=== PATIENT | male | born 1950 | race Caucasian/White ===

== ENCOUNTER → 2016-11-30 | Outpatient (CLI) | payer BC ==
[2016-11-30 07:19] LABS: Anion Gap 10 mmol/L; Blood Urea Nitrogen 32 mg/dL (9-20); Calcium 9.8 mg/dL (8.4-10.2); Carbon Dioxide 27 mmol/L (22-30); Chloride 104 mmol/L (98-107); Glucose 154 mg/dL (74-99); Non-African American GFR(MDRD) >60 (>60 ml/min/1.73 sqM); Potassium 4.6 mmol/L (3.5-5.1); Sodium 141 mmol/L (137-145)
--- NOTE | 2016-11-30 09:44 | MR ---
EXAMINATION TYPE: MR foot LT wo/w con DATE OF EXAM: 11/30/2016 COMPARISON: None available HISTORY: 66-year-old male with pain, redness, and swelling for 5 months, evaluate for left great toe osteomyelitis Technique: Multiplanar, multisequence images of the left foot were obtained before and after administ ration of 19 mL intravenous MultiHance gadolinium contrast. FINDINGS: There appears to be prior partial amputation of the first distal phalanx. The distal phalangeal base remains. Within this residual bone, there are 2 discrete circumscribed lesions measuring 11 x 8 x 11 mm and 8 x 7 x 11 mm. These are situated adjacent to each other oriented horizontally with the more m edial lesion projecting dorsally beyond the expected cortical margin. These show T2 bright signal and T1 hypointensity without any appreciable postcontrast enhancement. The surrounding bone shows preser douglas fatty marrow signal. There is no suspicious bone marrow replacement or bone marrow edema identified. Hallux valgus deformity with bunion and mild degenerative change at the first MTP joint. There is a moderate first MTP joint effusion. There is some corresponding enhancement suggesting some associated synovitis. The overlying extensor hallucis longus appear satisfactory. Mild edematous change within the plantar musculature nonspecific. Some mild dorsal mid foot degenerat freddy change especially at the talonavicular joint. IMPRESSION: 1. Prior partial great toe amputation. There are 2 cystic-appearing, nonenhancing lesions measuring u p to 1.1 cm within the residual distal phalanx. The exact etiology is uncertain. Some possibilities i nclude chronic granulomas or epidermal inclusion cysts. Surgical exploration can be considered if the patient remains symptomatic. 2. The signal changes within these lesions and in the surrounding bone do not suggest osteomyelitis. 3. 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 There is associated first MTP joint effusion and synovitis.
== END | disposition home or self-care (01) ==
LOC: RADMRIMAIN 06:35
PROVIDERS: ATTEND Internal Medicine Infectious Disease
DX: M19.072 Primary osteoarthritis, left ankle and foot (principal); M20.12 Hallux valgus (acquired), left foot; M65.872 Other synovitis and tenosynovitis, left ankle and foot
CPT/HCPCS: 80048; 73720; A9577

== ENCOUNTER → 2018-04-14 | Outpatient (CLI) | payer MEDICARE | END | disposition home or self-care (01) | LOC: LABWHC1 10:49 | PROVIDERS: ATTEND Internal Medicine | DX: E11.21 Type 2 diabetes mellitus with diabetic nephropathy (principal) | CPT/HCPCS: 36415; 83970 ==

== ENCOUNTER 2019-02-26 11:52 | Emergency (ER) | payer MEDICARE ==
[2019-02-26 12:05] VITALS: RESP 18
[2019-02-26] MEDS ORDERED: ACETAMINOPHEN TAB 500 MG TAB PO STA (13:24)
[2019-02-26] MEDS ORDERED: DIPH,PERTUS(ACELL)TETVAC-LF 0.5 ML VIAL IM ONE (13:24)
[2019-02-26] MEDS ORDERED: LIDOCAINE 1% INJ 10MG/ML (20 ML MDV) SQ ONE (13:24)
--- NOTE | 2019-02-26 13:32 | ED ---
General Adult HPI - General Chief complaint: Fall Stated complaint: fall 8' from ladder, head injury Time Seen by Provider: 02/26/19 13:07 Source: patient, RN notes reviewed Mode of arrival: ambulatory Limitations: no limitations - History of Present Illness Initial comments: 68-year-old male with a past medical history of prostate cancer, diabetes pam itus, hypertension presents to the emergency department for fall. Patient states he was getting off the roof of his motorhome. States he was climbing down a ladder when he fell onto his left side the back of his left head and his elbow. He did not lose consciousness. He does not take blood thinners. Patient states his feet were at about 3 or 4 feet when this happened. Denies any back pain or chest pain. Denies falling on his feet.Patient has no other complaints at this time including shortness of breath, chest pain, abdominal pain, nausea or vomiting, headache, or visual changes. - Related Data Allergies Allergy/AdvReac Type Severity Reaction Status Date / Time No Known Allergies Allergy Verified 02/26/19 12:05 Review of Systems ROS Statement: Those systems with pertinent positive or pertinent negative responses have been documented in the HPI. ROS Other: All systems not noted in ROS Statement are negative. Past Medical History Past Medical History: Cancer, Diabetes Mellitus, Hypertension Additional Past Medical History / Comment(s): prostate cancer History of Any Multi-Drug Resistant Organisms: None Reported Past Surgical History: Orthopedic Surgery Past Psychological History: Anxiety, Depression Smoking Status: Never smoker Past Alcohol Use History: None Reported Past Drug Use History: None Reported General Exam Limitations: no limitations General appearance: alert, in no apparent distress Head exam: Absent: atraumatic (patient has large hematoma to the posterior left scalp, parietal region) Eye exam: Present: normal appearance, PERRL, EOMI. Absent: scleral icterus, conjunctival injection, periorbital swelling ENT exam: Present: normal exam, mucous membranes moist Neck exam: Present: normal inspection, other (C-collar in place). Absent: tenderness, meningismus, full ROM, lymphadenopathy Respiratory exam: Present: normal lung sounds bilaterally. Absent: respiratory distress, wheezes, rales, rhonchi, stridor, chest wall tenderness (No ecchymosis or bruising of the chest back or abdomen) Cardiovascular Exam: Present: regular rate, normal rhythm, normal heart sounds. Absent: systolic murmur, diastolic murmur, rubs, gallop, clicks GI/Abdominal exam: Present: soft, normal bowel sounds. Absent: distended, tenderness, guarding, rebound, rigid Back exam: Absent: CVA tenderness (R), CVA tenderness (L), vertebral tenderness (No tenderness of the thoracic or lumbar spines) Neurological exam: Present: alert, oriented X3, CN II-XII intact Course Vital Signs 02/26/19 02/26/19 12:01 15:55 Temperature 98.4 F 98.0 F Pulse Rate 58 L 74 Respiratory 18 18 Rate Blood Pressure 132/71 137/82 O2 Sat by Pulse 98 98 Oximetry Procedures - Laceration Laceration #1 Consent Obtained: verbal consent Indication: laceration Site: upper extremity Size (cm): 3 Description: linear Depth: simple, single layer Anesthetic Used: lidocaine 1% Anesthesia Technique: local infiltration Amount (mls): 10 Pre-repair: wound explored, irrigated extensively (with saline pressure irrig ation), deep structures intact Type of Sutures: other (ethilon) Size of Sutures: 4-0 Number of Sutures: 4 Technique: simple, interrupted Patient Tolerated Procedure: well, no complications Medical Decision Making - Medical Decision Making 68-year-old male with a past medical history of prostate cancer, diabetes mellitus, hypertension presents to the emergency department for fall. Patient states she was getting off the roof of his motorhome and climbing down a ladder. States his feet were about 3 feet off the ground when he fell and hit his head. He also landed on his left elbow. No loss of consciousness. No blood thinners on board. On exam patient has a large hematoma noted of the posterior parietal left scalp. No focal neurologic deficits. Normal gait. Patient also appears to have a 2 cm laceration over the olecranon of the left elbow. No pain with movement of the left elbow. Patient does not have any evidence of trauma, tenderness, ecchymosis, or contusions on the chest abdomen or back. CT of the head and neck was obtained which showed no acute fracture or dislocation evident in the cervical spine and no acute intracranial hemorrhage mass effect or midline shift. X-ray of the left elbow showed a soft tissue laceration over the olecranon with no acute fracture or dislocation. This was cleaned thoroughly with saline pressure irrigation. 4 sutures were applied. Tetanus was updated. This is well approximated and has enough give to bend the elbow. Patient will follow up with primary care for recheck on head injury as well as laceration repair. He will return in 7-10 days for suture removal. Disposition Clinical Impression: Laceration, Fall, Head injury Disposition: HOME SELF-CARE Condition: Good Instructions (If sedation given, give patient instructions): Care For Your Stitches (ED), Laceration (ED), Head Injury (ED) Additional Instructions: Please monitor for signs infection such as spreading or streaking redness, drainage, fever. Follow-up with primary care in 1-2 days for recheck of your head as well as the sutures. Return in 7-10 days to have sutures removed. Is patient prescribed a controlled substance at d/c from ED?: No Referrals: Brandt De Jesus MD [Primary Care Provider] - 1-2 days Time of Disposition: 15:49
--- NOTE | 2019-02-26 14:56 | CT ---
EXAMINATION TYPE: CT brain clemente claire DATE OF EXAM: 02/26/2019 COMPARISON: NONE HISTORY: Fall from ladder, approximately 7 feet. Left superior head injury. CT DLP: 1498 mGycm. Automated Exposure Control for Dose Reduction was Utilized. TECHNIQUE: CT scan of the head and cervical spine are performed without contrast. FINDINGS: There is a left parieto-occipital scalp hematoma near the skull vertex measuring 1.4 cm in greatest thickness. There is no acute intracranial hemorrhage, mass effect, or midline shift identi fied. The ventricles and sulci are symmetrically prominent compatible with age-related volume loss. The globes are intact and the visualized sinuses are clear. Cervical spine is visualized in its entirety from C1 through upper thoracic levels and demonstrates s atisfactory alignment without evidence of acute fracture. Moderate multilevel degenerative disc dise ase is seen of the cervical spine with multilevel uncovertebral hypertrophy, intervertebral disc spac e narrowing, vacuum disc disease, as small anterior osteophytes, and facet arthropathy. There is mini mal retrolisthesis of C3 on C4, C4 and C5 and C5 on C6 and is likely on a degenerative basis. Prevert ebral soft tissue appears within normal limits. The C1-C2 articulation is unremarkable. Mild emphyse matous changes are seen of the lung apices as well as scattered areas of subsegmental atelectasis. IMPRESSION: 1. There is no acute fracture or dislocation evident in the cervical spine. 2. No acute intracranial hemorrhage, mass effect, or midline shift is seen. 3. Left posterior parietal-occipital scalp hematoma near the skull vertex measures 1.4 cm in greatest thickness. 4. Moderate multilevel degenerative disc disease of the cervical spine with multilevel malalignment l ikely on the basis of degenerative disc disease.
--- NOTE | 2019-02-26 14:58 | XR ---
EXAMINATION TYPE: XR elbow complete LT DATE OF EXAM: 02/26/2019 CLINICAL HISTORY: Left elbow laceration and pain after fall TECHNIQUE: Frontal, lateral and oblique images of the left elbow are obtained. COMPARISON: None FINDINGS: There is no acute fracture/dislocation evident in the left elbow. No abnormal fat pad sig ns are seen. Soft tissue laceration is seen overlying the olecranon. No radiopaque foreign body is se en. IMPRESSION: Soft tissue laceration over the olecranon with no acute fracture or dislocation in the le ft elbow.
[2019-02-26 15:59] VITALS: BP 137/82; PULSE 74; TEMP 98
== END 2019-02-26 15:55 | disposition home or self-care (01) ==
LOC: EC 11:52
DX: S51.012A Laceration without foreign body of left elbow, initial encounter (principal); S00.03XA Contusion of scalp, initial encounter; Z85.46 Personal history of malignant neoplasm of prostate; Z23 Encounter for immunization; W11.XXXA Fall on and from ladder, initial encounter; Y93.39 Activity, other involving climbing, rappelling and jumping off; Y92.009 Unspecified place in unspecified non-institutional (private) residence as the place of occurrence of the external cause
CPT/HCPCS: 12002; 70450; 72125; 90471; 90715; 99284

== ENCOUNTER 2020-04-27 23:24 | Inpatient (IN) | payer MEDICARE ==
[2020-04-28] MEDS: HYDROmorphone 1 MG/ML 1 ML SYRINGE IVP PRN ×7 (04:12→23:56)
[2020-04-28] MEDS: SODIUM CHLORIDE 0.9% 1,000 ML IV SCH ×2 (04:13→10:23)
[2020-04-28] MEDS: ONDANSETRON 4 MG/2 ML VIAL IVP PRN ×3 (04:23→23:56)
[2020-04-28 07:07] LABS: Glucose,Whole Blood 240 mg/dL (75-99)
[2020-04-28] MEDS: ATORVASTATIN 20 MG TAB PO SCH (07:16)
[2020-04-28] MEDS: SERTRALINE 100 MG TAB PO SCH ×2 (07:16→19:42)
[2020-04-28] MEDS: lisinopriL 20 MG TAB PO SCH (07:16)
[2020-04-28] MEDS: atenoloL 25 MG TAB PO SCH (07:16)
[2020-04-28] MEDS: ASPIRIN 81 MG PO SCH (07:16)
[2020-04-28] MEDS: glipiZIDE 5 MG TAB PO SCH (07:16)
[2020-04-28 07:29] LABS: Basophils # (A) 0.1 k/uL (0-0.2); Basophils % (A) 0 %; Eosinophils # (A) 0.1 k/uL (0-0.7); Eosinophils % (A) 0 %; HCT 47.3 % (39.0-53.0); HGB 15.4 gm/dL (13.0-17.5); Lymphocytes # (A) 1.1 k/uL (1.0-4.8); Lymphocytes % (A) 6 %; MCHC 32.6 g/dL (31.0-37.0); MCV 92.2 fL (80.0-100.0); Mean Platelet Volume 7.1; Monocytes % (A) 6 %; Neutrophils # (A) 15.3 k/uL (1.3-7.7); Neutrophils % (A) 86 %; Platelet Count 259 k/uL (150-450); RBC 5.13 m/uL (4.30-5.90); RDW 12.8 % (11.5-15.5); WBC 17.9 k/uL (3.8-10.6)
[2020-04-28 11:27] LABS: African American GFR (CKD) 54.7 (60.0-200.0); Anion Gap 9.5 mmol/L (4.00-12.00); BUN/Creat Ratio 25.33 Ratio (12.00-20.00); Calcium 9.3 mg/dL (8.7-10.3); Carbon Dioxide 22.5 mmol/L (21.6-31.8); Non-African American GFR(CKD) 47.2 (60.0-200.0); Potassium 4.6 mmol/L (3.5-5.5)
[2020-04-28 11:39] LABS: Glucose,Whole Blood 175 mg/dL (75-99)
[2020-04-28 16:30] LABS: Glucose,Whole Blood 162 mg/dL (75-99)
--- NOTE | 2020-04-28 16:53 | P.HPIM ---
History of Present Illness H&P Date: 04/28/20 Chief Complaint: Transfer from [facility] for Acute pancreatitis Mr. Perez is a 70 y/o male with the PMH of hypertension, diabetes, prostate cancer, anxiety with depression sent in from [facility] for Acute Pancreatitis. Patient presented to [facility] with a chief complaint of epigastric pain that started 30 minutes ago. Initially in the EMS he was considered STEMI alert, given 325 mg of aspirin along with Dilaudid and Zofran for nausea and vomiting. EKG done at [facility] showed no acute ST elevation MT he was given 1 L of normal saline bolus and started on IV fluids. Patient's troponins and cardiac CPK level along with CK-MB levels were within normal limits. And his labs were consistent with pancreatitis which showed elevated amylase and lipase. And he caught an abdominal CAT scan with contrast showing acute pancreatitis. Patient had his lactic acid levels checked which were 3.8 and a repeat with fluids was 1. Patient also had elevated white count at 29 and blood cultures were drawn at that time. CT scan did not show evidence of abscess and clinically he did not have fevers so he was not started on antibiotics. So the patient is transferred to [facility] for GI consultation as the patient also had significant history of previous pancreatitis 5 years ago. Patient mentions that he had an acute episode of pancreatitis 5 years ago, he was not sure what the etiology was at that time. On reviewing his medications patient was started on glipizide 4 days ago. Patient states that he has been h aving epigastric pain which is 8 out of 10 in intensity. It radiates to the entire abdomen. Associated with nausea. He states that Zofran is helping with the vomiting. Patient had a bowel movement this morning which was large. He denies having any blood in his stool. Patient denies having any fevers chills or rigors. No chest pain or palpitations. His pain is mostly in the epigastric area below his rib cage. Patient denies having any chest pain or palpitations. No orthopnea PND or lower extremity swelling. Patient denies having any change in his weight recently. Patient denies alcohol abuse. Records from [facility] have been reviewed. Patient had an EKG in the ED which was showing sinus rhythm. No ST or T-wave elevation. Patient had troponin less than 0.012. Amylase of 3919, white count of 29, hemoglobin 16.7, platelets 406. Sodium 140, potassium 4.1, para 98, bicarbonate 30, B and 31, creatinine 1.2. Calcium 10.1, AST 33, ALT 21, gram-positive 78, bilirubin 0.7 lipase more than 20,000S$0.14 is consistent with acute pancreatitis and nonobstructing left renal calculi and large bowel fluid levels suggestive of mildly a day. Numerous bilateral renal cortical cysts. PT of 10.9, INR of 1.03. Chest x-ray showing no acute cardiopulmonary process. Review of Systems REVIEW OF SYSTEMS: PSYCH: No active anxiety or depression NEURO:No c/o weakness of the extremties, No facial droop, No speech abnormalities. VASCULAR: Peripheral nervous system within the normal limits no edema HEMATOLOGIC: No history of easy bleeding and bruising . No recent infections . RESPIRATORY: No cough, No SOB, No chest discomfort. IMMUNE: No infections INTEGUMENT: no rashes OPHTHALMOLOGIC: No blurry vision and no eye discharge : No dysuria or hematuria CARDIAC: No chest pain , shortness of breath , paroxysmal nocturnal dyspnea MUSCULOSKELETAL : No Aches or pains in the joints or muscles. GI: As per HPI Past Medical History Past Medical History: Cancer, Diabetes Mellitus, Hypertension Additional Past Medical History / Comment(s): prostate cancer History of Any Multi-Drug Resistant Organisms: None Reported Past Surgical History: Heart Catheterization, Orthopedic Surgery Additional Past Surgical History / Comment(s): shoulders, knee surgeries and then amputation of left great toe (6years) infection Past Anesthesia/Blood Transfusion Reactions: No Reported Reaction Past Psychological History: Anxiety, Depression Smoking Status: Never smoker Past Alcohol Use History: None Reported Past Drug Use History: None Reported - Past Family History Mother Family Medical History: Cancer Additional Family Medical History / Comment(s): ovarian and lung cancer Father Family Medical History: Cancer Medications and Allergies Home Medications Medication Instructions Recorded Confirmed Type ALPRAZolam [Xanax] 0.25 mg PO HS 04/28/20 04/28/20 History Aspirin [Adult Low Dose Aspirin EC] 81 mg PO DAILY 04/28/20 04/28/20 History Enalapril Maleate [Vasotec] 5 mg PO BID 04/28/20 04/28/20 History Latanoprost/Pf [Latanoprost 0.005% 1 drop BOTH EYES HS 04/28/20 04/28/20 History Eye Drop] Sertraline HCl [Zoloft] 100 mg BID 04/28/20 04/28/20 History Simvastatin 40 mg DAILY 04/28/20 04/28/20 History atenoloL [Atenolol] 25 mg PO DAILY 04/28/20 04/28/20 History glipiZIDE XL [Glucotrol Xl] 5 mg PO DAILY 04/28/20 04/28/20 History metFORMIN HCL ER [Glucophage Xr] 500 mg PO AC-BID 04/28/20 04/28/20 History Allergies Allergy/AdvReac Type Severity Reaction Status Date / Time No Known Allergies Allergy Verified 04/28/20 07:13 Physical Exam Vitals: Vital Signs Temp Pulse Resp BP Pulse Ox 04/28/20 14:31 97.8 F 67 15 127/67 94 L 04/28/20 07:00 97.9 F 62 17 187/80 96 04/28/20 01:40 98.1 F 94 20 151/73 94 L Intake and Output 04/28/20 04/28/20 04/28/20 06:59 14:59 22:59 Intake Total 0 Balance 0 Intake: Oral 0 Other: Voiding Method Toilet # Voids 1 5 Weight 88 kg PHYSICAL EXAM GEN. APPEARANCE: alert, appears to be in pain pointing towards his epigastric area HEAD EXAM: atraumatic, normocephalic, normal inspection EYE EXAM: No pallor. No icterus. ENT EXAM: Mucous membranes are dry. NECK EXAM: No JVD. No thyromegaly. RESPIRATORY EXAM: Bilateral breath sounds are positive. No wheeze or crackles. CARDIOVASCULAR EXAM: S1-S2 heard. No additional sounds. GI/ABDOMINAL EXAM: Epigastric tenderness. Nondistended. Bowel sounds are normal. EXTREMITIES EXAM: No pedal edema. BACK EXAM: normal inspection NEUROLOGICAL EXAM: alert, oriented X3, no focal neurological deficits PSYCHIATRIC EXAM: normal affect, normal mood SKIN EXAM: no rash Results CBC & Chem 7: 04/28/20 06:49 04/28/20 06:49 Labs: Abnormal Lab Results - Last 24 Hours (Table) 04/28/20 04/28/20 04/28/20 Range/Units 06:49 06:49 07:05 WBC 17.9 H (3.8-10.6) k/uL Neutrophils # 15.3 H (1.3-7.7) k/uL BUN 38.0 H (9.0-27.0) mg/dL Est GFR (CKD-EPI)AfAm 54.7 L (60.0-200.0) Est GFR (CKD-EPI)NonAf 47.2 L (60.0-200.0) BUN/Creatinine Ratio 25.33 H (12.00-20.00) Ratio Glucose 247 H (70-110) mg/dL POC Glucose (mg/dL) 240 H (75-99) mg/dL Lipase 900 H (14-60) U/L 04/28/20 Range/Units 11:37 WBC (3.8-10.6) k/uL Neutrophils # (1.3-7.7) k/uL BUN (9.0-27.0) mg/dL Est GFR (CKD-EPI)AfAm (60.0-200.0) Est GFR (CKD-EPI)NonAf (60.0-200.0) BUN/Creatinine Ratio (12.00-20.00) Ratio Glucose (70-110) mg/dL POC Glucose (mg/dL) 175 H (75-99) mg/dL Lipase (14-60) U/L Thrombosis Risk Factor Assmnt - Choose All That Apply Any of the Below Risk Factors Present?: No Other Risk Factors: Yes Each Risk Factor Represents 2 Points: Age 61-74 years Thrombosis Risk Factor Assessment Total Risk Factor Score: 2 Thrombosis Risk Factor Assessment Level: Low Risk Assessment and Plan Assessment: ASSESSMENT Acute pancreatitis Leukocytosis Acute kidney injury Hypertension Type 2 diabetes mellitus Dyslipidemia Anxiety with depression PLAN: Continue with nothing by mouth except for meds, IV fluids at 100 mL/h. Pain management with Dilaudid. We will consult GI and surgery services. Will repeat the labs. Further recommendations depending on the progress of the patient.
[2020-04-28 17:16] LABS: ALT 17 U/L (4-49); AST 19 U/L (17-59); African American GFR (CKD) 72 (>60 ml/min/1.73 sqM); Albumin 3.8 g/dL (3.5-5.0); Albumin/Globulin Ratio 1.4; Alkaline Phosphatase 61 U/L (38-126); Anion Gap 9 mmol/L; Blood Urea Nitrogen 34 mg/dL (9-20); Calcium 8.9 mg/dL (8.4-10.2); Carbon Dioxide 22 mmol/L (22-30); Chloride 109 mmol/L (98-107); Globulin 2.7 g/dL; Glucose 178 mg/dL (74-99); Non-African American GFR(CKD) 63 (>60 ml/min/1.73 sqM); Potassium 4.9 mmol/L (3.5-5.1); Sodium 140 mmol/L (137-145); Total Bilirubin 0.5 mg/dL (0.2-1.3); Total Protein 6.5 g/dL (6.3-8.2); Triglycerides 93 mg/dL (<150)
[2020-04-28 17:22] LABS: Lipase 2563 U/L (23-300)
[2020-04-28 17:54] LABS: Amylase 515 U/L (30-110)
[2020-04-28] MEDS: HEPARIN SODIUM,PORCINE 5,000 UNIT/ML 1 ML VIAL SQ SCH (19:42)
[2020-04-28] MEDS: ALPRAZolam 0.25 MG TAB PO SCH (19:42)
[2020-04-28] MEDS: FAMOTIDINE 20 MG/2 ML VIAL IV SCH (19:42)
[2020-04-28] MEDS: LATANOPROST 0.005% OPHTH DROPS 2.5 ML BTL BOTH EYES SCH (20:38)
[2020-04-28 21:07] LABS: Glucose,Whole Blood 151 mg/dL (75-99)
[2020-04-29] MEDS: HYDROmorphone 1 MG/ML 1 ML SYRINGE IVP PRN ×5 (04:15→21:41)
[2020-04-29] MEDS: SODIUM CHLORIDE 0.9% 1,000 ML IV SCH ×2 (04:16→12:56)
[2020-04-29 06:38] LABS: Basophils # (A) 0.1 k/uL (0-0.2); Basophils % (A) 0 %; Eosinophils % (A) 0 %; HCT 42.8 % (39.0-53.0); HGB 13.3 gm/dL (13.0-17.5); Hypochromasia Slight; Lymphocytes # (A) 0.9 k/uL (1.0-4.8); Lymphocytes % (A) 4 %; MCH 29.5 pg (25.0-35.0); MCHC 31.2 g/dL (31.0-37.0); MCV 94.7 fL (80.0-100.0); Mean Platelet Volume 7.3; Monocytes # (A) 1.6 k/uL (0-1.0); Monocytes % (A) 6 %; Neutrophils # (A) 23.2 k/uL (1.3-7.7); Neutrophils % (A) 89 %; Platelet Count 223 k/uL (150-450); RBC 4.52 m/uL (4.30-5.90); WBC 26.2 k/uL (3.8-10.6)
[2020-04-29 06:44] LABS: Glucose,Whole Blood 162 mg/dL (75-99)
[2020-04-29] MEDS: ATORVASTATIN 20 MG TAB PO SCH (07:58)
[2020-04-29] MEDS: atenoloL 25 MG TAB PO SCH (07:58)
[2020-04-29] MEDS: ASPIRIN 81 MG PO SCH (07:58)
[2020-04-29] MEDS: glipiZIDE 5 MG TAB PO SCH (07:58)
[2020-04-29] MEDS: SERTRALINE 100 MG TAB PO SCH ×2 (07:58→20:00)
[2020-04-29] MEDS: lisinopriL 20 MG TAB PO SCH (07:59)
[2020-04-29] MEDS: FAMOTIDINE 20 MG/2 ML VIAL IV SCH (07:59)
[2020-04-29] MEDS: HEPARIN SODIUM,PORCINE 5,000 UNIT/ML 1 ML VIAL SQ SCH ×2 (07:59→20:00)
[2020-04-29 09:06] LABS: BUN/Creat Ratio 26.92 Ratio (12.00-20.00); Calcium 8.6 mg/dL (8.7-10.3); Non-African American GFR(CKD) 56.1 (60.0-200.0); Potassium 5.4 mmol/L (3.5-5.5)
[2020-04-29 11:19] LABS: Glucose,Whole Blood 136 mg/dL (75-99)
--- NOTE | 2020-04-29 15:00 | P.GSCN ---
History of Present Illness Consult date: 04/29/20 History of present illness: CHIEF COMPLAINT: Abdominal pain HISTORY OF PRESENT ILLNESS: This is a 70-year-old male with a known history of hypertension, diabetes, prostate cancer with prostatectomy, anxiety and depression. He was a transfer from [facility] for acute pancreatitis. Patient reports that he has had epigastric abdominal pain intermittently for ab out one month. His symptoms can worsened over the last 3 days. Pain was very severe and sharp in the epigastric area. He also is having vomiting and poor oral intake. Yesterday he had 3 episodes of explosive diarrhea prior to being brought into the emergency room. He reports no blood in the stool or emesis. He has had a prior episode of pancreatitis about 6 years ago and at that time he was told he had a blockage from a stone. Patient still has his gallbladder. Lipase on admission was 2563 amylase 515 LFTs normal. At [facility] a CT of the abdomen report showed inflammatory changes around the pancreas consistent with pancreatitis and large bowel fluid levels possible ileus. Patient denies any fever or chills or sweats. Denies any difficulty urinating. PAST MEDICAL HISTORY: See list. PAST SURGICAL HISTORY: See list. MEDICATIONS: See list. ALLERGIES: See list. SOCIAL HISTORY: No illicit drug use. REVIEW OF SYSTEMS: CONSTITUTIONAL: Denies fever or chills. HEENT: Denies blurred vision, vision changes, or eye pain. Denies hemoptysis ENDOCRINE: Denies heat or cold intolerance. CARDIOVASCULAR: Denies chest pain or pressure. RESPIRATORY: No shortness of breath. GASTROINTESTINAL: Denies abdominal pain. Denies nausea or vomiting. NEURO: Denies history of seizures. PSYCH: No depression or suicidal ideation HEMATOLOGIC: Denies bleeding disorders. LYMPHATIC: The patient denies any lumps and bumps around the neck. GENITOURINARY: Denies any blood in urine or increased urinary frequency. MUSCULOSKELETAL: Denies myalgias. Denies joint swelling. Denies decreased range of motion beyond patients baseline. SKIN: Denies pruitis. Denies rash. PHYSICAL EXAM: VITAL SIGNS: Reviewed GENERAL: Well-developed in no acute distress. HEENT: No sclera icterus. Extraocular movements grossly intact. Moist buccal mucosa. Head is atraumatic, normocephalic. Hears conversational speech. No nasal drainage. NECK: Supple without lymphadenopathy. CHEST: Non-labored respirations and equal bilateral excursions. CARDIOVASCULAR: Palpable 2+ radial pulses. ABDOMEN: Soft. Mildly distended. Epigastric tenderness with palpation MUSCULOSKELETAL: No clubbing or cyanosis. NEUROLOGIC: No focal or lateralizing signs. Cranial nerves II through XII grossly intact. PSYCH: Appropriate affect. Alert and oriented to person, place and time. SKIN: Well perfused. Good skin turgor. LABORATORY DATA: WBC 26.2 AST 19 ALT 17 total bili 0.5 lipase 2563 down to 265 amylase 515 IMAGING: Abdominal ultrasound pending ASSESSMENT: 1. Acute pancreatitis 2. Possible ileus 3. Diabetes mellitus type 2 4. Essential hypertension 5. History of prostate cancer 6. General anxiety and depression PLAN: -Agree with checking abdominal ultrasound -Keep patient nothing by mouth except for ice chips -Continue IV fluids -GI prophylaxis Pepcid and DVT prophylaxis subcu heparin Thank you for this consultation Physician Manager Plant note has been reviewed by physician. Signing provider agrees with the documented findings, assessment, and plan of care. Past Medical History Past Medical History: Cancer, Diabetes Mellitus, Hypertension Additional Past Medical History / Comment(s): prostate cancer History of Any Multi-Drug Resistant Organisms: None Reported Past Surgical History: Heart Catheterization, Orthopedic Surgery Additional Past Surgical History / Comment(s): shoulders, knee surgeries and then amputation of left great toe (6years) infection Past Anesthesia/Blood Transfusion Reactions: No Reported Reaction Past Psychological History: Anxiety, Depression Smoking Status: Never smoker Past Alcohol Use History: None Reported Past Drug Use History: None Reported - Past Family History Mother Family Medical History: Cancer Additional Family Medical History / Comment(s): ovarian and lung cancer Father Family Medical History: Cancer Medications and Allergies Home Medications Medication Instructions Recorded Confirmed Type ALPRAZolam [Xanax] 0.25 mg PO HS 04/28/20 04/28/20 History Aspirin [Adult Low Dose Aspirin EC] 81 mg PO DAILY 04/28/20 04/28/20 History Enalapril Maleate [Vasotec] 5 mg PO BID 04/28/20 04/28/20 History Latanoprost/Pf [Latanoprost 0.005% 1 drop BOTH EYES HS 04/28/20 04/28/20 History Eye Drop] Sertraline HCl [Zoloft] 100 mg BID 04/28/20 04/28/20 History Simvastatin 40 mg DAILY 04/28/20 04/28/20 History atenoloL [Atenolol] 25 mg PO DAILY 04/28/20 04/28/20 History glipiZIDE XL [Glucotrol Xl] 5 mg PO DAILY 04/28/20 04/28/20 History metFORMIN HCL ER [Glucophage Xr] 500 mg PO AC-BID 04/28/20 04/28/20 History Allergies Allergy/AdvReac Type Severity Reaction Status Date / Time No Known Allergies Allergy Verified 04/28/20 07:13 Surgical - Exam Vital Signs Temp Pulse Resp BP Pulse Ox 98.1 F 94 20 151/73 94 L 04/28/20 01:40 04/28/20 01:40 04/28/20 01:40 04/28/20 01:40 04/28/20 01:40 Results - Labs 04/29/20 05:23 04/29/20 05:23 Abnormal Lab Results - Last 24 Hours (Table) 04/28/20 04/28/20 04/28/20 Range/Units 16:19 16:52 21:05 WBC (3.8-10.6) k/uL Neutrophils # (1.3-7.7) k/uL Lymphocytes # (1.0-4.8) k/uL Monocytes # (0-1.0) k/uL Chloride 109 H (98-107) mmol/L Carbon Dioxide (21.6-31.8) mmol/L BUN 34 H (9-20) mg/dL Est GFR (CKD-EPI)NonAf (60.0-200.0) BUN/Creatinine Ratio (12.00-20.00) Ratio Glucose 178 H (74-99) mg/dL POC Glucose (mg/dL) 162 H 151 H (75-99) mg/dL Calcium (8.7-10.3) mg/dL Amylase 515 H* (30-110) U/L Lipase 2563 H (23-300) U/L 04/29/20 04/29/20 04/29/20 Range/Units 05:23 05:23 06:43 WBC 26.2 H (3.8-10.6) k/uL Neutrophils # 23.2 H (1.3-7.7) k/uL Lymphocytes # 0.9 L (1.0-4.8) k/uL Monocytes # 1.6 H (0-1.0) k/uL Chloride 111 H (98-107) mmol/L Carbon Dioxide 19.0 L (21.6-31.8) mmol/L BUN 35.0 H (9-20) mg/dL Est GFR (CKD-EPI)NonAf 56.1 L (60.0-200.0) BUN/Creatinine Ratio 26.92 H (12.00-20.00) Ratio Glucose 170 H (74-99) mg/dL POC Glucose (mg/dL) 162 H (75-99) mg/dL Calcium 8.6 L (8.7-10.3) mg/dL Amylase (30-110) U/L Lipase 265 H (23-300) U/L 04/29/20 Range/Units 11:18 WBC (3.8-10.6) k/uL Neutrophils # (1.3-7.7) k/uL Lymphocytes # (1.0-4.8) k/uL Monocytes # (0-1.0) k/uL Chloride (98-107) mmol/L Carbon Dioxide (21.6-31.8) mmol/L BUN (9-20) mg/dL Est GFR (CKD-EPI)NonAf (60.0-200.0) BUN/Creatinine Ratio (12.00-20.00) Ratio Glucose (74-99) mg/dL POC Glucose (mg/dL) 136 H (75-99) mg/dL Calcium (8.7-10.3) mg/dL Amylase (30-110) U/L Lipase (23-300) U/L Diabetes panel 04/28/20 04/29/20 Range/Units 16:52 05:23 Sodium 140 142 (137-145) mmol/L Potassium 4.9 5.4 (3.5-5.1) mmol/L Chloride 109 H 111 H (98-107) mmol/L Carbon Dioxide 22 19.0 L (22-30) mmol/L BUN 34 H 35.0 H (9-20) mg/dL Creatinine 1.19 1.3 (0.66-1.25) mg/dL Glucose 178 H 170 H (74-99) mg/dL Calcium 8.9 8.6 L (8.4-10.2) mg/dL AST 19 (17-59) U/L ALT 17 (4-49) U/L Alkaline Phosphatase 61 (38-126) U/L Total Protein 6.5 (6.3-8.2) g/dL Albumin 3.8 (3.5-5.0) g/dL Triglycerides 93 (<150) mg/dL Calcium panel 04/28/20 04/29/20 Range/Units 16:52 05:23 Calcium 8.9 8.6 L (8.4-10.2) mg/dL Albumin 3.8 (3.5-5.0) g/dL Pituitary panel 04/28/20 04/29/20 Range/Units 16:52 05:23 Sodium 140 142 (137-145) mmol/L Potassium 4.9 5.4 (3.5-5.1) mmol/L Chloride 109 H 111 H (98-107) mmol/L Carbon Dioxide 22 19.0 L (22-30) mmol/L BUN 34 H 35.0 H (9-20) mg/dL Creatinine 1.19 1.3 (0.66-1.25) mg/dL Glucose 178 H 170 H (74-99) mg/dL Calcium 8.9 8.6 L (8.4-10.2) mg/dL Adrenal panel 04/28/20 04/29/20 Range/Units 16:52 05:23 Sodium 140 142 (137-145) mmol/L Potassium 4.9 5.4 (3.5-5.1) mmol/L Chloride 109 H 111 H (98-107) mmol/L Carbon Dioxide 22 19.0 L (22-30) mmol/L BUN 34 H 35.0 H (9-20) mg/dL Creatinine 1.19 1.3 (0.66-1.25) mg/dL Glucose 178 H 170 H (74-99) mg/dL Calcium 8.9 8.6 L (8.4-10.2) mg/dL Total Bilirubin 0.5 (0.2-1.3) mg/dL AST 19 (17-59) U/L ALT 17 (4-49) U/L Alkaline Phosphatase 61 (38-126) U/L Total Protein 6.5 (6.3-8.2) g/dL Albumin 3.8 (3.5-5.0) g/dL
[2020-04-29] MEDS: PIPERACILLIN-TAZOBACTAM 3.375 GM in SODIUM CHLORIDE 0.9% 100 ML IVPB SCH ×2 (16:11→23:03)
[2020-04-29] MEDS: LACTATED RINGERS 1,000 ML IV SCH ×2 (16:13→20:02)
[2020-04-29 16:21] LABS: Glucose,Whole Blood 99 mg/dL (75-99)
--- NOTE | 2020-04-29 16:24 | US ---
EXAMINATION TYPE: US abdomen complete DATE OF EXAM: 04/29/2020 COMPARISON: CT 06/29/2013, US 06/29/2013 CLINICAL HISTORY: Pancreatitis. Difficult exam due to overlying bowel gas EXAM MEASUREMENTS: Liver Length: 16.6 cm Gallbladder Wall: 0.2 cm CBD: 0.8 cm Spleen: 10.4 cm Right Kidney: 10.5 x 5.3 x 5.5 cm Left Kidney: 10.7 x 5.3 x 5.4 cm Pancreas: Obscured by bowel gas Liver: Coarse echogenic echotexture Gallbladder: wnl Evidence for sonographic De La Torre's sign: No CBD: at the upper limit of normal Spleen: wnl Right Kidney: No hydronephrosis or masses seen. Difficult visualization due to overlying bowel gas. Echogenic focus at the lower pole the right kidney is indeterminate measuring 5 mm Left Kidney: No hydronephrosis or masses seen. Difficult visualization due to overlying bowel gas Upper IVC: wnl Abd Aorta: Obscured by overlying bowel gas The liver is echogenic. The intrahepatic portion of the IVC and proximal abdominal aorta are within normal limits. There is no evidence of cholelithiasis. Common bile duct is upper limit of normal. The spleen is unremarkable. Kidneys are symmetric and free of hydronephrosis. No renal lesions are seen on this exam. IMPRESSION: Findings may represent hepatic steatosis, liver may be enlarged. Borderline common bile d uct measurement. Exam is limited. Additional findings above.
[2020-04-29] MEDS: ALPRAZolam 0.25 MG TAB PO SCH (19:59)
[2020-04-29] MEDS: FAMOTIDINE 20 MG TAB PO SCH (19:59)
[2020-04-29 20:25] LABS: Glucose,Whole Blood 108 mg/dL (75-99)
--- NOTE | 2020-04-29 21:38 | P.PN ---
Subjective This is a pleasant 70 years old male with multiple medical problem, and was transferred from [facility] for acute pancreatitis. Patient denies history of ventral alcohol however he presents with epigastric abdominal pain and tenderness which is a still significantly present causing distress to the patient, no nausea vomiting but the patient is nothing by mouth. He has normal bowel movement but is passing flatus. Vital signs and labs are reviewed, he is hemodynamically stable. Labs showing trending down lipase from more than 20,000 down to 265 today. WBC is trending up to 26K. Creatinine is normal. Surgery and GI team were consulted Gallbladder ultrasound by surgery team showing no cholelithiasis with hepatic steatosis Patient remains on IV fluids at 100 mL per hour as well as Zosyn and by surgery team however the suspicion of infection is low, we will check a pro-calcitonin Review of systems CONSTITUTIONAL: No fever, no malaise, no fatigue. HEENT: No recent visual problems or hearing problems. Denied any sore throat. CARDIOVASCULAR: No orthopnea, PND, no palpitations, no syncope. PULMONARY: No shortness of breath, no cough, no hemoptysis. GASTROINTESTINAL: No diarrhea, no nausea, no vomiting,. Normoactive bowel sounds. NEUROLOGICAL: No headaches, no weakness, no numbness. HEMATOLOGICAL: Denies any bleeding or petechiae. Active Medications Generic Name Dose Route Start Last Admin Trade Name Freq PRN Reason Stop Dose Admin Alprazolam 0.25 mg 04/28/20 21:00 04/29/20 19:59 Alprazolam 0.25 Mg Tab PO 0.25 mg HS CJ Administration Aspirin 81 mg 04/28/20 09:00 04/29/20 07:58 Aspirin 81 Mg PO 81 mg DAILY CJ Administration Atenolol 25 mg 04/28/20 09:00 04/29/20 07:58 Atenolol 25 Mg Tab PO 25 mg DAILY CJ Administration Atorvastatin Calcium 20 mg 04/28/20 09:00 04/29/20 07:58 Atorvastatin 20 Mg Tab PO 20 mg DAILY CJ Administration Famotidine 20 mg 04/29/20 21:00 04/29/20 19:59 Famotidine 20 Mg Tab PO 20 mg Q12HR CJ Administration Glipizide 5 mg 04/28/20 09:00 04/29/20 07:58 Glipizide 5 Mg Tab PO 5 mg DAILY CJ Administration Heparin Sodium (Porcine) 5,000 unit 04/28/20 21:00 04/29/20 20:00 Heparin Sodium,Porcine 5,000 Unit/Ml 1 Ml Vial SQ 5,000 unit Q12HR CJ Administration Hydromorphone HCl 2 mg 04/28/20 16:02 04/29/20 17:14 Hydromorphone 1 Mg/Ml 1 Ml Syringe IVP 2 mg Q4HR PRN Administration Severe Pain Lactated Ringer's 1,000 mls @ 200 mls/hr 04/29/20 14:30 04/29/20 20:02 Lactated Ringers IV Not Given .Q5H CJ Piperacillin Sod/Tazobactam 100 mls @ 25 mls/hr 04/29/20 16:00 04/29/20 16:11 Sod 3.375 gm/ Sodium Chloride IVPB 25 mls/hr Q8HR CJ Administration Latanoprost 1 drops 04/28/20 21:00 04/28/20 20:38 Latanoprost 0.005% Ophth Drops 2.5 Ml Btl BOTH EYES Not Given HS CJ Lisinopril 20 mg 04/28/20 09:00 04/29/20 07:59 Lisinopril 20 Mg Tab PO 20 mg DAILY CJ Administration Ondansetron HCl 4 mg 04/28/20 04:17 04/28/20 23:56 Ondansetron 4 Mg/2 Ml Vial IVP 4 mg Q6HR PRN Administration Nausea And Vomiting Sertraline HCl 100 mg 04/28/20 09:00 04/29/20 20:00 Sertraline 100 Mg Tab PO 100 mg BID CJ Administration Objective - Vital Signs Vital signs: Vital Signs Temp 98.1 F 04/29/20 14:50 Pulse 76 04/29/20 14:50 Resp 18 04/29/20 14:50 BP 135/73 04/29/20 14:50 Pulse Ox 93 L 04/29/20 14:50 Intake & Output 04/28/20 04/29/20 04/29/20 18:59 06:59 18:59 Other: Voiding Method Toilet Toilet # Voids 5 3 - Exam GENERAL: The patient is alert and oriented x3, not in any acute distress. Well developed, well nourished. HEENT: Pupils are round and equally reacting to light. EOMI. No scleral icterus. No conjunctival pallor. Normocephalic, atraumatic. No pharyngeal erythema. No thyromegaly. CARDIOVASCULAR: S1 and S2 present. No murmurs, rubs, or gallops. PULMONARY: Chest is clear to auscultation, no wheezing or crackles. -ABDOMEN: Soft, epigastric pain and tenderness with no rebound tenderness, nondistended, normoactive bowel sounds. No palpable organomegaly. MUSCULOSKELETAL: No joint swelling or deformity. EXTREMITIES: No cyanosis, clubbing, or pedal edema. NEUROLOGICAL: Gross neurological examination did not reveal any focal deficits. SKIN: No rashes. no petechiae. - Labs CBC & Chem 7: 04/29/20 05:23 04/29/20 05:23 Labs: Abnormal Lab Results - Last 24 Hours (Table) 04/28/20 04/29/20 04/29/20 Range/Units 21:05 05:23 05:23 WBC 26.2 H (3.8-10.6) k/uL Neutrophils # 23.2 H (1.3-7.7) k/uL Lymphocytes # 0.9 L (1.0-4.8) k/uL Monocytes # 1.6 H (0-1.0) k/uL Chloride 111 H (96-109) mmol/L Carbon Dioxide 19.0 L (21.6-31.8) mmol/L BUN 35.0 H (9.0-27.0) mg/dL Est GFR (CKD-EPI)NonAf 56.1 L (60.0-200.0) BUN/Creatinine Ratio 26.92 H (12.00-20.00) Ratio Glucose 170 H (70-110) mg/dL POC Glucose (mg/dL) 151 H (75-99) mg/dL Calcium 8.6 L (8.7-10.3) mg/dL Lipase 265 H (14-60) U/L 04/29/20 04/29/20 Range/Units 06:43 11:18 WBC (3.8-10.6) k/uL Neutrophils # (1.3-7.7) k/uL Lymphocytes # (1.0-4.8) k/uL Monocytes # (0-1.0) k/uL Chloride (96-109) mmol/L Carbon Dioxide (21.6-31.8) mmol/L BUN (9.0-27.0) mg/dL Est GFR (CKD-EPI)NonAf (60.0-200.0) BUN/Creatinine Ratio (12.00-20.00) Ratio Glucose (70-110) mg/dL POC Glucose (mg/dL) 162 H 136 H (75-99) mg/dL Calcium (8.7-10.3) mg/dL Lipase (14-60) U/L Assessment and Plan Assessment: Acute pancreatitis Leukocytosis hepatic steatosis Acute kidney injury, resolved Hypertension Type 2 diabetes mellitus Dyslipidemia Anxiety with depression, 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 Continue with IV fluids, GI rest, pain medication. Surgery and GI team are consulted and they are following the patient closely, I agree with checking for CHRISTINA, IgG subclass and triglyceride level Labs and medication were reviewed.. Continue same treatment. Continue with symptomatic treatment. Resume home medication. Monitor lytes and vitals. DVT and GI prophylaxis. Further recommendationsas per clinical course of the patient DVT prophylaxis: Subcutaneous heparin GI Prophylaxis: Pepcid
[2020-04-29] MEDS: LATANOPROST 0.005% OPHTH DROPS 2.5 ML BTL BOTH EYES SCH (22:42)
[2020-04-30] MEDS: HYDROmorphone 1 MG/ML 1 ML SYRINGE IVP PRN ×4 (02:06→19:03)
[2020-04-30] MEDS: LACTATED RINGERS 1,000 ML IV SCH ×4 (02:10→16:03)
[2020-04-30 06:23] LABS: Basophils # (A) 0.1 k/uL (0-0.2); Basophils % (A) 0 %; Eosinophils % (A) 0 %; HCT 37.9 % (39.0-53.0); HGB 12.1 gm/dL (13.0-17.5); Lymphocytes % (A) 6 %; MCH 29.8 pg (25.0-35.0); MCV 93.3 fL (80.0-100.0); Monocytes % (A) 6 %; Neutrophils # (A) 15.4 k/uL (1.3-7.7); Neutrophils % (A) 87 %; Platelet Count 212 k/uL (150-450); RBC 4.06 m/uL (4.30-5.90); WBC 17.7 k/uL (3.8-10.6)
[2020-04-30 06:47] LABS: Glucose,Whole Blood 100 mg/dL (75-99)
--- NOTE | 2020-04-30 07:14 | P.CONS ---
History of Present Illness - Reason for Consult Consult date: 04/29/20 Pancreatitis Requesting physician: Darrick E Sheet - Chief Complaint Abdominal pain - History of Present Illness 70-year-old male with medical history significant for diabetes mellitus, prostate cancer status post prostatectomy, anxiety, depression, hypertension and a remote history of pancreatitis approximately 5 years ago who presented to the hospital due to complaints of abdominal pain. He describes sharp severe abdominal pain across his whole abdomen but predominantly in the epigastric region of his abdomen. Pain is persistent with associated nausea and vomiting prior to presentation. No further episodes of vomiting but the patient is experiencing nausea. Patient denies any prior cholecystectomy or history of symptomatic cholelithiasis. Patient does report a history of heavy alcohol use from the ages of [age] but denies any alcohol use at this time. Patient was transferred from [facility] [place] after CT showed inflammatory changes around t he pancreas consistent with pancreatitis as well as possible ileus. Patient on chronic medical treatments and reports recent initiation of diabetic medication. Review of Systems REVIEW OF SYSTEMS: CONSTITUTIONAL: Denies any fevers, chills, weight change. CARDIOVASCULAR: Denies any chest pain, palpitations high or low blood pressures RESPIRATORY: Denies any shortness of breath, hemoptysis or cough. GENITOURINARY: No dysuria or hematuria. MUSCULOSKELETAL: No weakness reported. SKIN: Denies any new rashes or lesions, jaundice or pallor. PSYCHIATRIC: Denies any depression or anxiety currently but he does have a history of such. NEUROLOGY: Denies headache, denies any new focal deficits. EARS/NOSE/THROAT: No recent hearing change, congestion, nasal discharge or sore throat. EYES: No pain in eyes, discharge or change in vision. GASTROINTESTINAL: As per HPI. Past Medical History Past Medical History: Cancer, Diabetes Mellitus, Hypertension Additional Past Medical History / Comment(s): prostate cancer History of Any Multi-Drug Resistant Organisms: None Reported Past Surgical History: Heart Catheterization, Orthopedic Surgery Additional Past Surgical History / Comment(s): shoulders, knee surgeries and then amputation of left great toe (6years) infection Past Anesthesia/Blood Transfusion Reactions: No Reported Reaction Past Psychological History: Anxiety, Depression Smoking Status: Never smoker Past Alcohol Use History: None Reported Past Drug Use History: None Reported - Past Family History Mother Family Medical History: Cancer Additional Family Medical History / Comment(s): ovarian and lung cancer Father Family Medical History: Cancer Medications and Allergies Home Medications Medication Instructions Recorded Confirmed Type ALPRAZolam [Xanax] 0.25 mg PO HS 04/28/20 04/28/20 History Aspirin [Adult Low Dose Aspirin EC] 81 mg PO DAILY 04/28/20 04/28/20 History Enalapril Maleate [Vasotec] 5 mg PO BID 04/28/20 04/28/20 History Latanoprost/Pf [Latanoprost 0.005% 1 drop BOTH EYES HS 04/28/20 04/28/20 History Eye Drop] Sertraline HCl [Zoloft] 100 mg BID 04/28/20 04/28/20 History Simvastatin 40 mg DAILY 04/28/20 04/28/20 History atenoloL [Atenolol] 25 mg PO DAILY 04/28/20 04/28/20 History glipiZIDE XL [Glucotrol Xl] 5 mg PO DAILY 04/28/20 04/28/20 History metFORMIN HCL ER [Glucophage Xr] 500 mg PO AC-BID 04/28/20 04/28/20 History Allergies Allergy/AdvReac Type Severity Reaction Status Date / Time No Known Allergies Allergy Verified 04/28/20 07:13 Physical Exam Vitals: Vital Signs Temp Pulse Resp BP Pulse Ox 04/29/20 07:00 98.6 F 71 18 112/66 92 L 04/29/20 03:00 97.8 F 88 121/59 97 04/28/20 22:41 16 04/28/20 19:06 96.7 F L 71 149/65 94 L 04/28/20 14:31 97.8 F 67 15 127/67 94 L Intake and Output 04/28/20 04/29/20 04/29/20 22:59 06:59 14:59 Other: Voiding Method Toilet On physical examination, patient appears comfortable in no apparent distress. HEAD: Normocephalic, atraumatic. EYES: No scleral icterus. No conjunctival injection. MOUTH: No lesions, tongue midline. NECK: Trachea midline, no gross abnormalities. CHEST: Clear to auscultation with no wheezing or rhonchi appreciated. HEART: S1-S2 appreciated. ABDOMEN: Soft, obese and tender to palpation. Bowel sounds are positive. No organomegaly. No guarding or rigidity. EXTREMITIES: No rashes noted, or pallor or jaundice. SKIN: No rashes, no jaundice. NEUROLOGIC: Alert and oriented x3. No focal deficits. Results CBC & Chem 7: 04/30/20 05:32 04/29/20 05:23 Labs: Abnormal Lab Results - Last 24 Hours (Table) 04/28/20 04/28/20 04/28/20 Range/Units 16:19 16:52 21:05 WBC (3.8-10.6) k/uL Neutrophils # (1.3-7.7) k/uL Lymphocytes # (1.0-4.8) k/uL Monocytes # (0-1.0) k/uL Chloride 109 H (98-107) mmol/L Carbon Dioxide (21.6-31.8) mmol/L BUN 34 H (9-20) mg/dL Est GFR (CKD-EPI)NonAf (60.0-200.0) BUN/Creatinine Ratio (12.00-20.00) Ratio Glucose 178 H (74-99) mg/dL POC Glucose (mg/dL) 162 H 151 H (75-99) mg/dL Calcium (8.7-10.3) mg/dL Amylase 515 H* (30-110) U/L Lipase 2563 H (23-300) U/L 04/29/20 04/29/20 04/29/20 Range/Units 05:23 05:23 06:43 WBC 26.2 H (3.8-10.6) k/uL Neutrophils # 23.2 H (1.3-7.7) k/uL Lymphocytes # 0.9 L (1.0-4.8) k/uL Monocytes # 1.6 H (0-1.0) k/uL Chloride 111 H (98-107) mmol/L Carbon Dioxide 19.0 L (21.6-31.8) mmol/L BUN 35.0 H (9-20) mg/dL Est GFR (CKD-EPI)NonAf 56.1 L (60.0-200.0) BUN/Creatinine Ratio 26.92 H (12.00-20.00) Ratio Glucose 170 H (74-99) mg/dL POC Glucose (mg/dL) 162 H (75-99) mg/dL Calcium 8.6 L (8.7-10.3) mg/dL Amylase (30-110) U/L Lipase 265 H (23-300) U/L 04/29/20 Range/Units 11:18 WBC (3.8-10.6) k/uL Neutrophils # (1.3-7.7) k/uL Lymphocytes # (1.0-4.8) k/uL Monocytes # (0-1.0) k/uL Chloride (98-107) mmol/L Carbon Dioxide (21.6-31.8) mmol/L BUN (9-20) mg/dL Est GFR (CKD-EPI)NonAf (60.0-200.0) BUN/Creatinine Ratio (12.00-20.00) Ratio Glucose (74-99) mg/dL POC Glucose (mg/dL) 136 H (75-99) mg/dL Calcium (8.7-10.3) mg/dL Amylase (30-110) U/L Lipase (23-300) U/L CT scan - abdomen: report reviewed (CT scan showing findings consistent with uncomplicated pancreatitis) Assessment and Plan (1) Acute pancreatitis Narrative/Plan: 70-year-old male presenting to the hospital with abdominal pain, he had CT findings of uncomplicated acute pancreatitis with associated elevation in his lipase at 2563. Other labs significant for amylase 515, total bilirubin 0.5, alkaline phosphatase 61, AST 19 and ALT 17, with a WBC 2.6, hemoglobin 13.3 and platelet count 223,000.. Currently the patient is receiving treatment for acute uncomplicated pancreatitis. This is his second episode. He denies any heavy alcohol use. Current Visit: Yes Status: Acute Code(s): K85.90 - ACUTE PANCREATITIS WITHO UT NECROSIS OR INFECTION, UNSP SNOMED Code(s): 975271370 (2) Hepatic steatosis Current Visit: Yes Status: Acute Code(s): K76.0 - FATTY (CHANGE OF) LIVER, NOT ELSEWHERE CLASSIFIED SNOMED Code(s): 671138603 (3) Abdominal pain Current Visit: Yes Status: Acute Code(s): R10.9 - UNSPECIFIED ABDOMINAL PAIN SNOMED Code(s): 16868844 Plan: Supportive care N.p.o. except for ice chips Continue IV fluid hydration, increase to LR 200 cc/h Ultrasound of the abdomen ordered Laboratory evaluation including triglycerides, CHRISTINA and IgG4 ordered Surgical service following Thank you for allowing us to participate in the care of the patient
[2020-04-30] MEDS: FAMOTIDINE 20 MG TAB PO SCH ×2 (08:25→22:07)
[2020-04-30] MEDS: atenoloL 25 MG TAB PO SCH (08:25)
[2020-04-30] MEDS: ATORVASTATIN 20 MG TAB PO SCH (08:25)
[2020-04-30] MEDS: ASPIRIN 81 MG PO SCH (08:25)
[2020-04-30] MEDS: PIPERACILLIN-TAZOBACTAM 3.375 GM in SODIUM CHLORIDE 0.9% 100 ML IVPB SCH ×2 (08:25→16:03)
[2020-04-30] MEDS: HEPARIN SODIUM,PORCINE 5,000 UNIT/ML 1 ML VIAL SQ SCH ×2 (08:25→22:07)
[2020-04-30] MEDS: glipiZIDE 5 MG TAB PO SCH (08:25)
[2020-04-30] MEDS: lisinopriL 20 MG TAB PO SCH (08:25)
[2020-04-30] MEDS: SERTRALINE 100 MG TAB PO SCH ×2 (08:25→22:08)
[2020-04-30 10:13] LABS: Anion Gap 7.8 mmol/L (4.00-12.00); BUN/Creat Ratio 27.69 Ratio (12.00-20.00); Calcium 8.2 mg/dL (8.7-10.3); Carbon Dioxide 24.2 mmol/L (21.6-31.8); Non-African American GFR(CKD) 56.1 (60.0-200.0)
[2020-04-30 11:48] LABS: IgG Subclass 3 26.7 mg/dL (11.0-85.0); IgG Subclass 4 12.6 mg/dL (3.0-175.0)
--- NOTE | 2020-04-30 12:40 | P.PN ---
Subjective Progress Note Date: 04/30/20 Principal diagnosis: Pancreatitis He was seen sitting up in bed. He states his abdominal pain has improved some. He has been tolerating ice chips through the night. He denies any nausea or vomiting or any further diarrhea. Lipase 62, triglycerides 134, CHRISTINA pending, IgG4 normal. Liver enzymes pending. Objective - Vital Signs Vital signs: Vital Signs Temp 97.0 F L 04/30/20 07:00 Pulse 74 04/30/20 07:00 Resp 18 04/30/20 07:00 BP 147/54 04/30/20 07:00 Pulse Ox 99 04/30/20 07:00 Intake & Output 04/29/20 04/30/20 04/30/20 18:59 06:59 18:59 Intake Total 500 Balance 500 Intake: Intake, IV Titration 400 Amount Lactated Ringers 1,000 ml 300 @ 150 mls/hr IV .Q6H40M [facility] Rx#:[id number] Piperacillin-Tazobactam 3 100 .375 gm In Sodium Chloride 0.9% 100 ml @ 25 mls/hr IVPB Q8HR [facility] Rx# :[id number] Oral 100 Other: Voiding Method Toilet Toilet # Voids 3 2 - Exam General appearance: The patient is alert, oriented, in no acute distress. Obese. HET: Head is normocephalic and atraumatic. Conjunctiva pink. Sclera anicteric. Neck: Supple without lymphadenopathy. Abdomen: Soft, epigastric and left upper quadrant tenderness, nondistended with bowel sounds. No guarding or rigidity. Extremities: Normal skin color and turgor. No pedal edema Neurological: No focal deficits. Alert and oriented 3. - Labs CBC & Chem 7: 04/30/20 05:32 04/30/20 05:32 Labs: Abnormal Lab Results - Last 24 Hours (Table) 04/29/20 04/30/20 04/30/20 Range/Units 20:24 05:32 05:32 WBC 17.7 H (3.8-10.6) k/uL RBC 4.06 L (4.30-5.90) m/uL Hgb 12.1 L (13.0-17.5) gm/dL Hct 37.9 L (39.0-53.0) % Neutrophils # 15.4 H (1.3-7.7) k/uL BUN (9.0-27.0) mg/dL Est GFR (CKD-EPI)NonAf (60.0-200.0) BUN/Creatinine Ratio (12.00-20.00) Ratio POC Glucose (mg/dL) 108 H (75-99) mg/dL Calcium (8.7-10.3) mg/dL Lipase (14-60) U/L IgG1 384.0 L (405.0-1011.0) mg/dL 04/30/20 04/30/20 Range/Units 05:32 06:46 WBC (3.8-10.6) k/uL RBC (4.30-5.90) m/uL Hgb (13.0-17.5) gm/dL Hct (39.0-53.0) % Neutrophils # (1.3-7.7) k/uL BUN 36.0 H (9.0-27.0) mg/dL Est GFR (CKD-EPI)NonAf 56.1 L (60.0-200.0) BUN/Creatinine Ratio 27.69 H (12.00-20.00) Ratio POC Glucose (mg/dL) 100 H (75-99) mg/dL Calcium 8.2 L (8.7-10.3) mg/dL Lipase 62 H (14-60) U/L IgG1 (405.0-1011.0) mg/dL Assessment and Plan (1) Acute pancreatitis Narrative/Plan: 70-year-old male presenting to the hospital with abdominal pain, he had CT findings of uncomplicated acute pancreatitis with associated elevation in his lipase at 2563. Other labs significant for amylase 515, total bilirubin 0.5, alkaline phosphatase 61, AST 19 and ALT 17, with a WBC 2.6, hemoglobin 13.3 and platelet count 223,000.. Currently the patient is receiving treatment for acute uncomplicated pancreatitis. This is his second episode. He denies any heavy alcohol use. Triglycerides are normal, CHRISTINA pending and IgG4 normal. Abdominal ultrasound shows findings may represent hepatic steatosis, liver may be enlarged . Borderline common bile duct measurement, 0.8 cm. Current Visit: Yes Status: Acute Code(s): K85.90 - ACUTE PANCREATITIS WITHOUT NECROSIS OR INFECTION, UNSP SNOMED Code(s): 448634313 (2) Abdominal pain Current Visit: Yes Status: Acute Code(s): R10.9 - UNSPECIFIED ABDOMINAL PAIN SNOMED Code(s): 35622527 (3) Hepatic steatosis Current Visit: Yes Status: Acute Code(s): K76.0 - FATTY (CHANGE OF) LIVER, NOT ELSEWHERE CLASSIFIED SNOMED Code(s): 572591481 Plan: Supportive care Advance to clear liquid diet Continue IV fluid hydration at 150 ml/hr Ultrasound of the abdomen ordered and reviewed Laboratory evaluation including triglycerides, CHRISTINA and IgG4 ordered Surgical service following Outpatient follow up Thank you for allowing us to participate in the care of the patient The impression and plan of care has been dictated as directed. I performed a history and examination of this patient, discussed the same with the dictator. I agree with the dictator's note ,documented as a scribe. Any additional findings or plans will be noted.
[2020-04-30 14:22] LABS: Albumin 3.5 g/dL (3.80-4.90); Total Bilirubin 0.4 mg/dL (0.2-1.2); Total Protein 5.4 g/dL (6.2-8.2)
--- NOTE | 2020-04-30 14:48 | P.PN ---
Subjective Progress Note Date: 04/30/20 CHIEF COMPLAINT: Abdominal pain HISTORY OF PRESENT ILLNESS: Patient is being followed for his acute pancr eatitis. Patient reports some improvement in his abdominal pain since admission. However, he is still having epigastric pain that radiates down into the left side. He was currently on ice chips and diet has been advanced to a clear liquid diet per GI service. He denies any nausea or vomiting. Afebrile. WBC 17.7 lipase 62 LFTs normal triglyceride 134 Abdominal ultrasound findings may represent hepatic steatosis, liver may be enlarged. Borderline common bile duct measurement. PHYSICAL EXAM: VITAL SIGNS: Reviewed GENERAL: Well-developed in no acute distress. HEENT: No sclera icterus. Extraocular movements grossly intact. Moist buccal mucosa. Head is atraumatic, normocephalic. Hears conversational speech. No nasal drainage. NECK: Supple without lymphadenopathy. CHEST: Non-labored respirations and equal bilateral excursions. CARDIOVASCULAR: Regular rate with regular rhythm. Palpable 2+ radial pulses. ABDOMEN: Soft. Nondistended. Epigastric and right upper quadrant tenderness with palpation MUSCULOSKELETAL: No clubbing or cyanosis. NEUROLOGIC: No focal or lateralizing signs. Cranial nerves II through XII grossly intact. PSYCH: Appropriate affect. Alert and oriented to person, place and time. SKIN: Well perfused. Good skin turgor. ASSESSMENT: 1. Acute pancreatitis 2. Possible ileus secondary to pancreatitis 3. Diabetes mellitus type 2 4. Essential hypertension 5. History of prostate cancer 6. General anxiety and depression PLAN: -We'll repeat computed tomography scan of the abdomen and pelvis with IV contrast only -Continue antibiotics. White count trending down -Continue IV fluids -GI prophylaxis Pepcid and DVT prophylaxis subcu heparin Physician Cotton Baler note has been reviewed by physician. Signing provider agrees with the documented findings, assessment, and plan of care. Objective - Vital Signs Vital signs: Vital Signs Temp 97.0 F L 04/30/20 07:00 Pulse 74 04/30/20 07:00 Resp 18 04/30/20 07:00 BP 147/54 04/30/20 07:00 Pulse Ox 99 04/30/20 07:00 Intake & Output 04/29/20 04/30/20 04/30/20 18:59 06:59 18:59 Intake Total 500 Balance 500 Intake: Intake, IV Titration 400 Amount Lactated Ringers 1,000 ml 300 @ 150 mls/hr IV .Q6H40M [facility] Rx#:[id number] Piperacillin-Tazobactam 3 100 .375 gm In Sodium Chloride 0.9% 100 ml @ 25 mls/hr IVPB Q8HR [facility] Rx# :[id number] Oral 100 Other: Voiding Method Toilet Toilet # Voids 3 2 - Labs CBC & Chem 7: 04/30/20 05:32 04/30/20 05:32 Labs: Abnormal Lab Results - Last 24 Hours (Table) 04/29/20 04/30/20 04/30/20 Range/Units 20:24 05:32 05:32 WBC 17.7 H (3.8-10.6) k/uL RBC 4.06 L (4.30-5.90) m/uL Hgb 12.1 L (13.0-17.5) gm/dL Hct 37.9 L (39.0-53.0) % Neutrophils # 15.4 H (1.3-7.7) k/uL BUN (9.0-27.0) mg/dL Est GFR (CKD-EPI)NonAf (60.0-200.0) BUN/Creatinine Ratio (12.00-20.00) Ratio POC Glucose (mg/dL) 108 H (75-99) mg/dL Calcium (8.7-10.3) mg/dL Total Protein (6.2-8.2) g/dL Albumin (3.80-4.90) g/dL Lipase (14-60) U/L IgG1 384.0 L (405.0-1011.0) mg/dL 04/30/20 04/30/20 04/30/20 Range/Units 05:32 06:46 09:29 WBC (3.8-10.6) k/uL RBC (4.30-5.90) m/uL Hgb (13.0-17.5) gm/dL Hct (39.0-53.0) % Neutrophils # (1.3-7.7) k/uL BUN 36.0 H (9.0-27.0) mg/dL Est GFR (CKD-EPI)NonAf 56.1 L (60.0-200.0) BUN/Creatinine Ratio 27.69 H (12.00-20.00) Ratio POC Glucose (mg/dL) 100 H (75-99) mg/dL Calcium 8.2 L (8.7-10.3) mg/dL Total Protein 5.4 L (6.2-8.2) g/dL Albumin 3.50 L (3.80-4.90) g/dL Lipase 62 H (14-60) U/L IgG1 (405.0-1011.0) mg/dL
--- NOTE | 2020-04-30 15:20 | CT ---
EXAMINATION TYPE: CT abdomen pelvis w con DATE OF EXAM: 04/30/2020 COMPARISON: CT abdomen and pelvis June 29, 2013 HISTORY: Upper Abdominal pain. CT DLP: 1458.6 mGycm, Automated Exposure Control for Dose Reduction was Utilized. CONTRAST: CT scan of the abdomen and pelvis is performed without oral but with IV Contrast, patient injected wi th 100 mL of Isovue 300. FINDINGS: LUNG BASES: Negative small to tiny left pleural effusion with associated compressive atelectasis. LIVER/GB: Liver is markedly low dense consistent with diffuse fatty infiltration dependent density in gallbladder consistent with small stones and/or sludge or possible vicarious excretion of contrast. Correlate clinically. Finding new from 2013 CT PANCREAS: Moderate to severe ill-defined fluid and fat stranding surrounding the mid to distal pancre as greatest distal body and tail level. Some areas of heterogeneous diminished enhancement towards th e tail are felt present. No well-formed fluid collection is seen. No pneumoperitoneum. No ductal dila tation. SPLEEN: No significant abnormality is seen. ADRENALS: No significant abnormality is seen. KIDNEYS: Tiny nonobstructing bilateral renal calculi. Symmetric cortical medullary uptake and excreti on with multiple scattered small simple appearing thin-walled cysts bilaterally. No hydronephrosis no wilfredo bilaterally. BOWEL: Normal-appearing appendix from the cecum. Diverticula throughout the left and sigmoid colon. N o CT evidence for acute diverticulitis. No suspicious small or large bowel dilatation. Additional occ asional scattered colonic diverticula. Few scattered air-fluid levels. PROSTATE/SEMINAL VESICLES: Prostate gland is surgically absent with bilateral pelvic surgical clips r edemonstrated. Small amount of free fluid in the pelvis on current study axial image 71. LYMPH NODES: No greater than 1cm abdominal or pelvic lymph nodes are appreciated. OSSEOUS STRUCTURES: Moderate multilevel disc space narrowing and vacuum disc phenomenon in the mid to lower lumbar spine. Facet arthropathy lower lumbar levels. OTHER: Moderate mixed plaque in aorta extends into branch vessels IMPRESSION: 1. CT findings consistent with a fairly severe acute pancreatitis as detailed above. Areas of necroti zing pancreatitis difficult to exclude due to heterogeneous diminished enhancement towards the tail o n background severe surrounding fluid. No well-formed fluid collection currently. No free air.
[2020-04-30] MEDS: HYDROcodone/APAP 10-325MG 1 EACH TAB PO PRN ×2 (16:02→22:06)
[2020-04-30] MEDS: ONDANSETRON 4 MG/2 ML VIAL IVP PRN (19:23)
--- NOTE | 2020-04-30 20:02 | P.PN ---
Subjective This is a pleasant 70 years old male with multiple medical problem, and was transferred from [facility] for acute pancreatitis. Patient denies history of ventral alcohol however he presents with epigastric abdominal pain and tenderness which is a still significantly present causing distress to the patient, no nausea vomiting but the patient is nothing by mouth. He has normal bowel movement but is passing flatus. Vital signs and labs are reviewed, he is hemodynamically stable. Labs showing trending down lipase from more than 20,000 down to 265 today. WBC is trending up to 26K. Creatinine is normal. 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 CT of the abdomen and pelvis showing possible gall bladder small stones versus sludge, acute pancreatitis which is severe and difficult to exclude necrotizing pancreatitis IgG subclass are negative except for IgG G1 which is low at 384, triglycerides is normal, and a is normal as well Lipase is down to 62, WBC is trending down to 17 Patient remains on normal saline at 150 mL per hour plus Zosyn. Surgery and GI team are on the case Review of systems CONSTITUTIONAL: No fever, no malaise, no fatigue. HEENT: No recent visual problems or hearing problems. Denied any sore throat. CARDIOVASCULAR: No orthopnea, PND, no palpitations, no syncope. PULMONARY: No shortness of breath, no cough, no hemoptysis. GASTROINTESTINAL: No diarrhea, no nausea, no vomiting,. Normoactive bowel sounds. NEUROLOGICAL: No headaches, no weakness, no numbness. HEMATOLOGICAL: Denies any bleeding or petechiae. Active Medications Generic Name Dose Route Start Last Admin Trade Name Freq PRN Reason Stop Dose Admin Hydrocodone Bitart/Acetaminophen 1 each 04/30/20 11:21 04/30/20 16:02 Hydrocodone/Apap 10-325mg 1 Each Tab PO 1 each Q6H PRN Administration Pain Alprazolam 0.25 mg 04/28/20 21:00 04/29/20 19:59 Alprazolam 0.25 Mg Tab PO 0.25 mg HS [facility] Administration Aspirin 81 mg 04/28/20 09:00 04/30/20 08:25 Aspirin 81 Mg PO 81 mg DAILY [facility] Administration Atenolol 25 mg 04/28/20 09:00 04/30/20 08:25 Atenolol 25 Mg Tab PO 25 mg DAILY [facility] Administration Atorvastatin Calcium 20 mg 04/28/20 09:00 04/30/20 08:25 Atorvastatin 20 Mg Tab PO 20 mg DAILY [facility] Administration Famotidine 20 mg 04/29/20 21:00 04/30/20 08:25 Famotidine 20 Mg Tab PO 20 mg Q12HR [facility] Administration Glipizide 5 mg 04/28/20 09:00 04/30/20 08:25 Glipizide 5 Mg Tab PO 5 mg DAILY [facility] Administration Heparin Sodium (Porcine) 5,000 unit 04/28/20 21:00 04/30/20 08:25 Heparin Sodium,Porcine 5,000 Unit/Ml 1 Ml Vial SQ 5,000 unit Q12HR [facility] Administration Hydromorphone HCl 2 mg 04/28/20 16:02 04/30/20 19:03 Hydromorphone 1 Mg/Ml 1 Ml Syringe IVP 2 mg Q4HR PRN Administration Severe Pain Lactated Ringer's 1,000 mls @ 150 mls/hr 04/29/20 14:30 04/30/20 16:03 Lactated Ringers IV 150 mls/hr .Q6H40M [facility] Administration Piperacillin Sod/Tazobactam 100 mls @ 25 mls/hr 04/29/20 16:00 04/30/20 16:03 Sod 3.375 gm/ Sodium Chloride IVPB 25 mls/hr Q8HR [facility] Administration Latanoprost 1 drops 04/28/20 21:00 04/29/20 22:42 Latanoprost 0.005% Ophth Drops 2.5 Ml Btl BOTH EYES Not Given HS [facility] Lisinopril 20 mg 04/28/20 09:00 04/30/20 08:25 Lisinopril 20 Mg Tab PO 20 mg DAILY [facility] Administration Ondansetron HCl 4 mg 04/28/20 04:17 04/30/20 19:23 Ondansetron 4 Mg/2 Ml Vial IVP 4 mg Q6HR PRN Administration Nausea And Vomiting Sertraline HCl 100 mg 04/28/20 09:00 04/30/20 08:25 Sertraline 100 Mg Tab PO 100 mg BID [facility] Administration Objective - Vital Signs Vital signs: Vital Signs Temp 97.4 F L 04/30/20 15:00 Pulse 76 04/30/20 15:00 Resp 18 04/30/20 15:00 BP 145/73 04/30/20 15:00 Pulse Ox 93 L 04/30/20 15:00 Intake & Output 04/29/20 04/30/20 04/30/20 18:59 06:59 18:59 Intake Total 500 Balance 500 Intake: Intake, IV Titration 400 Amount Lactated Ringers 1,000 ml 300 @ 150 mls/hr IV .Q6H40M [facility] Rx#:[id number] Piperacillin-Tazobactam 3 100 .375 gm In Sodium Chloride 0.9% 100 ml @ 25 mls/hr IVPB Q8HR [facility] Rx# :[id number] Oral 100 Other: Voiding Method Toilet Toilet # Voids 3 2 - Exam GENERAL: The patient is alert and oriented x3, not in any acute distress. Well developed, well nourished. HEENT: Pupils are round and equally reacting to light. EOMI. No scleral icterus. No conjunctival pallor. Normocephalic, atraumatic. No pharyngeal erythema. No thyromegaly. CARDIOVASCULAR: S1 and S2 present. No murmurs, rubs, or gallops. PULMONARY: Chest is clear to auscultation, no wheezing or crackles. -ABDOMEN: Soft, epigastric pain and tenderness with no rebound tenderness, nondistended, normoactive bowel sounds. No palpable organomegaly. MUSCULOSKELETAL: No joint swelling or deformity. EXTREMITIES: No cyanosis, clubbing, or pedal edema. NEUROLOGICAL: Gross neurological examination did not reveal any focal deficits. SKIN: No rashes. no petechiae. - Labs CBC & Chem 7: 04/30/20 05:32 04/30/20 05:32 Labs: Abnormal Lab Results - Last 24 Hours (Table) 04/29/20 04/30/20 04/30/20 Range/Units 20:24 05:32 05:32 WBC 17.7 H (3.8-10.6) k/uL RBC 4.06 L (4.30-5.90) m/uL Hgb 12.1 L (13.0-17.5) gm/dL Hct 37.9 L (39.0-53.0) % Neutrophils # 15.4 H (1.3-7.7) k/uL BUN (9.0-27.0) mg/dL Est GFR (CKD-EPI)NonAf (60.0-200.0) BUN/Creatinine Ratio (12.00-20.00) Ratio POC Glucose (mg/dL) 108 H (75-99) mg/dL Calcium (8.7-10.3) mg/dL Total Protein (6.2-8.2) g/dL Albumin (3.80-4.90) g/dL Lipase (14-60) U/L IgG1 384.0 L (405.0-1011.0) mg/dL 04/30/20 04/30/20 04/30/20 Range/Units 05:32 06:46 09:29 WBC (3.8-10.6) k/uL RBC (4.30-5.90) m/uL Hgb (13.0-17.5) gm/dL Hct (39.0-53.0) % Neutrophils # (1.3-7.7) k/uL BUN 36.0 H (9.0-27.0) mg/dL Est GFR (CKD-EPI)NonAf 56.1 L (60.0-200.0) BUN/Creatinine Ratio 27.69 H (12.00-20.00) Ratio POC Glucose (mg/dL) 100 H (75-99) mg/dL Calcium 8.2 L (8.7-10.3) mg/dL Total Protein 5.4 L (6.2-8.2) g/dL Albumin 3.50 L (3.80-4.90) g/dL Lipase 62 H (14-60) U/L IgG1 (405.0-1011.0) mg/dL Assessment and Plan Assessment: Acute pancreatitis Leukocytosis hepatic steatosis Acute kidney injury, resolved Hypertension Type 2 diabetes mellitus Dyslipidemia Anxiety with depression, 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 Continue with IV fluids, GI rest, pain medication. Surgery and GI team are consulted and they are following the patient closely, I agree with checking for CHRISTINA, IgG subclass and triglyceride level Labs and medication were reviewed.. Continue same treatment. Continue with symptomatic treatment. Resume home medication. Monitor lytes and vitals. DVT and GI prophylaxis. Further recommendationsas per clinical course of the patient DVT prophylaxis: Subcutaneous heparin GI Prophylaxis: Pepcid
[2020-04-30 20:32] LABS: Glucose,Whole Blood 123 mg/dL (75-99)
[2020-04-30] MEDS: ALPRAZolam 0.25 MG TAB PO SCH (22:08)
[2020-04-30] MEDS: LATANOPROST 0.005% OPHTH DROPS 2.5 ML BTL BOTH EYES SCH (22:08)
[2020-05-01] MEDS: PIPERACILLIN-TAZOBACTAM 3.375 GM in SODIUM CHLORIDE 0.9% 100 ML IVPB SCH ×3 (00:17→15:48)
[2020-05-01] MEDS: LACTATED RINGERS 1,000 ML IV SCH ×4 (00:19→20:19)
[2020-05-01] MEDS: HYDROmorphone 1 MG/ML 1 ML SYRINGE IVP PRN ×3 (01:13→17:44)
[2020-05-01] MEDS: HYDROcodone/APAP 10-325MG 1 EACH TAB PO PRN ×2 (06:25→15:47)
[2020-05-01 07:18] LABS: Glucose,Whole Blood 89 mg/dL (75-99)
[2020-05-01 08:07] LABS: Basophils % (A) 0 %; Eosinophils # (A) 0.1 k/uL (0-0.7); Eosinophils % (A) 1 %; HCT 37.5 % (39.0-53.0); HGB 12.3 gm/dL (13.0-17.5); Lymphocytes # (A) 0.6 k/uL (1.0-4.8); Lymphocytes % (A) 4 %; MCH 30.1 pg (25.0-35.0); MCHC 32.7 g/dL (31.0-37.0); MCV 91.9 fL (80.0-100.0); Mean Platelet Volume 6.9; Monocytes % (A) 7 %; Neutrophils # (A) 12.5 k/uL (1.3-7.7); Neutrophils % (A) 86 %; Platelet Count 235 k/uL (150-450); RBC 4.08 m/uL (4.30-5.90); RDW 12.7 % (11.5-15.5); WBC 14.6 k/uL (3.8-10.6)
[2020-05-01] MEDS: glipiZIDE 5 MG TAB PO SCH (09:24)
[2020-05-01] MEDS: HEPARIN SODIUM,PORCINE 5,000 UNIT/ML 1 ML VIAL SQ SCH ×2 (09:24→18:08)
[2020-05-01] MEDS: lisinopriL 20 MG TAB PO SCH (09:24)
[2020-05-01] MEDS: atenoloL 25 MG TAB PO SCH (09:24)
[2020-05-01] MEDS: FAMOTIDINE 20 MG TAB PO SCH ×2 (09:24→20:48)
[2020-05-01] MEDS: SERTRALINE 100 MG TAB PO SCH ×2 (09:24→20:48)
[2020-05-01] MEDS: ATORVASTATIN 20 MG TAB PO SCH (09:25)
[2020-05-01] MEDS: ASPIRIN 81 MG PO SCH (09:25)
[2020-05-01 10:47] LABS: African American GFR (CKD) 79.5 (60.0-200.0); Anion Gap 9.4 mmol/L (4.00-12.00); BUN/Creat Ratio 22.73 Ratio (12.00-20.00); Calcium 8.3 mg/dL (8.7-10.3); Carbon Dioxide 22.6 mmol/L (21.6-31.8); Non-African American GFR(CKD) 68.6 (60.0-200.0); Potassium 3.9 mmol/L (3.5-5.5)
[2020-05-01 11:52] LABS: Glucose,Whole Blood 96 mg/dL (75-99)
--- NOTE | 2020-05-01 12:57 | P.PN ---
Subjective Progress Note Date: 05/01/20 Principal diagnosis: Pancreatitis Was seen and examined at the bedside. He is sitting up stating that he still has pain, but feels like it has improved somewhat. He states he had clear liquids yesterday but then it made his pain worse so now he is nothing by mouth with ice chips. Surgery is on consult and the plan is for outpatient cholecystectomy. He denies any fever, nausea, or vomiting. He underwent a CT of the abdomen was consistent with a fairly severe acute pancreatitis as detailed above. Areas of necrotizing pancreatitis difficult to exclude due to heterogeneous diminished enhancement towards the tail on a background severe surrounding fluid. Liver is markedly low-density consistent with diffuse fatty infiltration dependent density in gallbladder consistent with small stones and/or sludge or possible vicarious excretion of contrast. Clean. Finding new from 2013 CT Objective - Vital Signs Vital signs: Vital Signs Temp 97.6 F 05/01/20 11:24 Pulse 58 L 05/01/20 11:24 Resp 20 05/01/20 11:24 BP 120/69 05/01/20 11:24 Pulse Ox 93 L 05/01/20 11:24 Intake & Output 04/30/20 05/01/20 05/01/20 18:59 06:59 18:59 Intake Total 500 240 Balance 500 240 Intake: Intake, IV Titration 400 Amount Lactated Ringers 1,000 ml 300 @ 150 mls/hr IV .Q6H40M [facility] Rx#:[id number] Piperacillin-Tazobactam 3 100 .375 gm In Sodium Chloride 0.9% 100 ml @ 25 mls/hr IVPB Q8HR [facility] Rx# :[id number] Oral 100 240 Other: Voiding Method Toilet Toilet # Voids 2 1 - Exam General appearance: The patient is alert, oriented, in no acute distress. Obese. HET: Head is normocephalic and atraumatic. Conjunctiva pink. Sclera anicteric. Neck: Supple without lymphadenopathy. Abdomen: Soft, epigastric and left upper quadrant tenderness, nondistended with bowel sounds. No guarding or rigidity. Extremities: Normal skin color and turgor. No pedal edema Neurological: No focal deficits. Alert and oriented 3. - Labs CBC & Chem 7: 05/01/20 07:55 05/01/20 07:55 Labs: Abnormal Lab Results - Last 24 Hours (Table) 04/30/20 04/30/20 05/01/20 Range/Units 09:29 20:30 07:55 WBC 14.6 H (3.8-10.6) k/uL RBC 4.08 L (4.30-5.90) m/uL Hgb 12.3 L (13.0-17.5) gm/dL Hct 37.5 L (39.0-53.0) % Neutrophils # 12.5 H (1.3-7.7) k/uL Lymphocytes # 0.6 L (1.0-4.8) k/uL BUN/Creatinine Ratio (12.00-20.00) Ratio Glucose (70-110) mg/dL POC Glucose (mg/dL) 123 H (75-99) mg/dL Calcium (8.7-10.3) mg/dL Total Protein 5.4 L (6.2-8.2) g/dL Albumin 3.50 L (3.80-4.90) g/dL 05/01/20 Range/Units 07:55 WBC (3.8-10.6) k/uL RBC (4.30-5.90) m/uL Hgb (13.0-17.5) gm/dL Hct (39.0-53.0) % Neutrophils # (1.3-7.7) k/uL Lymphocytes # (1.0-4.8) k/uL BUN/Creatinine Ratio 22.73 H (12.00-20.00) Ratio Glucose 136 H (70-110) mg/dL POC Glucose (mg/dL) (75-99) mg/dL Calcium 8.3 L (8.7-10.3) mg/dL Total Protein (6.2-8.2) g/dL Albumin (3.80-4.90) g/dL Assessment and Plan (1) Acute pancreatitis Narrative/Plan: 70-year-old male presenting to the hospital with abdominal pain, he had CT findings of uncomplicated acute pancreatitis with associated elevation in his lipase at 2563. Other labs significant for amylase 515, total bilirubin 0.5, alkaline phosphatase 61, AST 19 and ALT 17, with a WBC 2.6, hemoglobin 13.3 and platelet count 223,000.. Currently the patient is receiving treatment for acute uncomplicated pancreatitis. This is his second episode. He denies any heavy alcohol use. Triglycerides are normal, CHRISTINA pending and IgG4 normal. Abdominal ultrasound shows findings may represent hepatic steatosis, liver may be enlarged. Borderline common bile duct measurement, 0.8 cm. Current Visit: Yes Status: Acute Code(s): K85.90 - ACUTE PANCREATITIS WITHOUT NECROSIS OR INFECTION, UNSP SNOMED Code(s): 830813870 (2) Abdominal pain Current Visit: Yes Status: Acute Code(s): R10.9 - UNSPECIFIED ABDOMINAL PAIN SNOMED Code(s): 41003967 (3) Hepatic steatosis Current Visit: Yes Status: Acute Code(s): K76.0 - FATTY (CHANGE OF) LIVER, NOT ELSEWHERE CLASSIFIED SNOMED Code(s): 012562500 Plan: Supportive care Diet as tolerated Continue IV fluid hydration at 150 ml/hr Ultrasound of the abdomen ordered and reviewed Laboratory evaluation including triglycerides, CHRISTINA and IgG4 ordered Surgical service following Outpatient follow up Thank you for allowing us to participate in the care of the patient The impression and plan of care has been dictated as directed. I performed a history and examination of this patient, discussed the same with the dictator. I agree with the dictator's note ,documented as a scribe. Any additional findings or plans will be noted.
--- NOTE | 2020-05-01 13:16 | P.PN ---
<Marilu Weems - Last Filed: 05/01/20 13:07> Subjective Progress Note Date: 05/01/20 CHIEF COMPLAINT: Abdominal pain HISTORY OF PRESENT ILLNESS: Patient is being followed for his acute pancreatitis. Patient reports some improvement in his abdominal pain since admission. However, he is still having epigastric pain that radiates down into the left side. Patient did notice an increase in abdominal pain after eating his clear liquid diet. Afebrile. WBC 17.7 down to 14.6 Computed tomography scan of abdomen and pelvis show findings consistent with a fairly severe acute pancreatitis. Areas of necrotizing pancreatitis difficult to exclude. No well formed a fluid collection currently. No free air. Afebrile PHYSICAL EXAM: VITAL SIGNS: Reviewed GENERAL: Well-developed in no acute distress. HEENT: No sclera icterus. Extraocular movements grossly intact. Moist buccal mucosa. Head is atraumatic, normocephalic. Hears conversational speech. No nasal drainage. NECK: Supple without lymphadenopathy. CHEST: Non-labored respirations and equal bilateral excursions. CARDIOVASCULAR: Regular rate with regular rhythm. Palpable 2+ radial pulses. ABDOMEN: Soft. Nondistended. Epigastric and right upper quadrant tenderness with palpation MUSCULOSKELETAL: No clubbing or cyanosis. NEUROLOGIC: No focal or lateralizing signs. Cranial nerves II through XII grossly intact. PSYCH: Appropriate affect. Alert and oriented to person, place and time. SKIN: Well perfused. Good skin turgor. ASSESSMENT: 1. Severe Acute pancreatitis 2. Possible ileus secondary to pancreatitis 3. Diabetes mellitus type 2 4. Essential hypertension 5. History of prostate cancer 6. General anxiety and depression PLAN: -Due to severity of patient's pancreatitis he will be made nothing by mouth except for ice chips -Consult dietitian to start PPN -Continue antibiotics. White count trending down -Continue IV fluids -GI prophylaxis Pepcid and DVT prophylaxis subcu heparin Physician Hiv/Aids Care Nurse note has been reviewed by physician. Signing provider agrees with the documented findings, assessment, and plan of care. Objective - Vital Signs Vital signs: Vital Signs Temp 97.6 F 05/01/20 11:24 Pulse 58 L 05/01/20 11:24 Resp 20 05/01/20 11:24 BP 120/69 05/01/20 11:24 Pulse Ox 93 L 05/01/20 11:24 Intake & Output 04/30/20 05/01/20 05/01/20 18:59 06:59 18:59 Intake Total 500 340 Balance 500 340 Intake: Intake, IV Titration 400 100 Amount Lactated Ringers 1,000 ml 300 @ 150 mls/hr IV .Q6H40M [facility] Rx#:[id number] Piperacillin-Tazobactam 3 100 100 .375 gm In Sodium Chloride 0.9% 100 ml @ 25 mls/hr IVPB Q8HR [facility] Rx# :[id number] Oral 100 240 Other: Voiding Method Toilet Toilet # Voids 2 1 1 - Labs CBC & Chem 7: 05/01/20 07:55 05/01/20 07:55 Labs: Abnormal Lab Results - Last 24 Hours (Table) 04/30/20 04/30/20 05/01/20 Range/Units 09:29 20:30 07:55 WBC 14.6 H (3.8-10.6) k/uL RBC 4.08 L (4.30-5.90) m/uL Hgb 12.3 L (13.0-17.5) gm/dL Hct 37.5 L (39.0-53.0) % Neutrophils # 12.5 H (1.3-7.7) k/uL Lymphocytes # 0.6 L (1.0-4.8) k/uL BUN/Creatinine Ratio (12.00-20.00) Ratio Glucose (70-110) mg/dL POC Glucose (mg/dL) 123 H (75-99) mg/dL Calcium (8.7-10.3) mg/dL Total Protein 5.4 L (6.2-8.2) g/dL Albumin 3.50 L (3.80-4.90) g/dL 05/01/20 Range/Units 07:55 WBC (3.8-10.6) k/uL RBC (4.30-5.90) m/uL Hgb (13.0-17.5) gm/dL Hct (39.0-53.0) % Neutrophils # (1.3-7.7) k/uL Lymphocytes # (1.0-4.8) k/uL BUN/Creatinine Ratio 22.73 H (12.00-20.00) Ratio Glucose 136 H (70-110) mg/dL POC Glucose (mg/dL) (75-99) mg/dL Calcium 8.3 L (8.7-10.3) mg/dL Total Protein (6.2-8.2) g/dL Albumin (3.80-4.90) g/dL <Tereza Severino N - Last Filed: 05/01/20 19:17> Objective - Vital Signs Vital signs: Vital Signs Temp 97.6 F 05/01/20 11:24 Pulse 58 L 05/01/20 11:24 Resp 20 05/01/20 11:24 BP 120/69 05/01/20 11:24 Pulse Ox 93 L 05/01/20 11:24 Intake & Output 05/01/20 05/01/20 05/02/20 06:59 18:59 06:59 Intake Total 340 Balance 340 Weight 88 kg Intake: Intake, IV Titration 100 Amount Piperacillin-Tazobactam 3 100 .375 gm In Sodium Chloride 0.9% 100 ml @ 25 mls/hr IVPB Q8HR [facility] Rx# :[id number] Oral 240 Other: Voiding Method Toilet # Voids 1 1 - Labs CBC & Chem 7: 05/01/20 07:55 05/01/20 07:55 Labs: Abnormal Lab Results - Last 24 Hours (Table) 04/30/20 05/01/20 05/01/20 Range/Units 20:30 07:55 07:55 WBC 14.6 H (3.8-10.6) k/uL RBC 4.08 L (4.30-5.90) m/uL Hgb 12.3 L (13.0-17.5) gm/dL Hct 37.5 L (39.0-53.0) % Neutrophils # 12.5 H (1.3-7.7) k/uL Lymphocytes # 0.6 L (1.0-4.8) k/uL BUN/Creatinine Ratio (12.00-20.00) Ratio Glucose (70-110) mg/dL POC Glucose (mg/dL) 123 H (75-99) mg/dL Calcium (8.7-10.3) mg/dL Triglycerides (0.0-149.0) mg/dL Procalcitonin 0.97 H (0.02-0.09) ng/mL 05/01/20 05/01/20 05/01/20 Range/Units 07:55 07:55 17:02 WBC (3.8-10.6) k/uL RBC (4.30-5.90) m/uL Hgb (13.0-17.5) gm/dL Hct (39.0-53.0) % Neutrophils # (1.3-7.7) k/uL Lymphocytes # (1.0-4.8) k/uL BUN/Creatinine Ratio 22.73 H (12.00-20.00) Ratio Glucose 136 H (70-110) mg/dL POC Glucose (mg/dL) 68 L (75-99) mg/dL Calcium 8.3 L (8.7-10.3) mg/dL Triglycerides 151.0 H (0.0-149.0) mg/dL Procalcitonin (0.02-0.09) ng/mL
--- NOTE | 2020-05-01 13:36 | P.PN ---
Subjective This is a pleasant 70 years old male with multiple medical problem, and was transferred from [facility] for acute pancreatitis. Patient denies history of ventral alcohol however he presents with epigastric abdominal pain and tenderness which is a still significantly present causing distress to the patient, no nausea vomiting but the patient is nothing by mouth. He has normal bowel movement but is passing flatus. Vital signs and labs are reviewed, he is hemodynamically stable. Labs showing trending down lipase from more than 20,000 down to 265 today. WBC is trending up to 26K. Creatinine is normal. Surgery and GI team were consulted Gallbladder ultrasound by surgery team showing no cholelithiasis with hepatic steatosis Patient remains on IV fluids at 100 mL per hour as well as Zosyn and by surgery team however the suspicion of infection is low, we will check a pro-calcitonin 04/30/2020 Circus Agent complaining of from epigastric abdominal pain and tenderness, he was started on liquid diet and is tolerating that well however he still have significant pain, [place] has been added besides Dilaudid. CT of the abdomen and pelvis showing possible gall bladder small stones versus sludge, acute pancreatitis which is severe and difficult to exclude necrotizing pancreatitis IgG subclass are negative except for IgG G1 which is low at 384, triglycerides is normal, and a is normal as well Lipase is down to 62, WBC is trending down to 17 Patient remains on normal saline at 150 mL per hour plus Zosyn. Surgery and GI team are on the case 05/01/2020 Patient feels abdominal pain is improving although he still have significant p ain and tenderness. He could not tolerate liquid diet, instructed to drink tea only this morning. WBCs trending down, pro-calcitonin is elevated at 0.97, computed tomography scan of the abdomen from yesterday showing severe pancreatitis with necrosis cannot be ruled out, possible gallbladder sludge GI and surgery team on the case He remains on normal saline at 1 50 mL/h Review of systems CONSTITUTIONAL: No fever, no malaise, no fatigue. HEENT: No recent visual problems or hearing problems. Denied any sore throat. CARDIOVASCULAR: No orthopnea, PND, no palpitations, no syncope. PULMONARY: No shortness of breath, no cough, no hemoptysis. GASTROINTESTINAL: No diarrhea, no nausea, no vomiting,. Normoactive bowel sounds. NEUROLOGICAL: No headaches, no weakness, no numbness. HEMATOLOGICAL: Denies any bleeding or petechiae. Active Medications Generic Name Dose Route Start Last Admin Trade Name Freq PRN Reason Stop Dose Admin Hydrocodone Bitart/Acetaminophen 1 each 04/30/20 11:21 04/30/20 16:02 Hydrocodone/Apap 10-325mg 1 Each Tab PO 1 each Q6H PRN Administration Pain Alprazolam 0.25 mg 04/28/20 21:00 04/29/20 19:59 Alprazolam 0.25 Mg Tab PO 0.25 mg HS [facility]J Administration Aspirin 81 mg 04/28/20 09:00 04/30/20 08:25 Aspirin 81 Mg PO 81 mg DAILY [facility]J Administration Atenolol 25 mg 04/28/20 09:00 04/30/20 08:25 Atenolol 25 Mg Tab PO 25 mg DAILY [facility]J Administration Atorvastatin Calcium 20 mg 04/28/20 09:00 04/30/20 08:25 Atorvastatin 20 Mg Tab PO 20 mg DAILY [facility]J Administration Famotidine 20 mg 04/29/20 21:00 04/30/20 08:25 Famotidine 20 Mg Tab PO 20 mg Q12HR [facility] Administration Glipizide 5 mg 04/28/20 09:00 04/30/20 08:25 Glipizide 5 Mg Tab PO 5 mg DAILY CJ Administration Heparin Sodium (Porcine) 5,000 unit 04/28/20 21:00 04/30/20 08:25 Heparin Sodium,Porcine 5,000 Unit/Ml 1 Ml Vial SQ 5,000 unit Q12HR [facility]J Administration Hydromorphone HCl 2 mg 04/28/20 16:02 04/30/20 19:03 Hydromorphone 1 Mg/Ml 1 Ml Syringe IVP 2 mg Q4HR PRN Administration Severe Pain Lactated Ringer's 1,000 mls @ 150 mls/hr 04/29/20 14:30 04/30/20 16:03 Lactated Ringers IV 150 mls/hr .Q6H40M [facility] Administration Piperacillin Sod/Tazobactam 100 mls @ 25 mls/hr 04/29/20 16:00 04/30/20 16:03 Sod 3.375 gm/ Sodium Chloride IVPB 25 mls/hr Q8HR [facility] Administration Latanoprost 1 drops 04/28/20 21:00 04/29/20 22:42 Latanoprost 0.005% Ophth Drops 2.5 Ml Btl BOTH EYES Not Given HS CJ Lisinopril 20 mg 04/28/20 09:00 04/30/20 08:25 Lisinopril 20 Mg Tab PO 20 mg DAILY [facility]J Administration Ondansetron HCl 4 mg 04/28/20 04:17 04/30/20 19:23 Ondansetron 4 Mg/2 Ml Vial IVP 4 mg Q6HR PRN Administration Nausea And Vomiting Sertraline HCl 100 mg 04/28/20 09:00 04/30/20 08:25 Sertraline 100 Mg Tab PO 100 mg BID CJ Administration Objective - Vital Signs Vital signs: Vital Signs Temp 97.6 F 05/01/20 11:24 Pulse 58 L 05/01/20 11:24 Resp 20 05/01/20 11:24 BP 120/69 05/01/20 11:24 Pulse Ox 93 L 05/01/20 11:24 Intake & Output 04/30/20 05/01/20 05/01/20 18:59 06:59 18:59 Intake Total 500 340 Balance 500 340 Intake: Intake, IV Titration 400 100 Amount Lactated Ringers 1,000 ml 300 @ 150 mls/hr IV .Q6H40M [facility] Rx#:[id number] Piperacillin-Tazobactam 3 100 100 .375 gm In Sodium Chloride 0.9% 100 ml @ 25 mls/hr IVPB Q8HR [facility] Rx# :[id number] Oral 100 240 Other: Voiding Method Toilet Toilet # Voids 2 1 1 - Exam GENERAL: The patient is alert and oriented x3, not in any acute distress. Well developed, well nourished. HEENT: Pupils are round and equally reacting to light. EOMI. No scleral icterus. No conjunctival pallor. Normocephalic, atraumatic. No pharyngeal erythema. No thyromegaly. CARDIOVASCULAR: S1 and S2 present. No murmurs, rubs, or gallops. PULMONARY: Chest is clear to auscultation, no wheezing or crackles. -ABDOMEN: Soft, epigastric pain and tenderness with no rebound tenderness, nondistended, normoactive bowel sounds. No palpable organomegaly. MUSCULOSKELETAL: No joint swelling or deformity. EXTREMITIES: No cyanosis, clubbing, or pedal edema. NEUROLOGICAL: Gross neurological examination did not reveal any focal deficits. SKIN: No rashes. no petechiae. - Labs CBC & Chem 7: 05/01/20 07:55 05/01/20 07:55 Labs: Abnormal Lab Results - Last 24 Hours (Table) 04/30/20 04/30/20 05/01/20 Range/Units 09:29 20:30 07:55 WBC (3.8-10.6) k/uL RBC (4.30-5.90) m/uL Hgb (13.0-17.5) gm/dL Hct (39.0-53.0) % Neutrophils # (1.3-7.7) k/uL Lymphocytes # (1.0-4.8) k/uL BUN/Creatinine Ratio (12.00-20.00) Ratio Glucose (70-110) mg/dL POC Glucose (mg/dL) 123 H (75-99) mg/dL Calcium (8.7-10.3) mg/dL Total Protein 5.4 L (6.2-8.2) g/dL Albumin 3.50 L (3.80-4.90) g/dL Procalcitonin 0.97 H (0.02-0.09) ng/mL 05/01/20 05/01/20 Range/Units 07:55 07:55 WBC 14.6 H (3.8-10.6) k/uL RBC 4.08 L (4.30-5.90) m/uL Hgb 12.3 L (13.0-17.5) gm/dL Hct 37.5 L (39.0-53.0) % Neutrophils # 12.5 H (1.3-7.7) k/uL Lymphocytes # 0.6 L (1.0-4.8) k/uL BUN/Creatinine Ratio 22.73 H (12.00-20.00) Ratio Glucose 136 H (70-110) mg/dL POC Glucose (mg/dL) (75-99) mg/dL Calcium 8.3 L (8.7-10.3) mg/dL Total Protein (6.2-8.2) g/dL Albumin (3.80-4.90) g/dL Procalcitonin (0.02-0.09) ng/mL Assessment and Plan Assessment: Acute pancreatitis Leukocytosis hepatic steatosis Acute kidney injury, resolved Hypertension Type 2 diabetes mellitus Dyslipidemia Anxiety with depression, 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 Co ntinue with IV fluids, GI rest, pain medication. Surgery and GI team are consulted and they are following the patient closely, I agree with checking for CHRISTINA, IgG subclass and triglyceride level Labs and medication were reviewed.. Continue same treatment. Continue with symptomatic treatment. Resume home medication. Monitor lytes and vitals. DVT and GI prophylaxis. Further recommendationsas per clinical course of the patient DVT prophylaxis: Subcutaneous heparin GI Prophylaxis: Pepcid
[2020-05-01 15:57] LABS: INR 1.1 (<1.2)
[2020-05-01 16:39] LABS: Magnesium 1.8 mg/dL (1.5-2.4); Phosphorus 2.4 mg/dL (2.4-5.1)
[2020-05-01 17:01] VITALS: BMI 26.3
[2020-05-01 17:04] LABS: Glucose,Whole Blood 68 mg/dL (75-99)
[2020-05-01 17:28] LABS: Glucose,Whole Blood 77 mg/dL (75-99)
[2020-05-01] MEDS: FAT EMULSION 20% 250 ML in EMPTY BAG 1 BAG IV SCH (17:38)
[2020-05-01] MEDS: DEXTROSE 5%-0.9% NACL 1,000 ML IV SCH (17:45)
[2020-05-01] MEDS ORDERED: MVI, ADULT NO.4 WITH VIT K 10 ML, TRACE (CONC-1ML/DOSE) 1 ML in AMINO ACID 4.25%-D10W+L... IV SCH ×3 (18:00)
[2020-05-01] MEDS: ACETAMINOPHEN IV (For NPO) 1,000 MG in EMPTY BAG 1 BAG IVPB SCH (20:46)
[2020-05-01] MEDS: LATANOPROST 0.005% OPHTH DROPS 2.5 ML BTL BOTH EYES SCH (20:48)
[2020-05-01] MEDS: ALPRAZolam 0.25 MG TAB PO SCH (20:48)
[2020-05-01 23:41] LABS: Glucose,Whole Blood 122 mg/dL (75-99)
[2020-05-02] MEDS: HYDROmorphone 1 MG/ML 1 ML SYRINGE IVP PRN ×5 (00:19→23:32)
[2020-05-02] MEDS: PIPERACILLIN-TAZOBACTAM 3.375 GM in SODIUM CHLORIDE 0.9% 100 ML IVPB SCH ×4 (00:46→23:53)
[2020-05-02] MEDS: HYDROcodone/APAP 10-325MG 1 EACH TAB PO PRN ×2 (02:18→20:18)
[2020-05-02] MEDS: DEXTROSE 5%-0.9% NACL 1,000 ML IV SCH ×2 (02:19→13:55)
[2020-05-02] MEDS: LACTATED RINGERS 1,000 ML IV SCH ×4 (03:43→23:46)
[2020-05-02] MEDS: ACETAMINOPHEN IV (For NPO) 1,000 MG in EMPTY BAG 1 BAG IVPB SCH ×3 (05:06→13:54)
[2020-05-02 05:52] LABS: Glucose,Whole Blood 118 mg/dL (75-99)
[2020-05-02] MEDS: HEPARIN SODIUM,PORCINE 5,000 UNIT/ML 1 ML VIAL SQ SCH ×2 (06:35→20:17)
[2020-05-02] MEDS: ASPIRIN 81 MG PO SCH (06:35)
[2020-05-02] MEDS: SERTRALINE 100 MG TAB PO SCH ×3 (08:12→20:17)
[2020-05-02] MEDS: lisinopriL 20 MG TAB PO SCH (08:12)
[2020-05-02] MEDS: FAMOTIDINE 20 MG TAB PO SCH ×2 (08:12→20:18)
[2020-05-02] MEDS: glipiZIDE 5 MG TAB PO SCH (08:12)
[2020-05-02] MEDS: atenoloL 25 MG TAB PO SCH (08:12)
[2020-05-02] MEDS: ATORVASTATIN 20 MG TAB PO SCH (08:12)
[2020-05-02 09:26] LABS: African American GFR (CKD) 79.5 (60.0-200.0); Albumin 3.2 g/dL (3.80-4.90); Albumin/Globulin Ratio 1.78 (1.60-3.17); Anion Gap 9.1 mmol/L (4.00-12.00); Calcium 8.2 mg/dL (8.7-10.3); Carbon Dioxide 24.9 mmol/L (21.6-31.8); Globulin 1.8 g/dL (1.6-3.3); Magnesium 1.8 mg/dL (1.5-2.4); Non-African American GFR(CKD) 68.6 (60.0-200.0); Total Bilirubin 0.3 mg/dL (0.3-1.2)
[2020-05-02] MEDS ORDERED: 1: MVI, ADULT NO.4 WITH VIT K 10 ML, TRACE (CONC-1ML/DOSE) 1 ML in AMINO ACID 4.25%-D10W IV SCH ×3 (10:00)
--- NOTE | 2020-05-02 11:23 | P.PN ---
Subjective Progress Note Date: 05/02/20 CHIEF COMPLAINT: Abdominal pain HISTORY OF PRESENT ILLNESS: Patient is being followed for his acute pancr eatitis. Patient reports some improvement in his abdominal pain since admission. However, he is still having epigastric pain that radiates down into the left side. Patient is currently nothing by mouth except for ice chips and medications. Afebrile. LFTs are normal. PHYSICAL EXAM: VITAL SIGNS: Reviewed GENERAL: Well-developed in no acute distress. HEENT: No sclera icterus. Extraocular movements grossly intact. Moist buccal mucosa. Head is atraumatic, normocephalic. Hears conversational speech. No nasal drainage. NECK: Supple without lymphadenopathy. CHEST: Non-labored respirations and equal bilateral excursions. CARDIOVASCULAR: Regular rate with regular rhythm. Palpable 2+ radial pulses. ABDOMEN: Soft. Nondistended. Epigastric and right upper quadrant tenderness with palpation MUSCULOSKELETAL: No clubbing or cyanosis. NEUROLOGIC: No focal or lateralizing signs. Cranial nerves II through XII grossly intact. PSYCH: Appropriate affect. Alert and oriented to person, place and time. SKIN: Well perfused. Good skin turgor. ASSESSMENT: 1. Severe Acute pancreatitis 2. Possible ileus secondary to pancreatitis 3. Diabetes mellitus type 2 4. Essential hypertension 5. History of prostate cancer 6. General anxiety and depression PLAN: -Due to severity of patient's pancreatitis he will be made nothing by mouth except for ice chips and medications -Patient scheduled for PICC line placement today and to start TPN -Continue antibiotics -Continue IV fluids -GI prophylaxis Pepcid and DVT prophylaxis subcu heparin Physician Pen Ruler Operator note has been reviewed by physician. Signing provider agrees with the documented findings, assessment, and plan of care. Objective - Vital Signs Vital signs: Vital Signs Temp 97.4 F L 05/02/20 05:00 Pulse 63 05/02/20 05:00 Resp 18 05/02/20 05:00 BP 142/82 05/02/20 05:00 Pulse Ox 93 L 05/02/20 05:00 Intake & Output 05/01/20 05/02/20 05/02/20 18:59 06:59 18:59 Intake Total 340 Balance 340 Weight 88 kg 88 kg Intake: Intake, IV Titration 100 Amount Piperacillin-Tazobactam 3 100 .375 gm In Sodium Chloride 0.9% 100 ml @ 25 mls/hr IVPB Q8HR [facility] Rx# :[id number] Oral 240 Other: # Voids 1 0 - Labs CBC & Chem 7: 05/01/20 07:55 05/02/20 03:59 Labs: Abnormal Lab Results - Last 24 Hours (Table) 05/01/20 05/01/20 05/01/20 Range/Units 07:55 07:55 17:02 Glucose (70-110) mg/dL POC Glucose (mg/dL) 68 L (75-99) mg/dL Calcium (8.7-10.3) mg/dL Total Protein (6.2-8.2) g/dL Albumin (3.80-4.90) g/dL Triglycerides 151.0 H (0.0-149.0) mg/dL Procalcitonin 0.97 H (0.02-0.09) ng/mL 05/01/20 05/02/20 05/02/20 Range/Units 23:39 03:59 05:51 Glucose 129 H (70-110) mg/dL POC Glucose (mg/dL) 122 H 118 H (75-99) mg/dL Calcium 8.2 L (8.7-10.3) mg/dL Total Protein 5.0 L (6.2-8.2) g/dL Albumin 3.20 L (3.80-4.90) g/dL Triglycerides (0.0-149.0) mg/dL Procalcitonin (0.02-0.09) ng/mL
[2020-05-02 11:44] LABS: Glucose,Whole Blood 125 mg/dL (75-99)
--- NOTE | 2020-05-02 13:22 | P.PN ---
Subjective Progress Note Date: 05/02/20 Principal diagnosis: Pancreatitis Was seen and examined at the bedside. He is sitting up stating that he still has pain, but feels like it has improved somewhat. He used to be nothing by mouth with ice chips. Surgery is on consult and the plan is for outpatient cholecystectomy. He denies any fever, nausea, or vomiting. Surgery has ordered PICC line for TPN. Patient continues to remain on Zosyn. Objective - Vital Signs Vital signs: Vital Signs Temp 97.4 F L 05/02/20 05:00 Pulse 63 05/02/20 05:00 Resp 18 05/02/20 05:00 BP 142/82 05/02/20 05:00 Pulse Ox 93 L 05/02/20 05:00 Intake & Output 05/01/20 05/02/20 05/02/20 18:59 06:59 18:59 Intake Total 340 Balance 340 Weight 88 kg 88 kg Intake: Intake, IV Titration 100 Amount Piperacillin-Tazobactam 3 100 .375 gm In Sodium Chloride 0.9% 100 ml @ 25 mls/hr IVPB Q8HR [facility] Rx# :[id number] Oral 240 Other: # Voids 1 0 - Exam General appearance: The patient is alert, oriented, in no acute distress. Obese. HET: Head is normocephalic and atraumatic. Conjunctiva pink. Sclera anicteric. Neck: Supple without lymphadenopathy. Abdomen: Soft, epigastric and left upper quadrant tenderness, nondistended with bowel sounds. No guarding or rigidity. Extremities: Normal skin color and turgor. No pedal edema Neurological: No focal deficits. Alert and oriented 3. - Labs CBC & Chem 7: 05/01/20 07:55 05/02/20 03:59 Labs: Abnormal Lab Results - Last 24 Hours (Table) 05/01/20 05/01/20 05/01/20 Range/Units 07:55 07:55 17:02 Glucose (70-110) mg/dL POC Glucose (mg/dL) 68 L (75-99) mg/dL Calcium (8.7-10.3) mg/dL Total Protein (6.2-8.2) g/dL Albumin (3.80-4.90) g/dL Triglycerides 151.0 H (0.0-149.0) mg/dL Procalcitonin 0.97 H (0.02-0.09) ng/mL 05/01/20 05/02/20 05/02/20 Range/Units 23:39 03:59 05:51 Glucose 129 H (70-110) mg/dL POC Glucose (mg/dL) 122 H 118 H (75-99) mg/dL Calcium 8.2 L (8.7-10.3) mg/dL Total Protein 5.0 L (6.2-8.2) g/dL Albumin 3.20 L (3.80-4.90) g/dL Triglycerides (0.0-149.0) mg/dL Procalcitonin (0.02-0.09) ng/mL Assessment and Plan (1) Acute pancreatitis Narrative/Plan: 70-year-old male presenting to the hospital with abdominal pain, he had CT findings of uncomplicated acute pancreatitis with associated elevation in his lipase at 2563. Other labs significant for amylase 515, total bilirubin 0.5, alkaline phosphatase 61, AST 19 and ALT 17, with a WBC 2.6, hemoglobin 13.3 and platelet count 223,000.. Currently the patient is receiving treatment for acute uncomplicated pancreatitis. This is his second episode. He denies any heavy alcohol use. Triglycerides are normal, CHRISTINA pending and IgG4 normal. Abdominal ultrasound shows findings may represent hepatic steatosis, liver may be enlarged. Borderline common bile duct measurement, 0.8 cm. Current Visit: Yes Status: Acute Code(s): K85.90 - ACUTE PANCREATITIS WITHOUT NECROSIS OR INFECTION, UNSP SNOMED Code(s): 205951943 (2) Abdominal pain Current Visit: Yes Status: Acute Code(s): R10.9 - UNSPECIFIED ABDOMINAL PAIN SNOMED Code(s): 64777022 (3) Hepatic steatosis Current Visit: Yes Status: Acute Code(s): K76.0 - FATTY (CHANGE OF) LIVER, NOT ELSEWHERE CLASSIFIED SNOMED Code(s): 594823536 Plan: Supportive care Diet per surgery recommendations Continue IV fluid and pain medications as needed Ultrasound of the abdomen ordered and reviewed Laboratory evaluation including triglycerides, CHRSITINA and IgG4 ordered Surgical service following Outpatient follow up Thank you for allowing us to participate in the care of the patient on the we will be on standby at this time. The impression and plan of care has been dictated as directed. I performed a history and examination of this patient, discussed the same with the dictator. I agree with the dictator's note ,documented as a scribe. Any additional findings or plans will be noted.
[2020-05-02] MEDS ORDERED: LIDOCAINE 1% INJ 10MG/ML (20 ML MDV) SQ ONE (14:30)
[2020-05-02] MEDS ORDERED: MVI, ADULT NO.4 WITH VIT K 10 ML, TRACE (CONC-1ML/DOSE) 1 ML in AMINO ACID 4.25%-D10W+L... IV SCH ×3 (15:15)
--- NOTE | 2020-05-02 15:17 | IR ---
EXAMINATION TYPE: IR cvc insert >=5 years DATE OF EXAM: 05/02/2020 COMPARISON: NONE CLINICAL HISTORY: Pancreatitis Needs long-term intravenous access for there be. PROCEDURE: Hand hygiene obtained with soap and water and alcohol-based hand rub. After informed consent, the skin overlying the left basilic vein was localized with ultrasound and no wilfredo to be compressible and patent. An ultrasound image was obtained and submitted on the patient's c matthews. The overlying skin was prepped and draped and Lidocaine was used for local anesthesia. A skin darryl was made with a scalpel. Access was gained to the vein under ultrasound guidance with a 21 gau OxiCool needle and a 0.018 inch wire was advanced. Access site was dilated with Peel-Away sheath and cath eter tailored to the appropriate length and advanced such that the distal tip is at the cavoatrial ju nction. Spot image was obtained verifying placement. Catheter was fixed to the skin and a sterile d ressing was placed following hemostasis. Catheter was aspirated and flushed with saline. Patient wa s discharged in stable condition without complication. Maximal barrier technique is utilized. Ultras ound image is documented on the chart. Ultrasound used with sterile technique. Fluoro time and fluoroscopic images submitted to document procedure: 15 intraoperative images documen t the procedure, 0.1 minutes fluoroscopy time IMPRESSION: STATUS POST ULTRASOUND AND FLUOROSCOPIC GUIDED PICC LINE PLACEMENT, READY FOR USE. THIS PROCEDURE WAS PERFORMED BY THE UNDERSIGNED.
[2020-05-02] MEDS: FAT EMULSION 20% 250 ML in EMPTY BAG 1 BAG IV SCH (16:16)
[2020-05-02 17:30] LABS: Glucose,Whole Blood 155 mg/dL (75-99)
[2020-05-02] MEDS: LATANOPROST 0.005% OPHTH DROPS 2.5 ML BTL BOTH EYES SCH (20:17)
[2020-05-02] MEDS: ALPRAZolam 0.25 MG TAB PO SCH (20:17)
[2020-05-02 23:04] LABS: Glucose,Whole Blood 225 mg/dL (75-99)
--- NOTE | 2020-05-03 00:12 | P.PN ---
Subjective This is a pleasant 70 years old male with multiple medical problem, and was transferred from [facility] for acute pancreatitis. Patient denies history of ventral alcohol however he presents with epigastric abdominal pain and tenderness which is a still significantly present causing distress to the patient, no nausea vomiting but the patient is nothing by mouth. He has normal bowel movement but is passing flatus. Vital signs and labs are reviewed, he is hemodynamically stable. Labs showing trending down lipase from more than 20,000 down to 265 today. WBC is trending up to 26K. Creatinine is normal. 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 CT of the abdomen and pelvis showing possible gall bladder small stones versus sludge, acute pancreatitis which is severe and difficult to exclude necrotizing pancreatitis IgG subclass are negative except for IgG G1 which is low at 384, triglycerides is normal, and a is normal as well Lipase is down to 62, WBC is trending down to 17 Patient remains on normal saline at 150 mL per hour plus Zosyn. Surgery and GI team are on the case 05/01/2020 Patient feels abdominal pain is improving although he still have significant p ain and tenderness. He could not tolerate liquid diet, instructed to drink tea only this morning. WBCs trending down, pro-calcitonin is elevated at 0.97, computed tomography scan of the abdomen from yesterday showing severe pancreatitis with necrosis cannot be ruled out, possible gallbladder sludge GI and surgery team on the case He remains on normal saline at 150 mL/h 05/02/2020 Patient is a pleasant 70 years old male who presents with severe pancreatitis, unknown origin, was associated with some possible necrotic changes and he needs Zosyn to cover possible infection Patient still have significant abdominal pain, is unable to the right liquid diet. No bowel movement folic acid, no nausea vomiting Liver enzymes and bilirubin are normal. Rest of CBC, BMP are unremarkable as well. TPN is recommended by surgery team and patient is planned to get PICC line today Habits on IV fluids at 40 mL per hour. With pain medication Review of systems CONSTITUTIONAL: No fever, no malaise, no fatigue. HEENT: No recent visual problems or hearing problems. Denied any sore throat. CARDIOVASCULAR: No orthopnea, PND, no palpitations, no syncope. PULMONARY: No shortness of breath, no cough, no hemoptysis. GASTROINTESTINAL: No diarrhea, no nausea, no vomiting,. Normoactive bowel sounds. NEUROLOGICAL: No headaches, no weakness, no numbness. HEMATOLOGICAL: Denies any bleeding or petechiae. Active Medications Generic Name Dose Route Start Last Admin Trade Name Freq PRN Reason Stop Dose Admin Hydrocodone Bitart/Acetaminophen 1 each 04/30/20 11:21 05/02/20 20:18 Hydrocodone/Apap 10-325mg 1 Each Tab PO 1 each Q6H PRN Administration Pain Alprazolam 0.25 mg 04/28/20 21:00 05/02/20 20:17 Alprazolam 0.25 Mg Tab PO 0.25 mg HS CJ Administration Aspirin 81 mg 04/28/20 09:00 05/02/20 06:35 Aspirin 81 Mg PO Not Given DAILY CJ Atenolol 25 mg 04/28/20 09:00 05/02/20 08:12 Atenolol 25 Mg Tab PO 25 mg DAILY CJ Administration Famotidine 20 mg 04/29/20 21:00 05/02/20 20:18 Famotidine 20 Mg Tab PO 20 mg Q12HR CJ Administration Heparin Sodium (Porcine) 5,000 unit 04/28/20 21:00 05/02/20 20:17 Heparin Sodium,Porcine 5,000 Unit/Ml 1 Ml Vial SQ 5,000 unit Q12HR CJ Administration Hydromorphone HCl 2 mg 04/28/20 16:02 05/02/20 23:32 Hydromorphone 1 Mg/Ml 1 Ml Syringe IVP 2 mg Q4HR PRN Administration Severe Pain Lactated Ringer's 1,000 mls @ 150 mls/hr 04/29/20 14:30 05/02/20 23:46 Lactated Ringers IV Not Given .Q6H40M CJ Piperacillin Sod/Tazobactam 100 mls @ 25 mls/hr 04/29/20 16:00 05/02/20 23:53 Sod 3.375 gm/ Sodium Chloride IVPB 25 mls/hr Q8HR CJ Administration Fat Emulsion Intravenous 250 250 mls @ 21 mls/hr 05/01/20 17:00 05/02/20 16:16 ml/ IV Solution IV 21 mls/hr DAILY@1700 CJ Administration Dextrose/Sodium Chloride 1,000 mls @ 100 mls/hr 05/01/20 17:15 05/02/20 13:55 Dextrose 5%-Ns Iv Soln IV 100 mls/hr .Q10H CJ Administration Parenteral Vitamin Supplement 1,011 mls @ 50 mls/hr 05/02/20 15:15 05/02/20 15:07 10 ml/ Chromium/Copper/ IV 05/03/20 11:28 50 mls/hr Manganese/Seleni/Zn 1 ml/ .[id number] CJ Administration Amino Ac/Electrol/Dextrose/ Calcium Protocol Parenteral Vitamin Supplement 1,011 mls @ 95 mls/hr 05/03/20 05:30 10 ml/ Chromium/Copper/ IV Manganese/Seleni/Zn 1 ml/ .BY DURATION [facility] Amino Ac/Electrol/Dextrose/ Calcium Amino Ac/Electrol/Dextrose/Calcium 1,000 mls @ 95 mls/hr 05/03/20 05:30 Clinimix E 4.25%-D10% Solution IV .BY DURATION [facility] Latanoprost 1 drops 04/28/20 21:00 05/02/20 20:17 Latanoprost 0.005% Ophth Drops 2.5 Ml Btl BOTH EYES 1 drops HS CJ Administration Lisinopril 20 mg 04/28/20 09:00 05/02/20 08:12 Lisinopril 20 Mg Tab PO 20 mg DAILY CJ Administration Ondansetron HCl 4 mg 04/28/20 04:17 04/30/20 19:23 Ondansetron 4 Mg/2 Ml Vial IVP 4 mg Q6HR PRN Administration Nausea And Vomiting Sertraline HCl 100 mg 04/28/20 09:00 05/02/20 20:17 Sertraline 100 Mg Tab PO 100 mg BID CJ Administration Sodium Chloride 10 ml 05/02/20 14:37 Sodium Chloride 0.9% Flush 10 Ml Syringe IV Q4HR PRN PICC Line Sodium Chloride 10 ml 05/09/20 09:00 Sodium Chloride 0.9% Flush 10 Ml Syringe IV WEEKLY CJ Sodium Chloride 20 ml 05/02/20 14:37 Sodium Chloride 0.9% Flush 10 Ml Syringe IV Q4HR PRN PICC Line Objective - Vital Signs Vital signs: Vital Signs Temp 97.7 F 05/02/20 19:20 Pulse 64 05/02/20 19:20 Resp 16 05/02/20 19:20 BP 138/70 05/02/20 19:20 Pulse Ox 93 L 05/02/20 19:20 Intake & Output 05/02/20 05/02/20 05/03/20 06:59 18:59 06:59 Weight 88 kg Other: # Voids 0 1 1 - Exam GENERAL: The patient is alert and oriented x3, not in any acute distress. Well developed, well nourished. HEENT: Pupils are round and equally reacting to light. EOMI. No scleral icterus. No conjunctival pallor. Normocephalic, atraumatic. No pharyngeal erythema. No thyromegaly. CARDIOVASCULAR: S1 and S2 present. No murmurs, rubs, or gallops. PULMONARY: Chest is clear to auscultation, no wheezing or crackles. -ABDOMEN: Soft, epigastric pain and tenderness with no rebound tenderness, nondistended, normoactive bowel sounds. No palpable organomegaly. MUSCULOSKELETAL: No joint swelling or deformity. EXTREMITIES: No cyanosis, clubbing, or pedal edema. NEUROLOGICAL: Gross neurological examination did not reveal any focal deficits. SKIN: No rashes. no petechiae. - Labs CBC & Chem 7: 05/01/20 07:55 05/02/20 03:59 Labs: Abnormal Lab Results - Last 24 Hours (Table) 05/02/20 05/02/20 05/02/20 Range/Units 03:59 05:51 11:42 Glucose 129 H (70-110) mg/dL POC Glucose (mg/dL) 118 H 125 H (75-99) mg/dL Calcium 8.2 L (8.7-10.3) mg/dL Total Protein 5.0 L (6.2-8.2) g/dL Albumin 3.20 L (3.80-4.90) g/dL 05/02/20 05/02/20 Range/Units 17:29 23:02 Glucose (70-110) mg/dL POC Glucose (mg/dL) 155 H 225 H (75-99) mg/dL Calcium (8.7-10.3) mg/dL Total Protein (6.2-8.2) g/dL Albumin (3.80-4.90) g/dL Assessment and Plan Assessment: Acute pancreatitis Leukocytosis hepatic steatosis Acute kidney injury, resolved Hypertension Type 2 diabetes mellitus Dyslipidemia Anxiety with depression, 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 Continue with IV fluids, GI rest, pain medication. Surgery and GI team are consulted and they are following the patient closely, I agree with checking for CHRISTINA, IgG subclass and triglyceride level Labs and medication were reviewed.. Continue same treatment. Continue with symptomatic treatment. Resume home medication. Monitor lytes and vitals. DVT and GI prophylaxis. Further recommendationsas per clinical course of the patient DVT prophylaxis: Subcutaneous heparin GI Prophylaxis: Pepcid
[2020-05-03] MEDS: DEXTROSE 5%-0.9% NACL 1,000 ML IV SCH ×2 (01:09→10:26)
[2020-05-03] MEDS: HYDROmorphone 1 MG/ML 1 ML SYRINGE IVP PRN ×2 (03:52→08:37)
[2020-05-03 05:08] LABS: Glucose,Whole Blood 246 mg/dL (75-99)
[2020-05-03] MEDS ORDERED: INSULIN ASPART (NovoLOG) 100 UNIT/ML VIAL SQ SCH (06:00)
[2020-05-03] MEDS: LACTATED RINGERS 1,000 ML IV SCH (06:11)
[2020-05-03] MEDS: HEPARIN SODIUM,PORCINE 5,000 UNIT/ML 1 ML VIAL SQ SCH ×2 (08:34→21:02)
[2020-05-03] MEDS: lisinopriL 20 MG TAB PO SCH (08:34)
[2020-05-03] MEDS: ASPIRIN 81 MG PO SCH (08:34)
[2020-05-03] MEDS: atenoloL 25 MG TAB PO SCH (08:34)
[2020-05-03] MEDS: FAMOTIDINE 20 MG TAB PO SCH (08:34)
[2020-05-03] MEDS: PIPERACILLIN-TAZOBACTAM 3.375 GM in SODIUM CHLORIDE 0.9% 100 ML IVPB SCH ×2 (08:35→17:53)
[2020-05-03] MEDS: SERTRALINE 100 MG TAB PO SCH ×3 (08:37→21:01)
[2020-05-03 09:11] LABS: Basophils % (A) 0 %; Eosinophils # (A) 0.3 k/uL (0-0.7); Eosinophils % (A) 2 %; HCT 38.2 % (39.0-53.0); HGB 11.9 gm/dL (13.0-17.5); Lymphocytes % (A) 7 %; MCH 29.1 pg (25.0-35.0); MCHC 31.2 g/dL (31.0-37.0); MCV 93.1 fL (80.0-100.0); Mean Platelet Volume 7.2; Monocytes # (A) 0.8 k/uL (0-1.0); Monocytes % (A) 6 %; Neutrophils # (A) 10.7 k/uL (1.3-7.7); Neutrophils % (A) 83 %; Platelet Count 278 k/uL (150-450); RDW 13.1 % (11.5-15.5); WBC 12.9 k/uL (3.8-10.6)
[2020-05-03] MEDS ORDERED: HYDROmorphone 1 MG/ML 1 ML SYRINGE IVP PRN (09:53)
[2020-05-03] MEDS: 1: MVI, ADULT NO.4 WITH VIT K 10 ML, TRACE (CONC-1ML/DOSE) 1 ML in AMINO ACID 4.25%-D10W IV SCH ×6 (10:26→17:13)
[2020-05-03] MEDS: DOCUSATE 100 MG CAP PO SCH ×2 (10:26→21:02)
[2020-05-03] MEDS: HYDROcodone/APAP 10-325MG 1 EACH TAB PO PRN ×2 (10:27→17:47)
[2020-05-03] MEDS ORDERED: INSULIN REGULAR 100 UNIT in SODIUM CHLORIDE 0.9% 100 ML IV SCH (11:30)
[2020-05-03 11:33] LABS: African American GFR (CKD) 89.2 (60.0-200.0); Anion Gap 8.5 mmol/L (4.00-12.00); Calcium 8.4 mg/dL (8.7-10.3); Carbon Dioxide 25.5 mmol/L (21.6-31.8); Magnesium 1.8 mg/dL (1.5-2.4); Phosphorus 2.5 mg/dL (2.4-5.1); Potassium 3.9 mmol/L (3.5-5.5)
[2020-05-03 11:40] LABS: Glucose,Whole Blood 582 mg/dL (75-99)
[2020-05-03 11:40] LABS: Glucose,Whole Blood 485 mg/dL (75-99)
[2020-05-03 11:47] LABS: Glucose,Whole Blood 405 mg/dL (75-99)
[2020-05-03] MEDS ORDERED: IOPAMIDOL CONTRAST (ORAL USE) VIAL PO PRN (12:03)
[2020-05-03 12:44] LABS: Glucose,Whole Blood 307 mg/dL (75-99)
[2020-05-03 12:48] LABS: Prothrombin Time 10.8 sec (9.0-12.0)
[2020-05-03 12:57] LABS: African American GFR (CKD) >90 (>60 ml/min/1.73 sqM); Amylase 31 U/L (30-110); Anion Gap 7 mmol/L; Blood Urea Nitrogen 20 mg/dL (9-20); Calcium 8.6 mg/dL (8.4-10.2); Carbon Dioxide 24 mmol/L (22-30); Chloride 107 mmol/L (98-107); Glucose 318 mg/dL (74-99); Lipase 129 U/L (23-300); Non-African American GFR(CKD) 88 (>60 ml/min/1.73 sqM); Potassium 3.9 mmol/L (3.5-5.1); Sodium 138 mmol/L (137-145)
--- NOTE | 2020-05-03 12:59 | XR ---
EXAMINATION TYPE: XR chest 1V portable DATE OF EXAM: 05/03/2020 CLINICAL HISTORY: sob wheezes. TECHNIQUE: Portable frontal view of the chest. COMPARISON: 06/29/2013 chest radiograph FINDINGS: Left PICC distal tip over the distal SVC. The cardiomediastinal silhouette is within normal limits for size. Pulmonary vasculature is normal. There is focal right infrahilar airspace opacity. No pleural effusion, or pneumothorax seen. The osseous structures are intact. IMPRESSION: Focal right infrahilar airspace opacity, most likely pneumonia.
[2020-05-03 13:03] LABS: Basophils % (A) 0 %; Eosinophils # (A) 0.2 k/uL (0-0.7); Eosinophils % (A) 2 %; HCT 39.6 % (39.0-53.0); HGB 12.1 gm/dL (13.0-17.5); Lymphocytes # (A) 0.7 k/uL (1.0-4.8); Lymphocytes % (A) 5 %; MCH 28.4 pg (25.0-35.0); MCHC 30.6 g/dL (31.0-37.0); MCV 92.8 fL (80.0-100.0); Monocytes # (A) 0.4 k/uL (0-1.0); Monocytes % (A) 3 %; Neutrophils # (A) 11.5 k/uL (1.3-7.7); Neutrophils % (A) 89 %; Platelet Count 289 k/uL (150-450); RBC 4.27 m/uL (4.30-5.90); RDW 13.2 % (11.5-15.5); WBC 12.9 k/uL (3.8-10.6)
[2020-05-03] MEDS: ONDANSETRON 4 MG/2 ML VIAL IVP PRN (13:08)
[2020-05-03 13:29] LABS: C Reactive Protein 288.2 mg/L (<10.0)
[2020-05-03 13:39] LABS: Glucose,Whole Blood 208 mg/dL (75-99)
[2020-05-03 14:24] LABS: Glucose,Whole Blood 140 mg/dL (75-99)
--- NOTE | 2020-05-03 14:26 | CT ---
EXAMINATION TYPE: CT angio chest DATE OF EXAM: 05/03/2020 COMPARISON: None HISTORY: SOB, wheezing, abd distention CT DLP: 1857.9 (CTA chest and CT abd pelvis) mGycm Automated exposure control for dose reduction was used. CONTRAST: Performed with IV Contrast, patient injected with 100 mL of Isovue 370. There are 3-D post processed images. There are mild bilateral pleural effusions. Heart size is normal. There is no pericardial effusion. T here is diffuse pulmonary emphysema. There is no evidence of a pulmonary mass. There is minimal subse gmental atelectasis left posterior lung base. There is minimal reticular density anterior right upper lobe adjacent to the pleura. This is consistent with scarring. There is no mediastinal adenopathy. There are no hilar masses. There are a few right-sided bronchial lymph nodes measuring up to 1 cm. Thoracic aorta shows no aneurysm or dissection. The ascending aorta measures 3.5 cm. There is normal contrast opacification of the pulmonary arteries. There are no filling defects. The thoracic vertebra show normal alignment. There is no compression fracture. Sternum is intact. There is fat stranding around the pancreas. IMPRESSION: Pleural effusions. No evidence of pulmonary embolism. Extensive fat stranding and edema around the pa ncreas.
--- NOTE | 2020-05-03 14:33 | CT ---
EXAMINATION TYPE: CT abdomen pelvis w con DATE OF EXAM: 05/03/2020 COMPARISON: 04/30/2020 HISTORY: SOB, wheezing, abd distention CT DLP: 1857.9 (CTA chest and CT abd pelvis) mGycm Automated exposure control for dose reduction was used. CONTRAST: Performed with IV Contrast, patient injected with 100 mL of Isovue 370. There are mild bilateral pleural effusions. Liver shows no focal defect. Gallbladder is dilated and m easures 5.5 cm. Spleen is intact. Stomach is intact. There is fat stranding around the body and tail of the pancreas. There is fluid in the anterior left side perirenal space. There is small hiatal santiago ia. There is no adrenal mass. Kidneys show satisfactory contrast opacification. There are multiple small bilateral renal cortical cysts measuring up to 1 cm. Delayed images show normal renal excretion. Uret ers are not dilated. There is no hydronephrosis. There is no retroperitoneal adenopathy. There is sma ll amount of fluid in the pelvis. There is no inguinal hernia. There are multiple surgical clips in t he pelvis. There are sigmoid diverticula without sign of diverticulitis. Lumbar spine is intact. There is narrowing of disc spaces. There is no compression fracture. Bony pel vis is intact. Hip joints are intact. IMPRESSION: Dilated gallbladder suggestive of gallbladder dysfunction or cholecystitis unchanged. Fluid and fat s tranding around the pancreas consistent with acute pancreatitis unchanged. There is mild abdominal as cites fluid accumulating in the pelvis slightly increased compared to old exam. Pleural fluid increas ed compared to recent exam. Sigmoid diverticulosis.
[2020-05-03 17:35] LABS: Glucose,Whole Blood 180 mg/dL (75-99)
[2020-05-03] MEDS: MAGNESIUM SULFATE-D5W PMX 1 GM in DEXTROSE/WATER 1 100ML.BAG IVPB SCH ×2 (17:47→19:25)
[2020-05-03] MEDS: INSULIN ASPART (NovoLOG) 100 UNIT/ML VIAL SQ SCH ×2 (17:47→21:02)
[2020-05-03] MEDS: SODIUM CHLORIDE 0.9% 1,000 ML IV SCH (17:49)
--- NOTE | 2020-05-03 20:05 | PN ---
PROGRESS NOTE DATE OF SERVICE: 05/03/2020 This is a 70-year-old gentleman admitted with acute severe pancreatitis also had abdominal distention. Patient is apparently on TPN. The patient also had some fluid overload. A chest CTA was ordered by me which was reviewed and showed pleural effusions and no evidence of pulmonary embolism. Extensive fat stranding and edema around the pancreas also visualized. Abdominal pelvis CAT scan was done which showed dilated gallbladder which is unchanged and fluid and stranding around the pancreas consistent severe acute pancreatitis and mild intraabdominal ascites also noted. PAST MEDICAL HISTORY: Reviewed. REVIEW OF SYSTEMS: CARDIOVASCULAR: No angina or palpitations. RESPIRATORY: As mentioned earlier. GI: As mentioned earlier. : No dysuria. NERVOUS SYSTEM: No numbness or weakness. ALLERGY/IMMUNOLOGY: No asthma or hayfever. CURRENT MEDICATIONS: Reviewed and include Rogers, Xanax, aspirin, Tenormin, Colace, Pepcid, heparin, Dilaudid, NovoLog, Zestril, Zofran, Protonix, Zosyn. PHYSICAL EXAMINATION: Patient is alert, oriented x3. Pulse is 70, blood pressure 140/77, respiration 20, temperature 97.2, pulse ox 96% on room air. HEENT: Conjunctivae normal. NECK: No jugular venous distention. RESPIRATORY: Breath sounds diminished at the bases. A few scattered rhonchi and crackles. HEART: S1 and S2, muffled. ABDOMEN: Soft, mild diffuse discomfort. Distended. EXTREMITIES: No edema, no swelling. NERVOUS: No focal deficits. LAB STUDIES: WBC 12.2, hemoglobin 12.1, glucose 307 and 180, C-reactive protein is 288.2. ASSESSMENT: 1. Acute severe pancreatitis with severe abdominal pain. 2. Hepatic steatosis. 3. Dilated gallbladder. 4. Acute renal failure. 5. Hypertension. 6. Mild bilateral pleural effusions. 7. Diabetes mellitus type 2. 8. Hyperlipidemia. 9. History of anxiety with depression. 10.Increased WBC. 11.Anemia. 12.History of diabetes mellitus. 13.History of prostate cancer. 14.History of anxiety, depression. 15.FULL CODE. RECOMMENDATIONS AND DISCUSSION: In this 70-year-old gentleman who presented with multiple complex medical issues, we will monitor the patient closely. Continue the current medications, continue symptomatic treatment. Stop the TPN. Discussed with Dr. Shah. Proton pump inhibitors and empiric antibiotics will changed to Merrem and cautious IV fluids. Prognosis guarded because of multiple complex medical issues. Further recommendations to follow. See orders for details. We will stop the Pepcid at this time. DVT prophylaxis. Incentive spirometry. The chest x-ray was reviewed and showed some pleural effusions. The prognosis is guarded. Further recommendations to follow. MMODL / IJN: [id number] /
[2020-05-03 20:48] LABS: Glucose,Whole Blood 219 mg/dL (75-99)
[2020-05-03] MEDS: LATANOPROST 0.005% OPHTH DROPS 2.5 ML BTL BOTH EYES SCH (21:01)
[2020-05-03] MEDS: ALPRAZolam 0.25 MG TAB PO SCH (21:01)
[2020-05-03] MEDS: PANTOPRAZOLE 40 MG/10 ML VIAL IVP SCH (21:01)
[2020-05-03] MEDS: MEROPENEM 2 GM in SODIUM CHLORIDE 0.9% 100 ML IVPB SCH (21:01)
[2020-05-03] MEDS: HYDROmorphone 0.5 MG/0.5 ML SYRINGE IVP PRN (21:02)
[2020-05-04] MEDS: HYDROcodone/APAP 10-325MG 1 EACH TAB PO PRN ×3 (01:43→16:01)
[2020-05-04] MEDS: MEROPENEM 2 GM in SODIUM CHLORIDE 0.9% 100 ML IVPB SCH ×3 (03:43→19:58)
[2020-05-04] MEDS: HYDROmorphone 0.5 MG/0.5 ML SYRINGE IVP PRN ×3 (03:46→13:53)
[2020-05-04 07:40] LABS: Glucose,Whole Blood 139 mg/dL (75-99)
[2020-05-04] MEDS: INSULIN ASPART (NovoLOG) 100 UNIT/ML VIAL SQ SCH ×4 (07:52→20:49)
[2020-05-04 07:57] LABS: Basophils # (A) 0.1 k/uL (0-0.2); Basophils % (A) 0 %; Eosinophils # (A) 0.3 k/uL (0-0.7); Eosinophils % (A) 2 %; HCT 36.5 % (39.0-53.0); HGB 11.9 gm/dL (13.0-17.5); Lymphocytes % (A) 8 %; MCH 29.8 pg (25.0-35.0); MCHC 32.5 g/dL (31.0-37.0); MCV 91.8 fL (80.0-100.0); Mean Platelet Volume 6.8; Monocytes # (A) 0.8 k/uL (0-1.0); Monocytes % (A) 7 %; Neutrophils # (A) 9.5 k/uL (1.3-7.7); Neutrophils % (A) 80 %; Platelet Count 288 k/uL (150-450); RBC 3.97 m/uL (4.30-5.90); WBC 11.8 k/uL (3.8-10.6)
[2020-05-04] MEDS: HEPARIN SODIUM,PORCINE 5,000 UNIT/ML 1 ML VIAL SQ SCH ×2 (08:35→20:49)
[2020-05-04] MEDS: ASPIRIN 81 MG PO SCH (08:35)
[2020-05-04] MEDS: PANTOPRAZOLE 40 MG/10 ML VIAL IVP SCH ×2 (08:35→20:50)
[2020-05-04] MEDS: DOCUSATE 100 MG CAP PO SCH ×2 (08:35→20:49)
[2020-05-04] MEDS: SERTRALINE 100 MG TAB PO SCH ×2 (08:36→20:49)
[2020-05-04] MEDS: lisinopriL 20 MG TAB PO SCH (08:36)
[2020-05-04] MEDS: atenoloL 25 MG TAB PO SCH (08:36)
--- NOTE | 2020-05-04 08:50 | P.PN ---
Subjective Progress Note Date: 05/03/20 Principal diagnosis: acute uncomplicated pancreatitis, abdominal pain Patient seen this morning, he is somewhat irate about continued symptoms. He does report improved abdominal pain. Extensive discussion with the patient regarding his disease process, treatment course with all of his questions answered to his satisfaction.he is passing flatus. Bowel movements today. Objective - Vital Signs Vital signs: Vital Signs Temp 97.6 F 05/03/20 08:41 Pulse 70 05/03/20 08:41 Resp 20 05/03/20 08:41 BP 145/77 05/03/20 08:41 Pulse Ox 96 05/03/20 08:41 Intake & Output 05/02/20 05/03/20 05/03/20 18:59 06:59 18:59 Intake Total 4.767 Balance 4.767 Weight 88 kg Intake: Intake, IV Titration 4.767 Amount Insulin Regular 100 unit 4.767 In Sodium Chloride 0.9% 100 ml @ Titrate IV .Q0M [facility] Rx#:[id number] Other: Voiding Method Toilet # Voids 1 0 - Exam On physical examination, patient appears comfortable in no apparent distress. HEAD: Normocephalic, atraumatic. EYES: No scleral icterus. No conjunctival injection. MOUTH: No lesions, tongue midline. NECK: Trachea midline, no gross abnormalities. ABDOMEN: Soft, obeseabdomen mildly tender to palpation. Bowel sounds are p ositive. No organomegaly. No guarding or rigidity. EXTREMITIES: No pedal edema. SKIN: No rashes, no jaundice. NEUROLOGIC: Alert and oriented x3. No focal deficits. - Labs CBC & Chem 7: 05/04/20 07:41 05/03/20 12:20 Labs: Abnormal Lab Results - Last 24 Hours (Table) 05/02/20 05/02/20 05/03/20 Range/Units 17:29 23:02 05:06 WBC (3.8-10.6) k/uL RBC (4.30-5.90) m/uL Hgb (13.0-17.5) gm/dL Hct (39.0-53.0) % Neutrophils # (1.3-7.7) k/uL Glucose (70-110) mg/dL POC Glucose (mg/dL) 155 H 225 H 246 H (75-99) mg/dL Calcium (8.7-10.3) mg/dL 05/03/20 05/03/20 05/03/20 Range/Units 08:14 08:14 11:13 WBC 12.9 H (3.8-10.6) k/uL RBC 4.10 L (4.30-5.90) m/uL Hgb 11.9 L (13.0-17.5) gm/dL Hct 38.2 L (39.0-53.0) % Neutrophils # 10.7 H (1.3-7.7) k/uL Glucose 184 H (70-110) mg/dL POC Glucose (mg/dL) 582 H (75-99) mg/dL Calcium 8.4 L (8.7-10.3) mg/dL 05/03/20 05/03/20 Range/Units 11:20 11:45 WBC (3.8-10.6) k/uL RBC (4.30-5.90) m/uL Hgb (13.0-17.5) gm/dL Hct (39.0-53.0) % Neutrophils # (1.3-7.7) k/uL Glucose (70-110) mg/dL POC Glucose (mg/dL) 485 H 405 H (75-99) mg/dL Calcium (8.7-10.3) mg/dL Assessment and Plan (1) Acute pancreatitis Narrative/Plan: 70-year-old male presenting to the hospital with abdominal pain, he had CT findings of uncomplicated acute pancreatitis with associated elevation in his lipase at 2563. Other labs significant for amylase 515, total bilirubin 0.5, alkaline phosphatase 61, AST 19 and ALT 17, with a WBC 2.6, hemoglobin 13.3 and platelet count 223,000.. Currently the patient is receiving treatment for acute uncomplicated pancreatitis. This is his second episode. He denies any heavy alcohol use. Current Visit: Yes Status: Acute Code(s): K85.90 - ACUTE PANCREATITIS WITHOUT NECROSIS OR INFECTION, UNSP SNOMED Code(s): 410425627 (2) Hepatic steatosis Current Visit: Yes Status: Acute Code(s): K76.0 - FATTY (CHANGE OF) LIVER, N OT ELSEWHERE CLASSIFIED SNOMED Code(s): 800001463 (3) Abdominal pain Current Visit: Yes Status: Acute Code(s): R10.9 - UNSPECIFIED ABDOMINAL PAIN SNOMED Code(s): 94287376 Plan: Supportive care Laboratory evaluation is not consistent with autoimmune pancreatitis Repeat computed tomography scan will be ordered in the setting of persistent symptoms to rule outcomplicating disease, however initial imaging and labs have been consistent with acute constipated pancreatitis If no acute finding on computed tomography scan patient encouraged to attempt oral intake, and start with liquids and advance as tolerated Continue monitor CBC, BMP, LFTs Surgical service following Thank you for allowing us to participate in the care of the patient
--- NOTE | 2020-05-04 10:22 | P.PN ---
Progress Note - Text Progress Note Date: 05/03/20 Patient states his pain is slightly improved. Overall he feels better. On exam vital signs are stable. Abdomen soft. There is some mild epigastric tenderness. Resolving pancreatic Rabun. Patient will continue receive supportive care.
--- NOTE | 2020-05-04 10:22 | P.PN ---
Progress Note - Text Progress Note Date: 05/04/20 The patient states he feels better today. On exam vital signs are stable. Abdomen soft. There is some tenderness in epigastric area. Resolving peritonitis. Patient will receive supportive care.
[2020-05-04] MEDS ORDERED: FUROSEMIDE 10 MG/ML 2 ML VIAL IV ONE (11:01)
[2020-05-04 11:29] LABS: Glucose,Whole Blood 258 mg/dL (75-99)
[2020-05-04] MEDS: SODIUM CHLORIDE 0.9% 1,000 ML IV SCH (13:53)
[2020-05-04 14:26] LABS: African American GFR (CKD) 89.2 (60.0-200.0); Anion Gap 8.9 mmol/L (4.00-12.00); Calcium 8.2 mg/dL (8.7-10.3); Carbon Dioxide 27.1 mmol/L (21.6-31.8); Phosphorus 2.8 mg/dL (2.4-5.1)
[2020-05-04 17:09] LABS: Glucose,Whole Blood 184 mg/dL (75-99)
[2020-05-04] MEDS: HYDROcodone/APAP 5-325MG 1 EACH TAB PO PRN (19:58)
--- NOTE | 2020-05-04 20:27 | P.PN ---
Subjective Progress Note Date: 05/04/20 Principal diagnosis: acute uncomplicated pancreatitis, abdominal pain Patient seen this morning and is reporting that he has tolerated advancement in his diet with liquids and to post-this morning. No nausea or vomiting. He reports a good bowel movement yesterday. Objective - Vital Signs Vital signs: Vital Signs Temp 97.5 F L 05/04/20 08:08 Pulse 69 05/04/20 08:08 Resp 18 05/04/20 08:08 BP 169/74 05/04/20 08:08 Pulse Ox 97 05/04/20 08:08 Intake & Output 05/03/20 05/04/20 05/04/20 18:59 06:59 18:59 Intake Total 1472.100 Balance 1472.100 Intake: Intake, IV Titration 972.100 Amount Dextrose 5%-0.9% NaCl 1, 600 000 ml @ 100 mls/hr IV . Q10H [facility] Rx#:[id number] Insulin Regular 100 unit 16.100 In Sodium Chloride 0.9% 100 ml @ Titrate IV .Q0M [facility] Rx#:[id number] Mvi, Adult No.4 with Vit 356 K 10 ml Trace (Conc-1Ml/ Dose) 1 ml In Amino Acid 4.25%-D10w+Lytes*E* 1,000 ml @ 95 mls/hr IV .BY DURATION [facility] Rx#: [id number] Oral 500 Other: Voiding Method Toilet # Voids 4 3 # Bowel Movements 1 - Exam On physical examination, patient appears comfortable in no apparent distress. HEAD: Normocephalic, atraumatic. EYES: No scleral icterus. No conjunctival injection. MOUTH: No lesions, tongue midline. NECK: Trachea midline, no gross abnormalities. ABDOMEN: Soft, obeseabdomen mildly tender to palpation. Bowel sounds are positive. No organomegaly. No guarding or rigidity. EXTREMITIES: No pedal edema. SKIN: No rashes, no jaundice. NEUROLOGIC: Alert and oriented x3. No focal deficits. - Labs CBC & Chem 7: 05/04/20 07:41 05/04/20 07:41 Labs: Abnormal Lab Results - Last 24 Hours (Table) 05/03/20 05/03/20 05/03/20 Range/Units 12:20 12:20 12:34 WBC 12.9 H (3.8-10.6) k/uL RBC 4.27 L (4.30-5.90) m/uL Hgb 12.1 L (13.0-17.5) gm/dL Hct (39.0-53.0) % MCHC 30.6 L (31.0-37.0) g/dL Neutrophils # 11.5 H (1.3-7.7) k/uL Lymphocytes # 0.7 L (1.0-4.8) k/uL Glucose 318 H (74-99) mg/dL POC Glucose (mg/dL) 307 H (75-99) mg/dL C-Reactive Protein 288.2 H (<10.0) mg/L 05/03/20 05/03/20 05/03/20 Range/Units 13:14 14:22 17:34 WBC (3.8-10.6) k/uL RBC (4.30-5.90) m/uL Hgb (13.0-17.5) gm/dL Hct (39.0-53.0) % MCHC (31.0-37.0) g/dL Neutrophils # (1.3-7.7) k/uL Lymphocytes # (1.0-4.8) k/uL Glucose (74-99) mg/dL POC Glucose (mg/dL) 208 H 140 H 180 H (75-99) mg/dL C-Reactive Protein (<10.0) mg/L 05/03/20 05/04/20 05/04/20 Range/Units 20:45 07:39 07:41 WBC 11.8 H (3.8-10.6) k/uL RBC 3.97 L (4.30-5.90) m/uL Hgb 11.9 L (13.0-17.5) gm/dL Hct 36.5 L (39.0-53.0) % MCHC (31.0-37.0) g/dL Neutrophils # 9.5 H (1.3-7.7) k/uL Lymphocytes # (1.0-4.8) k/uL Glucose (74-99) mg/dL POC Glucose (mg/dL) 219 H 139 H (75-99) mg/dL C-Reactive Protein (<10.0) mg/L 11/08/20 Range/Units 11:27 WBC (3.8-10.6) k/uL RBC (4.30-5.90) m/uL Hgb (13.0-17.5) gm/dL Hct (39.0-53.0) % MCHC (31.0-37.0) g/dL Neutrophils # (1.3-7.7) k/uL Lymphocytes # (1.0-4.8) k/uL Glucose (74-99) mg/dL POC Glucose (mg/dL) 258 H (75-99) mg/dL C-Reactive Protein (<10.0) mg/L Assessment and Plan (1) Acute pancreatitis Narrative/Plan: 70-year-old male presenting to the hospital with abdominal pain, he had CT findings of uncomplicated acute pancreatitis with associated elevation in his lipase at 2563. Other labs significant for amylase 515, total bilirubin 0.5, alkaline phosphatase 61, AST 19 and ALT 17, with a WBC 2.6, hemoglobin 13.3 and platelet count 223,000.. Currently the patient is receiving treatment for acute uncomplicated pancreatitis. This is his second episode. He denies any heavy alcohol use. Current Visit: Yes Status: Acute Code(s): K85.90 - ACUTE PANCREATITIS WITHOUT NECROSIS OR INFECTION, UNSP SNOMED Code(s): 013772214 (2) Hepatic steatosis Current Visit: Yes Status: Acute Code(s): K76.0 - FATTY (CHANGE OF) LIVER, NOT ELSEWHERE CLASSIFIED SNOMED Code(s): 760910844 (3) Abdominal pain Current Visit: Yes Status: Acute Code(s): R10.9 - UNSPECIFIED ABDOMINAL PAIN SNOMED Code(s): 89798233 Plan: Supportive care Laboratory evaluation is not consistent with autoimmune pancreatitis Repeat computed tomography scan with no evidence of severe complicated pancreatitis okay for low-fat diet as tolerated Continue monitor CBC, BMP, LFTs Surgical service following Thank you for allowing us to participate in the care of the patient
[2020-05-04 20:44] LABS: Glucose,Whole Blood 265 mg/dL (75-99)
[2020-05-04] MEDS: ALPRAZolam 0.25 MG TAB PO SCH (20:49)
[2020-05-04] MEDS: LATANOPROST 0.005% OPHTH DROPS 2.5 ML BTL BOTH EYES SCH (20:49)
--- NOTE | 2020-05-04 23:11 | PN ---
PROGRESS NOTE DATE OF SERVICE: 05/04/2020 This 70-year-old gentleman admitted with acute severe pancreatitis and abdominal distention. The patient is on TPN, which was stopped yesterday. The patient also had abdomen and pelvis CAT scan which showed dilated gallbladder suggestive of gallbladder dysfunction or cholecystitis and fluid and fat stranding around the pancreas consistent with acute pancreatitis and mild abdominal ascitic fluid was noted. The pleural fluid is slightly improved compared to the previous exam. A chest CT was also done to rule out the possibility of pulmonary embolism, showed only pleural effusions. Extensive fat stranding was noted. PAST MEDICAL HISTORY: Reviewed. REVIEW OF SYSTEMS: CARDIOVASCULAR SYSTEM: No angina. RESPIRATORY SYSTEM: As mentioned earlier. GI: As mentioned earlier. : No dysuria. NERVOUS SYSTEM: No numbness or weakness. CURRENT MEDICATIONS: Current medications are: [place] 10 mg q.6 p.r.n., Xanax 0.5 at bedtime, aspirin 81 mg daily, Tenormin 25 mg daily, Colace 100 mg, heparin, Dilaudid, NovoLog, Zestril, Zoloft, p.r.n. medication. Doses are reviewed. PHYSICAL EXAMINATION: The patient is alert and oriented x3. Pulse 64, blood pressure 137/68, respirations 18, temperature 97.8, pulse ox 97% on room air. HEENT: Conjunctivae normal. NECK: No jugular venous distention. CARDIOVASCULAR: S1, S2 muffled. RESPIRATORY: Breath sounds are diminished at the bases. Scattered rhonchi and crackles. ABDOMEN: Soft, obese, mild diffuse discomfort. No guarding. No mass palpable. LEGS: No edema, no swelling. NERVOUS SYSTEM: No focal deficits. LABS: WBC 11.8, hemoglobin 11.9, otherwise amylase and lipase is normal. ASSESSMENT: 1. Acute severe pancreatitis with severe abdominal pain. 2. Hepatic steatosis. 3. Dilated gallbladder, rule out cholecystitis. 4. Acute renal failure. 5. Possible right lower lobe pneumonia, atelectasis. 6. Hypertension. 7. Mild bilateral pleural effusion. 8. Diabetes mellitus type 2. 9. Hyperlipidemia. 10.History of anxiety with depression. 11.Increased WBC. 12.Anemia. 13.History of prostate cancer. 14.History of anxiety, depression. 15.FULL CODE. RECOMMENDATIONS AND DISCUSSION: I recommend to continue current medications, continue symptomatic treatment. Otherwise we will continue with proton pump inhibitors. Continue with empiric antibiotics. Follow with cultures. Amylase and lipase normalized. Increase ambulation. We will slowly increase the diet to low-fat, bland diet. Prognosis guarded. Further recommendations to follow. MMODL / IJN: [id number] /
[2020-05-05] MEDS: MEROPENEM 2 GM in SODIUM CHLORIDE 0.9% 100 ML IVPB SCH ×3 (03:33→20:33)
[2020-05-05] MEDS: HYDROcodone/APAP 5-325MG 1 EACH TAB PO PRN ×4 (03:33→18:13)
[2020-05-05 07:13] LABS: Basophils % (A) 0 %; Eosinophils # (A) 0.3 k/uL (0-0.7); Eosinophils % (A) 3 %; HGB 11.7 gm/dL (13.0-17.5); Lymphocytes # (A) 0.9 k/uL (1.0-4.8); Lymphocytes % (A) 8 %; MCH 29.7 pg (25.0-35.0); MCHC 33.3 g/dL (31.0-37.0); MCV 89.4 fL (80.0-100.0); Mean Platelet Volume 6.7; Monocytes # (A) 0.8 k/uL (0-1.0); Monocytes % (A) 7 %; Neutrophils # (A) 8.9 k/uL (1.3-7.7); Neutrophils % (A) 80 %; Platelet Count 311 k/uL (150-450); RBC 3.92 m/uL (4.30-5.90); RDW 12.9 % (11.5-15.5); WBC 11.2 k/uL (3.8-10.6)
[2020-05-05 07:13] LABS: Glucose,Whole Blood 199 mg/dL (75-99)
[2020-05-05] MEDS: PANTOPRAZOLE 40 MG/10 ML VIAL IVP SCH ×2 (07:29→20:32)
[2020-05-05] MEDS: INSULIN ASPART (NovoLOG) 100 UNIT/ML VIAL SQ SCH ×4 (07:29→20:32)
[2020-05-05] MEDS: atenoloL 25 MG TAB PO SCH (07:30)
[2020-05-05] MEDS: ASPIRIN 81 MG PO SCH (07:30)
[2020-05-05] MEDS: SERTRALINE 100 MG TAB PO SCH ×2 (07:30→20:33)
[2020-05-05] MEDS: lisinopriL 20 MG TAB PO SCH (07:30)
[2020-05-05] MEDS: DOCUSATE 100 MG CAP PO SCH ×2 (07:30→20:33)
[2020-05-05] MEDS: HEPARIN SODIUM,PORCINE 5,000 UNIT/ML 1 ML VIAL SQ SCH ×2 (07:30→20:32)
[2020-05-05] MEDS: SODIUM CHLORIDE 0.9% 1,000 ML IV SCH (07:31)
[2020-05-05 10:56] LABS: Glucose,Whole Blood 258 mg/dL (75-99)
[2020-05-05 11:05] LABS: African American GFR (CKD) 89.2 (60.0-200.0); Calcium 8.3 mg/dL (8.7-10.3); Magnesium 1.9 mg/dL (1.5-2.4); Phosphorus 2.7 mg/dL (2.4-5.1)
--- NOTE | 2020-05-05 12:43 | P.PN ---
Subjective Progress Note Date: 05/05/20 CHIEF COMPLAINT: Abdominal pain HISTORY OF PRESENT ILLNESS: Patient is being followed for his acute pancr eatitis. Patient still complaining of abdominal pain. His pain is more so on the left side of his abdomen. He is still requiring oral pain medications on a regular basis. He was started on a full liquid diet. He denies any nausea or vomiting. He is afebrile. WBC 11.2. Over the weekend patient had some pleural effusions noted on computed tomography scan of the chest. His IV fluids were discontinued and he was given a dose of Lasix per medicine service. Computed tomography scan of abdomen and pelvis dilated gallbladder suggestive of gallbladder dysfunction or cholecystitis unchanged. Fluid and fat stranding around the pancreas consistent with acute pancreatitis unchanged. There is mild abdominal ascites fluid accumulation in the pelvis slightly increased compared to old exam. Pleural fluid and increased compared to right recent exam. PHYSICAL EXAM: VITAL SIGNS: Reviewed GENERAL: Well-developed in no acute distress. HEENT: No sclera icterus. Extraocular movements grossly intact. Moist buccal mucosa. Head is atraumatic, normocephalic. Hears conversational speech. No nasal drainage. NECK: Supple without lymphadenopathy. CHEST: Non-labored respirations and equal bilateral excursions. CARDIOVASCULAR: Regular rate with regular rhythm. Palpable 2+ radial pulses. ABDOMEN: Soft. Nondistended. Tenderness with palpation of the epigastric area and left side of the abdomen MUSCULOSKELETAL: No clubbing or cyanosis. NEUROLOGIC: No focal or lateralizing signs. Cranial nerves II through XII grossly intact. PSYCH: Appropriate affect. Alert and oriented to person, place and time. SKIN: Well perfused. Good skin turgor. ASSESSMENT: 1. Severe Acute pancreatitis 2. Possible ileus secondary to pancreatitis 3. Cholecystitis 4. Diabetes mellitus type 2 5. Essential hypertension 6. History of prostate cancer 7. General anxiety and depression PLAN: -Recommend outpatient management of cholecystitis -Recommend cautious management of pancreatitis -Diet management per GI service -GI prophylaxis Pepcid and DVT prophylaxis subcu heparin Physician Head Up Operator Helper note has been reviewed by physician. Signing provider agrees with the documented findings, assessment, and plan of care. Objective - Vital Signs Vital signs: Vital Signs Temp 97.5 F L 05/05/20 11:13 Pulse 54 L 05/05/20 11:13 Resp 20 05/05/20 11:13 BP 167/80 05/05/20 11:13 Pulse Ox 97 05/05/20 11:13 Intake & Output 05/04/20 05/05/20 05/05/20 18:59 06:59 18:59 Intake Total 750 Balance 750 Weight 88 kg Intake: Intake, IV Titration 100 Amount Meropenem 2 gm In Sodium 100 Chloride 0.9% 100 ml @ 33 .3 mls/hr IVPB Q8H [facility] Rx #:[id number] Oral 650 Other: # Voids 5 - Labs CBC & Chem 7: 05/05/20 06:43 05/05/20 06:43 Labs: Abnormal Lab Results - Last 24 Hours (Table) 05/04/20 05/04/20 05/04/20 Range/Units 07:41 17:08 20:42 WBC (3.8-10.6) k/uL RBC (4.30-5.90) m/uL Hgb (13.0-17.5) gm/dL Hct (39.0-53.0) % Neutrophils # (1.3-7.7) k/uL Lymphocytes # (1.0-4.8) k/uL Glucose 159 H (70-110) mg/dL POC Glucose (mg/dL) 184 H 265 H (75-99) mg/dL Calcium 8.2 L (8.7-10.3) mg/dL 05/05/20 05/05/20 05/05/20 Range/Units 06:43 06:43 07:12 WBC 11.2 H (3.8-10.6) k/uL RBC 3.92 L (4.30-5.90) m/uL Hgb 11.7 L (13.0-17.5) gm/dL Hct 35.0 L (39.0-53.0) % Neutrophils # 8.9 H (1.3-7.7) k/uL Lymphocytes # 0.9 L (1.0-4.8) k/uL Glucose 212 H (70-110) mg/dL POC Glucose (mg/dL) 199 H (75-99) mg/dL Calcium 8.3 L (8.7-10.3) mg/dL 05/05/20 Range/Units 10:54 WBC (3.8-10.6) k/uL RBC (4.30-5.90) m/uL Hgb (13.0-17.5) gm/dL Hct (39.0-53.0) % Neutrophils # (1.3-7.7) k/uL Lymphocytes # (1.0-4.8) k/uL Glucose (70-110) mg/dL POC Glucose (mg/dL) 258 H (75-99) mg/dL Calcium (8.7-10.3) mg/dL Microbiology - Last 24 Hours (Table) 05/03/20 12:20 Blood Culture - Preliminary Blood No Growth after 24 hours
--- NOTE | 2020-05-05 14:35 | P.PN ---
Subjective Progress Note Date: 05/05/20 Principal diagnosis: Pancreatitis She was seen and examined sitting up at the bedside. He states his abdominal pain has improved significantly. He is tolerating a full liquid diet without any nausea or vomiting. He has remained afebrile. He is however still taking pain medications as needed. Objective - Vital Signs Vital signs: Vital Signs Temp 97.5 F L 05/05/20 11:13 Pulse 54 L 05/05/20 11:13 Resp 20 05/05/20 11:13 BP 167/80 05/05/20 11:13 Pulse Ox 97 05/05/20 11:13 Intake & Output 05/04/20 05/05/20 05/05/20 18:59 06:59 18:59 Intake Total 750 Balance 750 Weight 88 kg Intake: Intake, IV Titration 100 Amount Meropenem 2 gm In Sodium 100 Chloride 0.9% 100 ml @ 33 .3 mls/hr IVPB Q8H [facility] Rx #:[id number] Oral 650 Other: # Voids 5 - Exam General appearance: The patient is alert, oriented, in no acute distress. Obese. HET: Head is normocephalic and atraumatic. Conjunctiva pink. Sclera anicteric. Neck: Supple without lymphadenopathy. Abdomen: Soft, mild left upper quadrant tenderness, nondistended with bowel sounds. No guarding or rigidity. Extremities: Normal skin color and turgor. No pedal edema Neurological: No focal deficits. Alert and oriented 3. - Labs CBC & Chem 7: 05/05/20 06:43 05/05/20 06:43 Labs: Abnormal Lab Results - Last 24 Hours (Table) 05/04/20 05/04/20 05/04/20 Range/Units 07:41 17:08 20:42 WBC (3.8-10.6) k/uL RBC (4.30-5.90) m/uL Hgb (13.0-17.5) gm/dL Hct (39.0-53.0) % Neutrophils # (1.3-7.7) k/uL Lymphocytes # (1.0-4.8) k/uL Glucose 159 H (70-110) mg/dL POC Glucose (mg/dL) 184 H 265 H (75-99) mg/dL Calcium 8.2 L (8.7-10.3) mg/dL 05/05/20 05/05/20 05/05/20 Range/Units 06:43 06:43 07:12 WBC 11.2 H (3.8-10.6) k/uL RBC 3.92 L (4.30-5.90) m/uL Hgb 11.7 L (13.0-17.5) gm/dL Hct 35.0 L (39.0-53.0) % Neutrophils # 8.9 H (1.3-7.7) k/uL Lymphocytes # 0.9 L (1.0-4.8) k/uL Glucose 212 H (70-110) mg/dL POC Glucose (mg/dL) 199 H (75-99) mg/dL Calcium 8.3 L (8.7-10.3) mg/dL 05/05/20 Range/Units 10:54 WBC (3.8-10.6) k/uL RBC (4.30-5.90) m/uL Hgb (13.0-17.5) gm/dL Hct (39.0-53.0) % Neutrophils # (1.3-7.7) k/uL Lymphocytes # (1.0-4.8) k/uL Glucose (70-110) mg/dL POC Glucose (mg/dL) 258 H (75-99) mg/dL Calcium (8.7-10.3) mg/dL Microbiology - Last 24 Hours (Table) 05/03/20 12:20 Blood Culture - Preliminary Blood No Growth after 24 hours Assessment and Plan (1) Acute pancreatitis Narrative/Plan: 70-year-old male presenting to the hospital with abdominal pain, he had CT findings of uncomplicated acute pancreatitis with associated elevation in his lipase at 2563. Other labs significant for amylase 515, total bilirubin 0.5, alkaline phosphatase 61, AST 19 and ALT 17, with a WBC 2.6, hemoglobin 13.3 and platelet count 223,000.. Currently the patient is receiving treatment for acute uncomplicated pancreatitis. This is his second episode. He denies any heavy alcohol use. Triglycerides are normal, CHRISTINA pending and IgG4 normal. Abdominal ultrasound shows findings may represent hepatic steatosis, liver may be enlarged. Borderline common bile duct measurement, 0.8 cm. Current Visit: Yes Status: Acute Code(s): K85.90 - ACUTE PANCREATITIS WITHO UT NECROSIS OR INFECTION, UNSP SNOMED Code(s): 264803717 (2) Abdominal pain Current Visit: Yes Status: Acute Code(s): R10.9 - UNSPECIFIED ABDOMINAL PAIN SNOMED Code(s): 34677098 (3) Hepatic steatosis Current Visit: Yes Status: Acute Code(s): K76.0 - FATTY (CHANGE OF) LIVER, NOT ELSEWHERE CLASSIFIED SNOMED Code(s): 383489400 Plan: Supportive care Continue Full liquid diet Continue IV fluid and pain medications as needed Ultrasound of the abdomen ordered and reviewed Laboratory evaluation including triglycerides, CHRISTINA and IgG4 ordered Surgical service following Outpatient follow up Patient may be discharged home once pain is stable Thank you for allowing us to participate in the care of the patient on the we will be on standby at this time. The impression and plan of care has been dictated as directed. I performed a history and examination of this patient, discussed the same with the dictator. I agree with the dictator's note ,documented as a scribe. Any additional findings or plans will be noted.
[2020-05-05 17:14] LABS: Glucose,Whole Blood 261 mg/dL (75-99)
--- NOTE | 2020-05-05 18:25 | PN ---
PROGRESS NOTE DATE OF SERVICE: 05/05/2020 This 70-year-old gentleman who was admitted with acute severe pancreatitis and abdominal pain is improving significantly. No chest pain. No palpitations. No fever. Diet is being advanced. PHYSICAL EXAMINATION: Alert and oriented x3. Pulse 54, blood pressure 161/80, respiration 20, temperature 97.4, pulse ox 97% on room air. HEENT: Conjunctivae normal. NECK: No jugular venous distention. CARDIOVASCULAR SYSTEM: S1, S2 muffled. RESPIRATORY SYSTEM: Breath sounds diminished at the bases. No rhonchi. No crackles. ABDOMEN: Soft, non-tender. LEGS: No edema. No swelling. NERVOUS SYSTEM: No focal deficit. LABS: WBC 11.2, hemoglobin 11.7, sodium 140, potassium 4. ASSESSMENT: 1. Acute severe pancreatitis with severe abdominal pain. 2. Hepatic steatosis. 3. Dilated gallbladder. 4. Acute renal failure. 5. Possible right lower lobe pneumonia, atelectasis. 6. Hypertension. 7. Mild bilateral pleural effusion. 8. Diabetes mellitus, type 2. 9. Hyperlipidemia. 10.History of anxiety, depression. 11.Increased white count. 12.Anemia. 13.History of prostate cancer. 14.FULL CODE. RECOMMENDATIONS AND DISCUSSION: I recommend to continue current medications, continue with the monitoring, symptomatic treatment. Continue with empiric antibiotics. Otherwise, follow closely with Gastroenterology and Surgery. Guarded prognosis. Further recommendations to follow. MMODL / IJN: [id number] /
[2020-05-05 20:25] LABS: Glucose,Whole Blood 195 mg/dL (75-99)
[2020-05-05] MEDS: ALPRAZolam 0.25 MG TAB PO SCH (20:33)
[2020-05-05] MEDS: LATANOPROST 0.005% OPHTH DROPS 2.5 ML BTL BOTH EYES SCH (20:33)
[2020-05-06] MEDS: HYDROcodone/APAP 5-325MG 1 EACH TAB PO PRN ×3 (01:24→12:08)
[2020-05-06] MEDS: MEROPENEM 2 GM in SODIUM CHLORIDE 0.9% 100 ML IVPB SCH ×2 (04:22→12:05)
[2020-05-06] MEDS: SODIUM CHLORIDE 0.9% 1,000 ML IV SCH (04:25)
[2020-05-06 07:28] LABS: Glucose,Whole Blood 178 mg/dL (75-99)
[2020-05-06] MEDS: INSULIN ASPART (NovoLOG) 100 UNIT/ML VIAL SQ SCH ×2 (07:33→12:08)
[2020-05-06] MEDS: PANTOPRAZOLE 40 MG/10 ML VIAL IVP SCH (07:34)
[2020-05-06] MEDS: HEPARIN SODIUM,PORCINE 5,000 UNIT/ML 1 ML VIAL SQ SCH (07:34)
[2020-05-06] MEDS: atenoloL 25 MG TAB PO SCH (07:34)
[2020-05-06] MEDS: lisinopriL 20 MG TAB PO SCH (07:34)
[2020-05-06] MEDS: ASPIRIN 81 MG PO SCH (07:34)
[2020-05-06] MEDS: SERTRALINE 100 MG TAB PO SCH (07:35)
[2020-05-06] MEDS: DOCUSATE 100 MG CAP PO SCH (07:35)
[2020-05-06 07:48] VITALS: BP 173/88; PULSE 69; RESP 20; TEMP 97.9
[2020-05-06 09:46] LABS: Basophils % (A) 0 %; Eosinophils # (A) 0.5 k/uL (0-0.7); Eosinophils % (A) 5 %; HGB 12.6 gm/dL (13.0-17.5); Lymphocytes # (A) 1.1 k/uL (1.0-4.8); Lymphocytes % (A) 11 %; MCH 28.5 pg (25.0-35.0); MCHC 31.6 g/dL (31.0-37.0); MCV 90.3 fL (80.0-100.0); Mean Platelet Volume 6.8; Monocytes # (A) 0.8 k/uL (0-1.0); Monocytes % (A) 7 %; Neutrophils # (A) 8.1 k/uL (1.3-7.7); Neutrophils % (A) 75 %; Platelet Count 349 k/uL (150-450); RBC 4.43 m/uL (4.30-5.90); RDW 13.2 % (11.5-15.5); WBC 10.8 k/uL (3.8-10.6)
--- NOTE | 2020-05-06 11:25 | P.PN ---
Subjective Progress Note Date: 05/06/20 CHIEF COMPLAINT: Abdominal pain HISTORY OF PRESENT ILLNESS: Patient is being followed for his acute pancr eatitis. Patient still complaining of abdominal pain. Patient complains of pain and in the epigastric and left side of abdomen. He is still requiring oral pain medications on a regular basis. He is currently on a full liquid diet. He is only able to tolerate the oatmeal. Other liquids such as juices increases pain. He denies any nausea or vomiting. He is afebrile. WBC 10.8. PHYSICAL EXAM: VITAL SIGNS: Reviewed GENERAL: Well-developed in no acute distress. HEENT: No sclera icterus. Extraocular movements grossly intact. Moist buccal mucosa. Head is atraumatic, normocephalic. Hears conversational speech. No nasal drainage. NECK: Supple without lymphadenopathy. CHEST: Non-labored respirations and equal bilateral excursions. CARDIOVASCULAR: Palpable 2+ radial pulses. ABDOMEN: Soft. Nondistended. Tenderness with palpation of the epigastric area and left side of the abdomen MUSCULOSKELETAL: No clubbing or cyanosis. NEUROLOGIC: No focal or lateralizing signs. Cranial nerves II through XII grossly intact. PSYCH: Appropriate affect. Alert and oriented to person, place and time. SKIN: Well perfused. Good skin turgor. ASSESSMENT: 1. Severe Acute pancreatitis 2. Possible ileus secondary to pancreatitis 3. Cholecystitis 4. Diabetes mellitus type 2 5. Essential hypertension 6. History of prostate cancer 7. General anxiety and depression PLAN: -Recommend outpatient management of cholecystitis -Recommend cautious management of pancreatitis -Diet management per GI service -GI prophylaxis Pepcid and DVT prophylaxis subcu heparin Physician Desizing Machine Operator note has been reviewed by physician. Signing provider agrees with the documented findings, assessment, and plan of care. Objective - Vital Signs Vital signs: Vital Signs Temp 97.9 F 05/06/20 07:47 Pulse 69 05/06/20 07:47 Resp 20 05/06/20 07:47 BP 173/88 05/06/20 07:47 Pulse Ox 98 05/06/20 07:47 Intake & Output 05/05/20 05/06/20 05/06/20 18:59 06:59 18:59 Intake Total 750 Balance 750 Weight 88 kg Intake: Intake, IV Titration 750 Amount Meropenem 2 gm In Sodium 200 Chloride 0.9% 100 ml @ 33 .3 mls/hr IVPB Q8H [facility] Rx #:[id number] Sodium Chloride 0.9% 1, 550 000 ml @ 50 mls/hr IV . Q20H [facility] Rx#:[id number] Other: Voiding Method Toilet Toilet # Voids 2 2 # Bowel Movements 1 - Labs CBC & Chem 7: 05/06/20 07:53 05/05/20 06:43 Labs: Abnormal Lab Results - Last 24 Hours (Table) 05/05/20 05/05/20 05/06/20 Range/Units 17:12 20:23 07:23 WBC (3.8-10.6) k/uL Hgb (13.0-17.5) gm/dL Neutrophils # (1.3-7.7) k/uL POC Glucose (mg/dL) 261 H 195 H 178 H (75-99) mg/dL 05/06/20 Range/Units 07:53 WBC 10.8 H (3.8-10.6) k/uL Hgb 12.6 L (13.0-17.5) gm/dL Neutrophils # 8.1 H (1.3-7.7) k/uL POC Glucose (mg/dL) (75-99) mg/dL Microbiology - Last 24 Hours (Table) 05/03/20 12:20 Blood Culture - Preliminary Blood No Growth after 48 hours
[2020-05-06 12:05] LABS: Glucose,Whole Blood 219 mg/dL (75-99)
[2020-05-06 17:23] LABS: African American GFR (CKD) 79.5 (60.0-200.0); Anion Gap 10.2 mmol/L (4.00-12.00); BUN/Creat Ratio 12.73 Ratio (12.00-20.00); Calcium 8.7 mg/dL (8.7-10.3); Carbon Dioxide 26.8 mmol/L (21.6-31.8); Magnesium 1.9 mg/dL (1.5-2.4); Non-African American GFR(CKD) 68.6 (60.0-200.0); Phosphorus 2.2 mg/dL (2.4-5.1); Potassium 4.2 mmol/L (3.5-5.5)
[2020-05-06] MEDS ORDERED: PANTOPRAZOLE 40 MG TABLET PO SCH (17:30)
--- NOTE | 2020-05-07 06:23 | DS ---
DISCHARGE SUMMARY DATE OF SERVICE: 05/06/2020 FINAL DIAGNOSES: 1. Acute severe pancreatitis with severe abdominal pain. 2. Hepatic steatosis. 3. Dilated gallbladder. 4. Acute renal failure possible acute tubular necrosis. 5. Possible right lower lobe pneumonia with atelectasis, improved. 6. Hypertension. 7. Mild bilateral pleural effusion. 8. Diabetes mellitus type 2. 9. Hyperlipidemia. 10.History of anxiety, depression. 11.Increased WBC. 12.Anemia. 13.History of prostate cancer. 14.FULL CODE. DISCHARGE DISPOSITION: The patient will be discharged in stable condition with guarded prognosis. Total time was 35 minutes. HISTORY OF PRESENT ILLNESS: This 70-year-old gentleman with a past medical history of multiple medical problems was admitted with acute severe pancreatitis and abdominal pain. Patient was treated in conjunction with surgery and as well as Gastroenterology. Patient improved significantly. Patient also given TPN for some time. The chest CTA was negative for any pulmonary embolism. CAT scan of the abdomen was done and recommend repeat CAT scan down the line in 2 to 3 months. Otherwise, the patient's amylase and lipase normalized. The patient was seen by Surgery, recommended outpatient followup. On exam, vitals are stable. CARDIOVASCULAR: S1, S2 muffled. ABDOMEN: Soft. NERVOUS SYSTEM: No focal deficits. DISCHARGE ADVICE: 1. Diet is cardiac. 2. Activity limited until followup. 3. Follow up with Dr. Sauceda in 2 to 3 days. 4. Follow up with Dr. Shah and Dr. Severino as recommended. Medications are: 1. Aspirin 81 mg daily. 2. Atenolol 25 mg p.o. daily. 3. Metformin 500 mg p.o. . 4. Glucotrol 5 mg p.o. daily. 5. Latanoprost 1 drop both eyes. 6. Simvastatin 40 mg p.o. daily. 7. Vasotec 5 mg p.o. b.i.d. 8. Xanax 0.25 at bedtime. 9. Zoloft 100 mg p.o. b.i.d. 10.[place] 5 mg q.6 p.r.n. 11.Protonix 40 mg p.o. b.i.d. 12.Zofran 4 mg p.o. q.8 p.r.n. Once again the patient will be discharged in a stable condition with guarded prognosis. MMODL / IJN: [id number] / MTDD
== END 2020-05-06 13:53 | disposition home or self-care (01) | DRG 438 ==
LOC: 4SSUR 04-28 01:39 → 5NMEDONC 04-30 16:07
PROVIDERS: ADMIT Internal Medicine; ATTEND Internal Medicine
PROC: 3E0336Z Introduction of Nutritional Substance into Peripheral Vein, Percutaneous Approach (ICD-10-PCS; 2020-05-02)
PROC: 02HV33Z Insertion of Infusion Device into Superior Vena Cava, Percutaneous Approach (ICD-10-PCS; principal; 2020-05-02 07:30)
DX: K85.91 Acute pancreatitis with uninfected necrosis, unspecified (principal); N17.0 Acute kidney failure with tubular necrosis; J18.9 Pneumonia, unspecified organism; K56.7 Ileus, unspecified; J90 Pleural effusion, not elsewhere classified; J98.11 Atelectasis; R18.8 Other ascites; K76.0 Fatty (change of) liver, not elsewhere classified; E78.5 Hyperlipidemia, unspecified; E11.9 Type 2 diabetes mellitus without complications; I10 Essential (primary) hypertension; F41.8 Other specified anxiety disorders; K81.9 Cholecystitis, unspecified; D64.9 Anemia, unspecified; N28.1 Cyst of kidney, acquired; N20.0 Calculus of kidney; Z79.82 Long term (current) use of aspirin; Z79.84 Long term (current) use of oral hypoglycemic drugs; Z79.899 Other long term (current) drug therapy; Z90.79 Acquired absence of other genital organ(s); Z85.46 Personal history of malignant neoplasm of prostate; Z80.1 Family history of malignant neoplasm of trachea, bronchus and lung; Z98.890 Other specified postprocedural states; Z80.41 Family history of malignant neoplasm of ovary
CPT/HCPCS: 36573; 71045; 71275; 74177; 76700; 80048; 80053; 82040; 82150; 82247; 82330; 82787; 83690; 83735; 84075; 84100; 84145; 84155; 84450; 84460; 84478; 84484; 85025; 85610; 86038; 86140; 87040; 93005

== ENCOUNTER 2020-06-02 08:54 | Day surgery (SDC) | payer MEDICARE ==
[2020-05-28 14:40] VITALS: BMI 25.7
--- NOTE | 2020-06-02 01:12 | P.GSHP ---
History of Present Illness H&P Date: 06/02/20 CHIEF COMPLAINT: Cholecystitis HISTORY OF PRESENT ILLNESS: The patient is a 70-year-old male who presents with history of epigastric including right upper quadrant abdominal pain. He underwent diagnostic studies for her gallbladder. Separately his clinical picture was consistent with cholecystitis. Now he presents for surgical intervention. PAST MEDICAL HISTORY: Please see list PAST SURGICAL HISTORY: Please see list MEDICATIONS: Please see list ALLERGIES: Please see list SOCIAL HISTORY: Please see list FAMILY HISTORY: Please see list REVIEW OF ORGAN SYSTEMS: CONSTITUTIONAL: No reports of fevers or chills. PHYSICAL EXAM: VITAL SIGNS: Afebrile vital signs stable GENERAL: Well-developed pleasant in no acute distress. HEENT: No scleral icterus. Extraocular movements grossly intact. Moist buccal mucosa. NECK: Supple without lymphadenopathy. CHEST: Unlabored respirations. Equal bilateral excursions. CARDIOVASCULAR: Regular rate regular rhythm rhythm. Distal 2+ pulses. ABDOMEN: Soft, nondistended. Tender along the epigastrium and right upper quadrant. MUSCULOSKELETAL: No clubbing, cyanosis, or edema. NEURO: Cranial nerves II to XII within normal limits. No focal or lateralizing signs. PSYCH: Alert and oriented to person, place and time. SKIN: Well-perfused good skin turgor. ASSESSMENT: 1. Epigastric and right upper quadrant abdominal pain 2. Chronic cholecystitis 3. Symptomatic gallstones. PLAN: 1. Will need a robotic cholecystectomy possible open. Benefits and risks were described. 2. Heparin for DVT prophylaxis 5000 units. 3. Antibiotic prophylaxis. Past Medical History Past Medical History: Cancer, Diabetes Mellitus, Hyperlipidemia, Hypertension, Prostate Disorder Additional Past Medical History / Comment(s): prostate cancer, gallstones, pancreatitis Apr 2020, History of Any Multi-Drug Resistant Organisms: None Reported Past Surgical History: Heart Catheterization, Hernia Repair, Orthopedic Surgery, Prostate Surgery, Tonsillectomy Additional Past Surgical History / Comment(s): joana shoulder rotator cuff, arthroscopy joana knee surgeries, partial amputation of left great toe from infection, joana foot surgery(pin), Past Anesthesia/Blood Transfusion Reactions: No Reported Reaction Smoking Status: Former smoker - Past Family History Mother Family Medical History: Cancer Additional Family Medical History / Comment(s): ovarian and breast cancer Father Family Medical History: Cancer Daughter(s) Family Medical History: Cancer Medications and Allergies Home Medications Medication Instructions Recorded Confirmed Type ALPRAZolam [Xanax] 0.25 mg PO HS 04/28/20 05/28/20 History Aspirin [Adult Low Dose Aspirin EC] 81 mg PO DAILY 04/28/20 05/28/20 History Enalapril Maleate [Vasotec] 5 mg PO BID 04/28/20 05/28/20 History Latanoprost/Pf [Latanoprost 0.005% 1 drop BOTH EYES HS 04/28/20 05/28/20 History Eye Drop] Sertraline HCl [Zoloft] 100 mg PO PC-SUPPER 04/28/20 05/28/20 History Simvastatin 40 mg PO DAILY 04/28/20 05/28/20 History atenoloL [Atenolol] 25 mg PO DAILY 04/28/20 05/28/20 History glipiZIDE XL [Glucotrol XL] 5 mg PO DAILY 04/28/20 05/28/20 History metFORMIN HCL ER [Glucophage Xr] 500 mg PO AC-BID 04/28/20 05/28/20 History Pantoprazole Sodium [Protonix] 40 mg PO BID #60 tablet. 05/06/20 05/28/20 Rx Allergies Allergy/AdvReac Type Severity Reaction Status Date / Time No Known Allergies Allergy Verified 05/28/20 14:06
[~2020-06-02 08:54] MED LIST: ACETAMINOPHEN TAB 500 MG TAB PO STA; DEXAMETHASONE SOD PHOSPHATE 4 MG/ML 1 ML VIAL IV ONE; GABAPENTIN 300 MG CAP PO STA; HEPARIN SODIUM,PORCINE 5,000 UNIT/ML 1 ML VIAL SQ PRN; HEPARIN SODIUM,PORCINE 5,000 UNIT/ML 1 ML VIAL SQ STA; HYDROmorphone 0.5 MG/0.5 ML SYRINGE IVP PRN; LACTATED RINGERS 1,000 ML IV SCH; LIDOCAINE 1% (10MG/ML) FOR IV START INTRADERMA PRN; MELOXICAM 7.5 MG TAB PO STA; MIDAZOLAM 2 MG/2 ML VIAL IV PRN; ONDANSETRON 4 MG/2 ML VIAL IVP ONE; TAMSULOSIN 0.4 MG CAP.ER.24H PO STA
[2020-06-02 09:26] LABS: Glucose,Whole Blood 139 mg/dL (75-99)
[2020-06-02 09:39] LABS: Basophils # (A) 0.1 k/uL (0-0.2); Basophils % (A) 1 %; Eosinophils # (A) 0.4 k/uL (0-0.7); Eosinophils % (A) 3 %; HCT 42.9 % (39.0-53.0); HGB 14.6 gm/dL (13.0-17.5); Lymphocytes # (A) 2.3 k/uL (1.0-4.8); Lymphocytes % (A) 18 %; MCH 29.5 pg (25.0-35.0); MCHC 34.1 g/dL (31.0-37.0); MCV 86.4 fL (80.0-100.0); Mean Platelet Volume 6.8; Monocytes # (A) 0.8 k/uL (0-1.0); Monocytes % (A) 7 %; Neutrophils # (A) 8.7 k/uL (1.3-7.7); Neutrophils % (A) 69 %; Platelet Count 247 k/uL (150-450); RBC 4.97 m/uL (4.30-5.90); RDW 13.3 % (11.5-15.5); WBC 12.6 k/uL (3.8-10.6)
[2020-06-02 09:54] LABS: Albumin 4.7 g/dL (3.5-5.0); Calcium 9.7 mg/dL (8.4-10.2); Total Bilirubin 0.5 mg/dL (0.2-1.3)
[2020-06-02 10:18] LABS: Potassium 5.1 mmol/L (3.5-5.1)
[2020-06-02] MEDS ORDERED: SUCCINYLCHOLINE CHLORIDE 100 MG/5 ML SYR IV ONE (11:10)
[2020-06-02] MEDS ORDERED: ePHEDrine SULFATE/0.9% NACL/PF 50 MG/5 ML SYRINGE IV ONE (11:10)
[2020-06-02] MEDS ORDERED: LIDOCAINE 1% INJ 10MG/ML (20 ML MDV) ONE (11:10)
[2020-06-02] MEDS ORDERED: MIDAZOLAM 2 MG/2 ML VIAL ONE (11:10)
[2020-06-02] MEDS ORDERED: NEOSTIGMINE 1 MG/ML 10 ML VIAL ONE (11:10)
[2020-06-02] MEDS ORDERED: GLYCOPYRROLATE 0.2 MG/ML 2 ML VIAL ONE (11:10)
[2020-06-02] MEDS ORDERED: fentaNYL (PF) 50 MCG/ML 2 ML AMP ONE (11:10)
[2020-06-02] MEDS ORDERED: PROPOFOL 10 MG/ML 20 ML VIAL IV ONE (11:10)
[2020-06-02] MEDS ORDERED: ROCURONIUM 10 MG/ML (10 ML VIAL) IV ONE (11:10)
[2020-06-02] MEDS ORDERED: LIDOCAINE 1%-EPI 1:100,000 20 ML VIAL SQ ONE (11:38)
[2020-06-02] MEDS ORDERED: LACTATED RINGERS 1,000 ML IV ONE ×3 (12:09→14:30)
[2020-06-02 12:32] VITALS: TEMP 97
[2020-06-02 12:39] LABS: Glucose,Whole Blood 243 mg/dL (75-99)
[2020-06-02] MEDS ORDERED: INSULIN ASPART (NovoLOG) 100 UNIT/ML VIAL SQ ONE (12:44)
[2020-06-02] MEDS ORDERED: KETOROLAC 15 MG/ML 1 ML VIAL IVP PRN (12:54)
[2020-06-02] MEDS ORDERED: oxyCODONE-APAP 5-325MG 1 EACH TAB PO PRN (12:54)
--- NOTE | 2020-06-02 12:58 | P.OP ---
Date of Procedure: 06/02/20 Description of Procedure: SURGEON: TEREZA SEVERINO MD PREOPERATIVE DIAGNOSES: 1. Gallstone pancreatitis due to symptomatic gallstones 2. Diabetes type 2, [id number] 3. Hyperlipidemia 4. Hypertensive heart disease 5. Gastroesophageal reflux disease 6. Generalized anxiety disorder POSTOPERATIVE DIAGNOSES: 1. Gallstone pancreatitis due to symptomatic gallstones 2. Diabetes type 2, [id number] 3. Hyperlipidemia 4. Hypertensive heart disease 5. Gastroesophageal reflux disease 6. Generalized anxiety disorder 7. Chronic cholecystitis OPERATION: Robotic-assisted da Nikkie Xi laparoscopic cholecystectomy, multiport with FIREFLY ESTIMATED BLOOD LOSS: 5 mL. SPECIMENS REMOVED: Gallbladder. COMPLICATIONS: None. OPERATIVE FINDINGS: 1. Peritoneal adhesions along gallbladder infundibulum consistent with chronic cholecystitis INDICATIONS: The patient is a 70-year-old male who presents with symptomatic gallstones including recent history of gallstone pancreatitis. Robotic assisted laparoscopic approach was described. Benefits and risks of the procedure including but not limited to bleeding, infection, injury to the biliary tree was described. Informed consent was obtained. DESCRIPTION OF PROCEDURE: Patient was brought to the operating room, placed in supine position. After general induction, the abdomen had been prepped and draped in standard sterile fashion. The robotic da Nikkie XI system was primed. After a timeout protocol was performed, the patient had been prepped and draped in standard sterile fashion. The patient was injected with indocyanine green. A 5 mm 0 degrees laparoscopic trocar entry was performed along the left upper quadrant. The abdomen insufflated to 15 mmHg pressure which was tolerated well. Diagnostic laparoscopy demonstrated no injury to bowel viscera or mesentery. The liver surface was unremarkable. Next, two 8 mm robotic ports were placed along the right upper abdomen. The camera 8-mm port was maintained along the epigastrium. Another 8 mm port was placed along the left upper abdominal wall after exchanging the 5 mm port. Please note that the ports were placed at least 10 to 15 cm away from the target anatomy of the gallbladder. The robot was docked along the left lateral abdomen. The patient was repositioned in reverse Trendelenburg position. Using a grasper for arm 3, a grasper for arm 4, including hook cautery for arm 1, the robotic system was docked and primed as described. Instruments were interchanged by the central supply assistant including hook cautery, Bovie cautery and clip appliers. I had sat at the console. The gallbladder was scarred with peritoneal adhesions. Next attention was brought to the infundibulum and cystic structures. The infundibulum and cystic duct were dissected free from surrounding tissues. The cystic duct was isolated. FIREFLY was used to identify the cystic artery and cystic structures. A critical view of safety was obtained. Large PLASTIC clips were used throughout the entire case. Using a clip hand outside cutter, 2 clips were placed at the junction of the infundibulum and cystic duct. The cystic duct was divided between clips. Next, the cystic artery was similarly clipped and cauterized. Electro-Bovie cautery was used to remove the gallbladder from the hepatic fossa. Hemostasis was checked and found to be adequate. The robot was undocked. I re-scrubbed into the case. Using a 10 mm Endo Catch bag via the left upper quadrant incision, the specimen was removed from the abdominal cavity. All pneumoperitoneum instruments were evacuated from the abdominal cavity. The incisions were reapproximated using 4-0 Monocryl in an interrupted subcuticular fashion. Fascial defects were less than 8 mm in size. Please note along the trocar sites, local anesthetic was placed as a field block prior to insertion of all instruments. Liquid glue was applied to the skin. At the end of the procedure needle, sponge, and instrument count had been verified correct by the costume technician. The patient was transferred to postanesthesia care unit in stable condition. Intraoperative films were shared with the patient's family. Plan - Discharge Summary New Discharge Prescriptions: New Ibuprofen 800 mg PO Q8HR PRN #30 tablet PRN Reason: Pain Acetaminophen Tab [Tylenol Tab] 1,000 mg PO Q6HR PRN #30 tablet Continue atenoloL [Atenolol] 25 mg PO DAILY Enalapril Maleate [Vasotec] 5 mg PO BID Simvastatin 40 mg PO DAILY metFORMIN HCL ER [Glucophage Xr] 500 mg PO AC-BID Sertraline HCl [Zoloft] 100 mg PO PC-SUPPER ALPRAZolam [Xanax] 0.25 mg PO HS Aspirin [Adult Low Dose Aspirin EC] 81 mg PO DAILY glipiZIDE XL [Glucotrol XL] 5 mg PO DAILY Latanoprost/Pf [Latanoprost 0.005% Eye Drop] 1 drop BOTH EYES HS Pantoprazole Sodium [Protonix] 40 mg PO BID #60 tablet. Discharge Medication List ALPRAZolam [Xanax] 0.25 mg PO HS 04/28/20 [History] Aspirin [Adult Low Dose Aspirin EC] 81 mg PO DAILY 04/28/20 [History] Enalapril Maleate [Vasotec] 5 mg PO BID 04/28/20 [History] Latanoprost/Pf [Latanoprost 0.005% Eye Drop] 1 drop BOTH EYES HS 04/28/20 [History] Sertraline HCl [Zoloft] 100 mg PO PC-SUPPER 04/28/20 [History] Simvastatin 40 mg PO DAILY 04/28/20 [History] atenoloL [Atenolol] 25 mg PO DAILY 04/28/20 [History] glipiZIDE XL [Glucotrol XL] 5 mg PO DAILY 04/28/20 [History] metFORMIN HCL ER [Glucophage Xr] 500 mg PO AC-BID 04/28/20 [History] Pantoprazole Sodium [Protonix] 40 mg PO BID #60 tablet. 05/06/20 [Rx] Acetaminophen Tab [Tylenol Tab] 1,000 mg PO Q6HR PRN #30 tablet 06/02/20 [Rx] Ibuprofen 800 mg PO Q8HR PRN #30 tablet 06/02/20 [Rx] Follow up Appointment(s)/Referral(s): Tereza Severino MD [STAFF PHYSICIAN] - 06/10/20 Patient Instructions/Handouts: *[facility] - Managing Your Pain After Surgery Without Opioids, Laparoscopic Cholecystectomy (DC), Low Fat Diet (DC) Activity/Diet/Wound Care/Special Instructions: Recommend low-fat diet for the next 2 days. No lifting over 10 pounds in 2 weeks until Jun 16. May shower. No bath tub soaks for two weeks until Jun 16 Diet as tolerated. Use Tylenol and ibuprofen or Aleve scheduled for the next 24-48 hours for best pain relief. Use ice along incisions for the today to prevent swelling. Discharge Disposition: HOME SELF-CARE
[2020-06-02] MEDS ORDERED: SIMETHICONE 80 MG CHEWABLE PO SCH (13:00)
[2020-06-02] MEDS ORDERED: ACETAMINOPHEN TAB 500 MG TAB ONE ×2 (15:49→16:08)
[2020-06-02 15:54] VITALS: BP 127/60; PULSE 63; RESP 16
[2020-06-02] MEDS ORDERED: ACETAMINOPHEN TAB 500 MG TAB PO ONE (16:08)
== END 2020-06-02 16:10 | disposition home or self-care (01) ==
LOC: OR 08:54
PROVIDERS: ATTEND Surgery Plastic and Reconstructive Surgery
DX: K81.1 Chronic cholecystitis (principal); K66.0 Peritoneal adhesions (postprocedural) (postinfection); K85.10 Biliary acute pancreatitis without necrosis or infection; E11.9 Type 2 diabetes mellitus without complications; E78.5 Hyperlipidemia, unspecified; I11.9 Hypertensive heart disease without heart failure; K21.9 Gastro-esophageal reflux disease without esophagitis; F41.1 Generalized anxiety disorder; K08.409 Partial loss of teeth, unspecified cause, unspecified class; Z85.46 Personal history of malignant neoplasm of prostate; Z98.890 Other specified postprocedural states; Z87.19 Personal history of other diseases of the digestive system; Z90.89 Acquired absence of other organs; Z89.422 Acquired absence of other left toe(s); Z87.891 Personal history of nicotine dependence; Z79.899 Other long term (current) drug therapy; Z79.82 Long term (current) use of aspirin; Z79.84 Long term (current) use of oral hypoglycemic drugs; Z80.41 Family history of malignant neoplasm of ovary; Z80.3 Family history of malignant neoplasm of breast; Z80.9 Family history of malignant neoplasm, unspecified
CPT/HCPCS: 47562; 88304; 80053; 85025; J2250; J1644; J1100; J2710; J0690; J2405; J2001; J3010; J1885; J0330; J2704; J1170

== ENCOUNTER → 2020-10-23 | Outpatient (CLI) | payer MEDICARE ==
--- NOTE | 2020-10-29 11:19 | P.ARTDOP ---
Arterial Doppler LOWER EXTREMITY ARTERIAL DOPPLER: DATE OF SERVICE: 10/23/2020 Reason for study: Bilateral foot pain. Doppler waveforms: Multiphasic bilaterally throughout although toe pressures are very blunted on the right. Pulse volume recording: []. Pressure gradients: None noted. Ankle-brachial indices: 1 on the right and 0.92 on the left. Toe brachial indices: 0.7 to on the right, [] on the left Impression: Normal study proximally. Vasospastic phenomenon accounting for toe waveforms or less likely very distal disease. Medical correlation recommended..
== END | disposition home or self-care (01) ==
LOC: RADUSWWP 12:45
PROVIDERS: ATTEND Podiatrist Foot & Ankle Surgery
DX: I73.9 Peripheral vascular disease, unspecified (principal)
CPT/HCPCS: 93923

== ENCOUNTER → 2022-03-08 | Outpatient (CLI) | payer MEDICARE ==
[2022-03-08 13:40] LABS: Basophils # (A) 0.1 k/uL (0-0.2); Basophils % (A) 0 %; Eosinophils # (A) 0.1 k/uL (0-0.7); Eosinophils % (A) 1 %; HCT 46.8 % (39.0-53.0); HGB 15.5 gm/dL (13.0-17.5); Lymphocytes # (A) 1.7 k/uL (1.0-4.8); Lymphocytes % (A) 9 %; MCH 30.2 pg (25.0-35.0); MCHC 33.1 g/dL (31.0-37.0); MCV 91.2 fL (80.0-100.0); Mean Platelet Volume 7.2; Monocytes # (A) 1.5 k/uL (0-1.0); Monocytes % (A) 8 %; Neutrophils # (A) 14.8 k/uL (1.3-7.7); Neutrophils % (A) 79 %; Platelet Count 301 k/uL (150-450); RBC 5.12 m/uL (4.30-5.90); RDW 12.9 % (11.5-15.5); WBC 18.6 k/uL (3.8-10.6)
[2022-03-08 13:48] LABS: ALT 17 U/L (4-49); AST 17 U/L (17-59); African American GFR (CKD) 66 (>60 ml/min/1.73 sqM); Albumin 4.4 g/dL (3.5-5.0); Albumin/Globulin Ratio 1.6; Alkaline Phosphatase 80 U/L (38-126); Anion Gap 10 mmol/L; Blood Urea Nitrogen 25 mg/dL (9-20); Calcium 9.4 mg/dL (8.4-10.2); Carbon Dioxide 26 mmol/L (22-30); Chloride 102 mmol/L (98-107); Globulin 2.7 g/dL; Glucose 216 mg/dL (74-99); Non-African American GFR(CKD) 57 (>60 ml/min/1.73 sqM); Sodium 138 mmol/L (137-145); Total Bilirubin 0.7 mg/dL (0.2-1.3); Total Protein 7.1 g/dL (6.3-8.2)
[2022-03-08 14:03] LABS: C Reactive Protein 6.9 mg/dL (<1.0)
--- NOTE | 2022-03-08 15:30 | CT ---
EXAMINATION TYPE: CT abdomen pelvis w con CT DLP: 971.6 mGycm, Automated exposure control for dose reduction was used. DATE OF EXAM: 03/08/2022 3:22 PM COMPARISON: THIS EXAM WAS READ DURING PACS DOWNTIME, NO PRIORS AVAILABLE. CLINICAL INDICATION:Male, 71 years old with history of R10.32 LEFT LOWER QUADRANT PAIN,R19.4; left lo wer quadrant pain TECHNIQUE: Axial CT of the abdomen and pelvis. Sagittal and coronal reformats were created on a [employer] workstation. Contrast used:70cc mL of Isovue 300 with IV Contrast, Oral contrast used: with Oral Contrast FINDINGS: LOWER CHEST: Unremarkable ABDOMEN LIVER: Unremarkable GALLBLADDER AND BILE DUCTS: The gallbladder is nonvisualized and may be surgically absent.. PANCREAS: Unremarkable. SPLEEN: Unremarkable. ADRENAL GLANDS: Unremarkable. KIDNEYS AND URETERS: No evidence of hydronephrosis or renal calculus. The ureters are unremarkable. PELVIS BLADDER: Unremarkable REPRODUCTIVE: Unremarkable. ABDOMEN & PELVIS STOMACH AND BOWEL: There are colonic diverticula present with sequential wall thickening of the sigmo id colon and adjacent fat stranding changes. No organizing fluid collection or evidence of pneumoperi toneum. No evidence of bowel obstruction. The appendix is normal. PERITONEUM: No evidence of pneumoperitoneum or free fluid. VASCULATURE: No evidence of aortic aneurysm. MUSCULOSKELETAL: No acute osseous abnormalities, mild multilevel disc degeneration changes are seen t hroughout the spine. LYMPH NODES: No gross evidence for lymphadenopathy. SOFT TISSUE/ABDOMINAL WALL: Fat filled left inguinal canal. IMPRESSION: Acute uncomplicated colonic diverticulitis/colitis of the sigmoid colon. No evidence of free air or o rganizing fluid collection. Consider colonoscopy after resolution of acute symptoms.
== END | disposition home or self-care (01) ==
LOC: RADCTMAIN 12:14
PROVIDERS: ATTEND Family Medicine
DX: R10.32 Left lower quadrant pain (principal); R19.4 Change in bowel habit; R53.83 Other fatigue
CPT/HCPCS: 80053; 85025; 86140; 74177; 36415; Q9967 ×2

== ENCOUNTER 2022-09-15 07:32 | Day surgery (SDC) | payer MEDICARE ==
[~2022-09-15 07:32] MED LIST changes: -ACETAMINOPHEN TAB 500 MG TAB PO STA; -DEXAMETHASONE SOD PHOSPHATE 4 MG/ML 1 ML VIAL IV ONE; -GABAPENTIN 300 MG CAP PO STA; -HEPARIN SODIUM,PORCINE 5,000 UNIT/ML 1 ML VIAL SQ PRN; -HEPARIN SODIUM,PORCINE 5,000 UNIT/ML 1 ML VIAL SQ STA; -HYDROmorphone 0.5 MG/0.5 ML SYRINGE IVP PRN; -MELOXICAM 7.5 MG TAB PO STA; -MIDAZOLAM 2 MG/2 ML VIAL IV PRN; -ONDANSETRON 4 MG/2 ML VIAL IVP ONE; -TAMSULOSIN 0.4 MG CAP.ER.24H PO STA
[2022-09-15 08:13] LABS: Glucose,Whole Blood 151 mg/dL (70-110)
[2022-09-15 08:14] VITALS: RESP 16; TEMP 97
[2022-09-15] MEDS ORDERED: PROPOFOL 10 MG/ML 20 ML VIAL IV ONE (08:54)
--- NOTE | 2022-09-15 09:14 | P.PCN ---
Date of Procedure: 09/15/22 Procedure(s) Performed: BRIEF HISTORY: Patient is a 72-year-old pleasant white male scheduled for an elective colonoscopy as a part of screening for colon cancer/polyps cologuard PROCEDURE PERFORMED: Colonoscopy. PREOPERATIVE DIAGNOSIS: Screening for colon cancer/positive cologuard IV sedation per Anesthesia. PROCEDURE: After informed consent was obtained, the patient, was brought into the endoscopy unit. IV sedation was administered by Anesthesia under continuous monitoring. Digital rectal examination was normal. Initially the Olympus CF-160 flexible video colonoscope was then inserted in the rectum, gradually advanced into the cecum without any difficulty. Careful examination was performed as the scope was gradually being withdrawn. Ileocecal valve and the appendiceal orifice were visualized and appeared normal. Prep was excellent. Mucosa of the cecum, ascending colon, transverse colon, descending colon, sigmoid colon, and rectum appeared normal. Scattered diffuse diverticulosis Retroflexion was performed in the rectum and no lesions were seen. The patient tolerated the procedure well. IMPRESSION: Normal-appearing colon from rectum to cecum with no evidence of colorectal neoplasia. Scattered diffuse diverticulosis. RECOMMENDATIONS: Findings of this examination were discussed with the patient well as his family. He was advised to have a repeat screening colonoscopy in 10 years..
[2022-09-15 09:46] VITALS: BP 128/77; PULSE 63
== END 2022-09-15 09:51 | disposition home or self-care (01) ==
LOC: ORWHC2ENDO 07:32
PROVIDERS: ATTEND Internal Medicine Gastroenterology
DX: K57.30 Diverticulosis of large intestine without perforation or abscess without bleeding (principal); I10 Essential (primary) hypertension; E78.5 Hyperlipidemia, unspecified; E11.9 Type 2 diabetes mellitus without complications; Z85.46 Personal history of malignant neoplasm of prostate; Z93.3 Colostomy status; F41.9 Anxiety disorder, unspecified; Z79.84 Long term (current) use of oral hypoglycemic drugs; Z79.899 Other long term (current) drug therapy; Z79.82 Long term (current) use of aspirin
CPT/HCPCS: 45378; J2704

== ENCOUNTER → 2024-07-12 | Outpatient (CLI) | payer MEDICARE ==
[2024-07-12 15:41] LABS: Basophils # (A) 0.06 X 10*3/uL (0.00-0.10); Basophils % (A) 0.5 %; Eosinophils # (A) 0.19 X 10*3/uL (0.04-0.35); Eosinophils % (A) 1.7 %; HCT 45.3 % (39.6-50.0); HGB 15.2 g/dL (13.0-17.0); Lymphocytes % (A) 15.4 %; MCHC 33.6 g/dL (32.0-37.0); MCV 86.3 FL (80.0-97.0); Mean Platelet Volume 9.6 FL (9.5-12.2); Monocytes # (A) 0.95 X 10*3/uL (0.20-1.00); Monocytes % (A) 8.6 %; NRBC Per 100 WBC 0 X 10*3/uL (0.00-0.01); Neutrophils # (A) 8.08 X 10*3/uL (1.80-7.70); Neutrophils % (A) 73.3 %; Platelet Count 304 X 10*3/uL (140-440); RBC 5.25 X 10*6/uL (4.40-5.60); RDW 12.7 % (11.5-14.5); WBC 11.03 X 10*3/uL (4.50-10.00)
[2024-07-12 20:55] LABS: ALT 18 U/L (10-49); AST 16 U/L (14-35); Albumin 4.5 g/dL (3.8-4.9); Albumin/Globulin Ratio 1.61 Ratio (1.60-3.17); Alkaline Phosphatase 76 U/L (41-126); BUN/Creat Ratio 20.62 Ratio (12.00-20.00); Blood Urea Nitrogen 26.8 mg/dL (9.0-27.0); Calcium 9.9 mg/dL (8.7-10.3); Carbon Dioxide 25.1 mmol/L (21.6-31.8); Chloride 104 mmol/L (96-109); Globulin 2.8 g/dL (1.6-3.3); Glucose 203 mg/dL (70-110); Potassium 5.2 mmol/L (3.5-5.5); Sodium 140 mmol/L (135-145); Total Bilirubin 0.3 mg/dL (0.3-1.2); Total Protein 7.3 g/dL (6.2-8.2)
== END | disposition home or self-care (01) ==
LOC: LABWHC1 12:16
PROVIDERS: ATTEND Internal Medicine Gastroenterology
DX: R10.13 Epigastric pain (principal)
CPT/HCPCS: 36415; 80053; 85025